=== PATIENT | male | born 1965 | race Caucasian/White ===

== ENCOUNTER 2019-11-04 10:29 | Outpatient (CLI) | payer OTHER, SELFPAY ==
--- NOTE | 2019-11-06 19:44 | WPDPFTINT ---
PFT Interpretation PFT Interpretation: DOS: 11/04/2019 REQUESTING: Tera Clancy MD REASON FOR TESTING: Cough PULMONARY FUNCTION TESTS Results are reproducible. Spirometry: Normal FEV1, 96%. Normal FVC 93%. Normal FEV1%. [id number]% is 71%. No change with bronchodilator. Lung volumes: Normal TLC 108%. Mild increase in RV, 128% consistent with air trapping. Mild increase in airway resistance 139%. Diffusion: DLCO normal 78%. Flow volume loop: Mild scooping of the expiratory limb. IMPRESSION: Mild air trapping and mild increase in airway resistance which are consistent with an obstructive process. Lack of response to bronchodilator does not preclude use if clinically indicated. Christiane Rankin MD
== END 2019-11-04 10:30 | disposition home or self-care (01) ==
PROVIDERS: Visit Provider Student in an Organized Health Care Education/Training Program
DX: R05 Cough (principal); R94.2 Abnormal results of pulmonary function studies
CPT/HCPCS: 94060; 94726; 94729

== ENCOUNTER → 2021-07-18 09:45 | Outpatient (CLI) | payer OTHER, SELFPAY ==
--- NOTE | ~2021-07-18 | US_ITS ---
US thyroid INDICATION: Thyroid goiter TECHNIQUE: Real-time sonographic images of the thyroid gland were obtained. COMPARISON: No prior studies for comparison. FINDINGS: The right thyroid lobe measures 5 x 1.6 x 1.9 cm. The left thyroid lobe measures 4.7 x 1.3 x 1.9 cm. There is normal echotexture and echogenicity throughout the thyroid gland. There is an ova l spongiform hypoechoic left thyroid mass which is wider than tall and smoothly marginated, TR 2, robel suring 6 mm, not suspicious. Normal vascular flow is present. IMPRESSION: 1. Benign-appearing 6 mm left thyroid mass, not suspicious. Otherwise, unremarkable thyroid ultrasou nd. Reviewed, dictated and finalized at location A. CY WRITER IMPRESSION: 1. Benign-appearing 6 mm left thyroid mass, not suspicious. Otherwise, unremar kable thyroid ultrasound.
== END ==
PROVIDERS: PCP Student in an Organized Health Care Education/Training Program; Visit Provider Internal Medicine Endocrinology, Diabetes & Metabolism
DX: E04.9 Nontoxic goiter, unspecified (principal)
CPT/HCPCS: 76536

== ENCOUNTER → 2022-08-07 09:43 | Outpatient (CLI) | payer OTHER, SELFPAY ==
--- NOTE | ~2022-08-07 | US_ITS ---
US thyroid INDICATION: Thyroid goiter TECHNIQUE: Real-time sonographic images of the thyroid gland were obtained. COMPARISON: 07/18/2021 FINDINGS: The right thyroid lobe measures 5.2 x 1.5 x 1.9 cm. The left thyroid lobe measures 4.7 x 1 .4 x 1.7 cm. Thyroid is heterogeneous. There are multiple small thyroid masses, largest in the left l obe measuring 5 x 4 x 3 mm which appears solid, oval, wider than tall, hypoechoic, smoothly marginate d without internal echogenic foci, TR 4, likely benign. IMPRESSION: 1. Mildly enlarged thyroid gland. Multiple small nodules, largest in the left lobe measuring 5 mm wh ich does not meet sonographic criteria for biopsy. Reviewed, dictated and finalized at location A. NG CONSULTANT IMPRESSION: 1. Mildly enlarged thyroid gland. Multiple small nodules, largest in the left lobe measuring 5 mm which does not meet sonographic criteria for biopsy.
--- NOTE | ~2022-08-07 | US_ITS ---
US abdomen limited DATE: 08/07/2022 10:28 INDICATION: Elevated liver function tests TECHNIQUE: Real-time imaging of liver, pancreas, gallbladder COMPARISON: None FINDINGS: The pancreatic tail is obscured. The pancreas otherwise appears unremarkable. Hepatic steatosis. Normal hepatopedal portal venous flow direction. No hepatic space-occupying mass l esion is evident. No gallstones or gallbladder wall thickening. Negative sonographic Cordova's sign. The common bile duct measures 4.8 mm, normal. IMPRESSION: Pancreatic tail is obscured Hepatic steatosis No evidence of cholelithiasis Reviewed, dictated and finalized at [facility]. Reviewed, dictated and finalized at location B. TYPE CASTER
== END ==
PROVIDERS: PCP Internal Medicine Endocrinology, Diabetes & Metabolism; Visit Provider Internal Medicine Endocrinology, Diabetes & Metabolism
DX: R74.01 Elevation of levels of liver transaminase levels (principal); E04.2 Nontoxic multinodular goiter; K76.0 Fatty (change of) liver, not elsewhere classified
CPT/HCPCS: 76536; 76705

== ENCOUNTER 2022-09-16 10:55 | Outpatient (CLI) | payer OTHER, SELFPAY ==
[2022-09-16 11:26] LABS: Basophils Percent Auto 0.4 % (0.2-1.2); Eosinophils Absolute Auto 0.1 K/mm3 (0-0.3); Eosinophils Percent Auto 1.6 % (0-4.4); Hemoglobin 17.2 g/dL (14.0-18.0); Immature Granulocyte Absolute 0.01 K/mm3 (0.00-0.031); Immature Granulocyte Percent A 0.2 % (0-0.5); Lymphocytes Absolute Auto 1.65 K/mm3 (0.9-3.2); Lymphocytes Percent Auto 33.6 % (18.3-44.2); Mean Corpuscular HGB Conc 35.1 g/dl (32-36); Mean Corpuscular Volume 96.8 fl (80-100); Mean Platelet Volume 10.2 fl (7.4-10.4); Monocytes Absolute Auto 0.4 K/mm3 (0.1-0.6); Monocytes Percent Auto 8.6 % (2.6-8.5); Neutrophils Absolute Auto 2.7 K/mm3 (1.3-6.7); Neutrophils Percent Auto 55.6 % (45.5-73.1); Platelet Count Result 208 k/mm3 (150-375); Red Blood Count 5.06 M/mm3 (4.6-6.20); Red Cell Distribution Width 12.9 % (11.5-14.5); White Blood Count 4.9 K/mm3 (4.5-10.0)
[2022-09-16 11:40] LABS: Alanine Aminotransferase 74 U/L (6-50); Albumin Level 4.5 g/dL (3.5-5.1); Alkaline Phosphatase 51 U/L (38-126); Anion Gap 7 mmol/L (8-16); Aspartate Amino Transferase 49 U/L (17-59); Bilirubin,Total 1.2 mg/dL (0.2-1.3); Blood Urea Nitrogen 10 mg/dL (9-20); Calcium 8.8 mg/dL (8.4-10.2); Carbon Dioxide 28 mmol/L (22-30); Chloride 102 mmol/L (98-107); Estimated Glomerular Filt Rate > 60; Glucose 114 mg/dL (65-110); Potassium 4.1 mmol/L (3.4-5.0); Sodium 137 mmol/L (137-145)
[2022-09-16 11:57] LABS: Iron 160 ug/dL (49-181)
[2022-09-16 12:09] LABS: Percent Iron Saturation 45 % (20-50)
[2022-09-20 15:09] LABS: Erythropoietin (EPO) 17.8 mIU/mL (2.6-18.5)
[2022-10-01 15:14] LABS: Hereditary Hemochromatosis PCR Negative
== END 2022-09-16 10:56 | disposition home or self-care (01) ==
LOC: ANHLAB 11:03
PROVIDERS: Visit Provider Internal Medicine Hematology & Oncology
DX: D75.1 Secondary polycythemia (principal); E83.19 Other disorders of iron metabolism
CPT/HCPCS: 36415; 80053; 81256; 82668; 82728; 83540; 83550; 85025

== ENCOUNTER 2023-08-03 10:34 | Outpatient (CLI) | payer OTHER, SELFPAY ==
[2023-08-03 23:14] LABS: Cholesterol 197 mg/dL (0-200); HDL Direct 53 mg/dL; Triglycerides 118 mg/dL (<150)
[2023-08-03 23:24] LABS: LDL Cholesterol Direct 118 mg/dL
[2023-08-03 23:35] LABS: Vitamin D 25 Hydroxy 36.8 ng/mL
[2023-08-03 23:45] LABS: Prostate Specific Antigen 1.8 ng/mL (< OR = 4.0)
== END 2023-08-03 10:35 | disposition home or self-care (01) ==
LOC: ANHLAB 10:36
PROVIDERS: Student in an Organized Health Care Education/Training Program; Visit Provider Internal Medicine Hematology & Oncology
DX: E78.5 Hyperlipidemia, unspecified (principal); Z00.00 Encounter for general adult medical examination without abnormal findings; Z13.220 Encounter for screening for lipoid disorders; Z13.29 Encounter for screening for other suspected endocrine disorder; Z13.228 Encounter for screening for other metabolic disorders; Z13.0 Encounter for screening for diseases of the blood and blood-forming organs and certain disorders involving the immune mechanism; E55.9 Vitamin D deficiency, unspecified; Z12.5 Encounter for screening for malignant neoplasm of prostate
CPT/HCPCS: 36415; 80061; 82306; 84153; 84443; G0103

== ENCOUNTER 2023-08-24 09:53 | Outpatient (RCR) | payer OTHER, SELFPAY ==
--- NOTE | 2023-08-24 11:54 | PTOPEVAL1 ---
Assessment and note entered by Rajendra Robins, PT, DPT Evaluation Information Assessment Status Evaluation Diagnosis lumbar radiculopathy Subjective Information Pt states he has a broken coccyx, DDD, and sciatic nerve damage, all of these are old injuries from the s. He states he likes to get an MRI every year to monitor the progression of his DDD. He states his PCP told him he has to go through therapy before he can get another MRI. He states currently he just hurts all over. He states he cannot sit longer than 20 mins before his tailbone starts to ache and his hips/buttock gets numb. He states if he stands longer than 20 minutes that back of his entire leg. Reported Pain Level Pain Score 3: Self Report Assessment PT Clinical Summary Santiago presents to therapy today for his initial evaluation with a diagnosis of lumbar radiculopathy. He demonstrates decreased lumbar motion in all directions limited by pain, has a positive slump test whitley, and demonstrates decreased intervertebral joint mobility. He was instructed in a HEP this date and elected to try on his own for a month. He states he will call to schedule if needed. Plan of Care PT Services Indicated Yes Treatment Frequency and follow up in 1 month Duration These treatments will address the objective and functional deficits as defined above. The patient will be advanced safely and appropriately in order for the patient to progress towards his/her prior level of function. Additional exercises will be introduced and as well as a comprehensive home exercise program upon discharge, if needed, ?to ensure carryover of functional gains achieved in the clinic. This treatment plan has been reviewed and agreement upon by the patient.
--- NOTE | 2023-10-16 11:29 | PTOPDC ---
Assessment and note entered by Rajendra Robins, PT, DPT Evaluation Information Assessment Status Discharge - Pt Not Present Diagnosis lumbar radiculopathy Subjective Information Called and spoke with pt. He states he has been doing his HEP and has not noticed a change in his pain. He states he is following up with a neurologist, chiropractor, and pain management. He states he does not wish to continue with therapy at this time. Assessment PT Clinical Summary Pt was evaluated on 08/24/23 and did not complete any subsequent treatment. He will be discharged at this time per pt request.
== END 2023-10-16 13:47 | disposition home or self-care (01) ==
LOC: ANHGOSHPT 09:53
PROVIDERS: Visit Provider Student in an Organized Health Care Education/Training Program
DX: M54.16 Radiculopathy, lumbar region (principal)
CPT/HCPCS: 97110; 97161

== ENCOUNTER 2023-11-13 09:44 | Outpatient (CLI) | payer OTHER, SELFPAY ==
--- NOTE | ~2023-11-13 | MR_ITS ---
MRI of the lumbar spine Clinical History: Radiculopathy Technique: Axial T2-weighted images, and sagittal T1-weighted, T2-weighted, and T2 fat-sat images wer e acquired. COMPARISON: 07/27/2018 Findings: No fracture and 5. Stable grade 1 retrolisthesis of L4 over L5. Osseous alignment is unchan ged from prior exam. No suspicious bone marrow signal reality seen. At L1-L2, there is minimal disc bulge and moderate facet arthropathy. No central canal stenosis or ne ural foraminal narrowing. At L2-L3, there is diffuse disc bulge with moderate facet arthropathy. No central canal stenosis or d efinite neural foraminal narrowing. At L3-L4, there is disc bulge and moderate facet arthropathy. No central canal stenosis. Neural nathaly ernesto are preserved. At L4-L5, there is advanced degenerative disc narrowing. There is disc bulge with probable superimpos ed left foraminal disc protrusion, as well as severe facet arthropathy. There is minimal central ronny l stenosis. There is moderate to severe left neural foraminal narrowing. There is mild right neural f oraminal narrowing. At L5-S1, there is mild disc bulge and moderate facet arthropathy. No central canal stenosis or neura l foraminal narrowing. Paravertebral soft tissues are unremarkable. Impression: Moderate to severe degenerative spondylosis at L4-L5, as detailed above. Mild degenerative change in the remainder of the lumbar spine. Reviewed, dictated and finalized at [facility]. LESS SALES REPRESENTATIVE Impression: Moderate to severe degenerative spondylosis at L4-L5, as detailed above. Mild degenerative change in the remainder of the lumbar spine.
== END 2023-11-13 09:45 ==
PROVIDERS: PCP Neurological Surgery; Visit Provider Student in an Organized Health Care Education/Training Program
DX: M43.06 Spondylolysis, lumbar region (principal)
CPT/HCPCS: 72148

== ENCOUNTER 2024-07-01 12:05 | Emergency (ER) | payer OTHER, SELFPAY ==
[2024-07-01 12:25] VITALS: BP 126/86; PULSE 79; RESP 18; TEMP 36.6; O2SAT 98
[2024-07-01 12:36] LABS: Glucose Point of Care 322 mg/dl (65-105)
--- NOTE | 2024-07-01 13:29 | ED.RECABL ---
HPI - Recheck/Abnormal Lab/Rx General Chief Complaint: Recheck/Abnormal Lab/Rx <Filipe Rico PA-C - Last Filed: 07/01/24 13:30> Stated Complaint: high blood sugar <Filipe Rico PA-C - Last Filed: 07/01/24 13:30> Time Seen by Provider: 07/01/24 13:29 <Filipe Rico PA-C - Last Filed: 07/01/24 13:30> Focused HPI: 59-year-old male who presents to the ED for chief complaint of high blood sugars diagnosed earlier this week. Reports blood sugars have been fluctuating in the 3-500 this week. Had recent back surgery for but has never had history of diabetes before. reports PCP started him on metformin this week which helped with the polyuria, polydipsia however patient is still having some general fatigue. he was told to come to rule out DKA. GENERAL: Well-appearing, well-nourished, and in no acute distress. HEAD: Normocephalic, atraumatic. CHEST: Clear to auscultation. No respiratory distress. HEART: Regular rate and rhythm. NEURO: Alert and oriented x3. Patient screened in triage and initial orders placed. Additional care and disposition to be based upon diagnostic testing and treatment. <Filipe Rico PA-C - Last Filed: 07/01/24 13:30> History of Present Illness HPI narrative: Agree with HPI <Rudy Tamez MD - Last Filed: 07/01/24 17:07> Related Data Home Medications: Home Medications Medication Instructions Recorded Confirmed cetirizine 10 mg tablet 10 mg PO DAILY 09/29/22 09/29/22 fluticasone 250 mcg-salmeterol 50 2 inh inhalation BID PRN Shortness 09/29/22 09/29/22 mcg/dose blistr powdr for Of Breath inhalation (Advair Diskus) multivitamin 1 tablet PO DAILY 09/29/22 09/29/22 omeprazole 40 mg capsule,delayed 40 mg PO DAILY 09/29/22 09/29/22 release psyllium 1 packet PO DAILY 09/29/22 09/29/22 <Filipe Rico PA-C - Last Filed: 07/01/24 13:30> Allergies/Adverse Reactions: Allergies Allergy/AdvReac Type Severity Reaction Status Date / Time No Known Allergies Allergy Verified 09/29/22 14:48 <Filipe Rico PA-C - Last Filed: 07/01/24 13:30> Review of Systems Review of Systems: All systems reviewed & are unremarkable except as noted in HPI and below <Rudy Tamez MD - Last Filed: 07/01/24 17:07> Constitutional: Constitutional: Reports no additional constitutional complaints <Rudy Tamez MD - Last Filed: 07/01/24 17:07> Cardiovascular: Cardiovascular: Reports no additional cardiovascular complaints <Rudy Tamez MD - Last Filed: 07/01/24 17:07> Respiratory: Respiratory: Reports no additional respiratory complaints <Rudy Tamez MD - Last Filed: 07/01/24 17:07> Gastrointestinal: Gastrointestinal: Reports no additional gastrointestinal complaints <Rudy Tamez MD - Last Filed: 07/01/24 17:07> Musculoskeletal: Musculoskeletal: Reports no additional musculoskeletal complaints <Rudy Tamez MD - Last Filed: 07/01/24 17:07> PMFSH Past Medical History Medical History: Medical History (Updated 07/01/24 @ 17:04 by Rudy Tamez MD) Diabetes Hemochromatosis <Filipe Rico PA-C - Last Filed: 07/01/24 13:30> Surgical History Surgical History: Surgical History (Updated 07/01/24 @ 17:00 by Rudy Tamez MD) History of back surgery <Filipe Rico PA-C - Last Filed: 07/01/24 13:30> Social History Social History: Social History Smoking status: Never smoker Spiritual care concerns: No <Filipe Rico PA-C - Last Filed: 07/01/24 13:30> Exam Narrative: GENERAL: Well-appearing, well-nourished, and in no acute distress. HEAD: Normocephalic, atraumatic. ENT: Mucous membranes moist. CHEST: Clear to auscultation. No respiratory distress. HEART: Regular rate and rhythm. Normal peripheral pulses. ABDOMEN: Soft, nontender, nondistended. EXTREMITIES: Normal range of motion. No edema. SKIN: Warm, dry, no rash. NEURO: Alert and oriented x3. PSYCH: Normal mood and affect. <Rudy Tamez MD - Last Filed: 07/01/24 17:07> Course Course Emergency Course: Discussed with pts PCP office. May increase to 1,000mg daily or 500mg BID. Continue to take fasting sugar levels. Pt and verbalized understanding. <Rudy Tamez MD - Last Filed: 07/01/24 17:07> Vital Signs Vital signs: Vital Signs Temperature 97.9 F 07/01/24 12:25 Pulse Rate 79 07/01/24 12:25 Respiratory Rate 18 07/01/24 12:25 Blood Pressure 126/86 07/01/24 12:25 Pulse Oximetry 98 07/01/24 12:25 Oxygen Delivery Room Air 07/01/24 12:25 Temperature 97.9 F 07/01/24 12:25 Pulse Rate 63 07/01/24 16:16 Respiratory Rate 10 L 07/01/24 16:16 Blood Pressure 120/78 07/01/24 16:16 Pulse Oximetry 100 07/01/24 16:16 Oxygen Delivery Room Air 07/01/24 12:25 <Filipe Rico PA-C - Last Filed: 07/01/24 13:30> Vital Signs Temperature 97.9 F 07/01/24 12:25 Pulse Rate 79 07/01/24 12:25 Respiratory Rate 18 07/01/24 12:25 Blood Pressure 126/86 07/01/24 12:25 Pulse Oximetry 98 07/01/24 12:25 Oxygen Delivery Room Air 07/01/24 12:25 Temperature 97.9 F 07/01/24 12:25 Pulse Rate 63 07/01/24 16:16 Respiratory Rate 10 L 07/01/24 16:16 Blood Pressure 120/78 07/01/24 16:16 Pulse Oximetry 100 07/01/24 16:16 Oxygen Delivery Room Air 07/01/24 12:25 <Rudy Tamez MD - Last Filed: 07/01/24 17:07> MDM - Recheck/Abnormal Lab/Rx Lab Data Result diagrams: 07/01/24 14:22 07/01/24 14:22 <Filipe Rico PA-C - Last Filed: 07/01/24 13:30> Labs: Lab Results 07/01/24 07/01/24 07/01/24 Range/Units 12:33 14:13 14:22 WBC 6.0 (4.5-10.0) K/mm3 RBC 5.16 (4.6-6.20) M/mm3 Hgb 16.8 (14.0-18.0) g/dL Hct 47.4 (42.0-52.0) % MCV 91.9 (80-100) fl MCH 32.6 (26-34) pg MCHC 35.4 (32-36) g/dl RDW 12.2 (11.5-14.5) % Plt Count 271 (150-375) k/mm3 MPV 10.5 H (7.4-10.4) fl Immature Gran % (Auto) 0.3 (0-0.5) % Neut % (Auto) 64.1 (45.5-73.1) % Lymph % (Auto) 28.6 (18.3-44.2) % [place] % (Auto) 5.5 (2.6-8.5) % Eos % (Auto) 1.2 (0-4.4) % Baso % (Auto) 0.3 (0.2-1.2) % Lymph # (Auto) 1.71 (0.9-3.2) K/mm3 [place] # (Auto) 0.3 (0.1-0.6) K/mm3 Eos # (Auto) 0.1 (0-0.3) K/mm3 Baso # (Auto) 0.0 (0.0-0.1) K/mm3 Abs Immat Gran (auto) 0.02 (0.00-0.031) K/mm3 Absolute Neuts (auto) 3.8 (1.3-6.7) K/mm3 Absolute Nucleated RBC 0.000 (0.0-0.012) K/mm3 Nucleated RBC % 0.0 (0.0-0.2) % Sodium 135 L (137-145) mmol/L Potassium 4.2 (3.4-5.0) mmol/L Chloride 96 L (98-107) mmol/L Carbon Dioxide 29 (22-30) mmol/L Anion Gap 10 (4-12) mmol/L BUN 12 (9-20) mg/dL Creatinine 0.90 (0.7-1.3) mg/dL Estim Creat Clear Calc 117 ml/min Estimated GFR > 60 (59 - ) Glucose 263 H (65-110) mg/dL POC Capillary Glucose 322 H (65-105) mg/dl Calcium 9.7 (8.4-10.2) mg/dL Total Bilirubin 1.0 (0.2-1.3) mg/dL AST 32 (17-59) U/L ALT 34 (6-50) U/L Alkaline Phosphatase 85 (38-126) U/L Total Protein 9.0 H (6.3-8.2) g/dL Albumin 4.8 (3.5-5.1) g/dL Beta-Hydroxybutyrate/Acetoacetate 0.50 H (0.02-0.27) mmol/L Urine Color Yellow (Yellow) Urine Appearance Clear (Clear) Urine pH 5.0 (5.0-9.0) Ur Specific [place] 1.020 (1.001-1.035) Urine Protein Negative (Negative) mg/dL Urine Glucose (UA) 3+ H (Negative) mg/dL Urine Ketones 1+ H (Negative) mg/dL Ur Blood (Man) Negative (Negative) Urine Nitrate Negative (Negative) Urine Bilirubin Negative (Negative) Urine Urobilinogen 0.2 (<2.0) mg/dL Leukocyte Esterase Rfl Negative (Negative) MICHELLE/UL 07/01/24 Range/Units 16:18 WBC (4.5-10.0) K/mm3 RBC (4.6-6.20) M/mm3 Hgb (14.0-18.0) g/dL Hct (42.0-52.0) % MCV (80-100) fl MCH (26-34) pg MCHC (32-36) g/dl RDW (11.5-14.5) % Plt Count (150-375) k/mm3 MPV (7.4-10.4) fl Immature Gran % (Auto) (0-0.5) % Neut % (Auto) (45.5-73.1) % Lymph % (Auto) (18.3-44.2) % [place] % (Auto) (2.6-8.5) % Eos % (Auto) (0-4.4) % Baso % (Auto) (0.2-1.2) % Lymph # (Auto) (0.9-3.2) K/mm3 [place] # (Auto) (0.1-0.6) K/mm3 Eos # (Auto) (0-0.3) K/mm3 Baso # (Auto) (0.0-0.1) K/mm3 Abs Immat Gran (auto) (0.00-0.031) K/mm3 Absolute Neuts (auto) (1.3-6.7) K/mm3 Absolute Nucleated RBC (0.0-0.012) K/mm3 Nucleated RBC % (0.0-0.2) % Sodium (137-145) mmol/L Potassium (3.4-5.0) mmol/L Chloride (98-107) mmol/L Carbon Dioxide (22-30) mmol/L Anion Gap (4-12) mmol/L BUN (9-20) mg/dL Creatinine (0.7-1.3) mg/dL Estim Creat Clear Calc ml/min Estimated GFR (59 - ) Glucose (65-110) mg/dL POC Capillary Glucose 228 H (65-105) mg/dl Calcium (8.4-10.2) mg/dL Total Bilirubin (0.2-1.3) mg/dL AST (17-59) U/L ALT (6-50) U/L Alkaline Phosphatase (38-126) U/L Total Protein (6.3-8.2) g/dL Albumin (3.5-5.1) g/dL Beta-Hydroxybutyrate/Acetoacetate (0.02-0.27) mmol/L Urine Color (Yellow) Urine Appearance (Clear) Urine pH (5.0-9.0) Ur Specific [place] (1.001-1.035) Urine Protein (Negative) mg/dL Urine Glucose (UA) (Negative) mg/dL Urine Ketones (Negative) mg/dL Ur Blood (Man) (Negative) Urine Nitrate (Negative) Urine Bilirubin (Negative) Urine Urobilinogen (<2.0) mg/dL Leukocyte Esterase Rfl (Negative) MICHELLE/UL <Filipe Rico PA-C - Last Filed: 07/01/24 13:30> Lab Results 07/01/24 07/01/2424 Range/Units 12:33 14:13 14:22 WBC 6.0 (4.5-10.0) K/mm3 RBC 5.16 (4.6-6.20) M/mm3 Hgb 16.8 (14.0-18.0) g/dL Hct 47.4 (42.0-52.0) % MCV 91.9 (80-100) fl MCH 32.6 (26-34) pg MCHC 35.4 (32-36) g/dl RDW 12.2 (11.5-14.5) % Plt Count 271 (150-375) k/mm3 MPV 10.5 H (7.4-10.4) fl Immature Gran % (Auto) 0.3 (0-0.5) % Neut % (Auto) 64.1 (45.5-73.1) % Lymph % (Auto) 28.6 (18.3-44.2) % [place] % (Auto) 5.5 (2.6-8.5) % Eos % (Auto) 1.2 (0-4.4) % Baso % (Auto) 0.3 (0.2-1.2) % Lymph # (Auto) 1.71 (0.9-3.2) K/mm3 [place] # (Auto) 0.3 (0.1-0.6) K/mm3 Eos # (Auto) 0.1 (0-0.3) K/mm3 Baso # (Auto) 0.0 (0.0-0.1) K/mm3 Abs Immat Gran (auto) 0.02 (0.00-0.031) K/mm3 Absolute Neuts (auto) 3.8 (1.3-6.7) K/mm3 Absolute Nucleated RBC 0.000 (0.0-0.012) K/mm3 Nucleated RBC % 0.0 (0.0-0.2) % Sodium 135 L (137-145) mmol/L Potassium 4.2 (3.4-5.0) mmol/L Chloride 96 L (98-107) mmol/L Carbon Dioxide 29 (22-30) mmol/L Anion Gap 10 (4-12) mmol/L BUN 12 (9-20) mg/dL Creatinine 0.90 (0.7-1.3) mg/dL Estim Creat Clear Calc 117 ml/min Estimated GFR > 60 (59 - ) Glucose 263 H (65-110) mg/dL POC Capillary Glucose 322 H (65-105) mg/dl Calcium 9.7 (8.4-10.2) mg/dL Total Bilirubin 1.0 (0.2-1.3) mg/dL AST 32 (17-59) U/L ALT 34 (6-50) U/L Alkaline Phosphatase 85 (38-126) U/L Total Protein 9.0 H (6.3-8.2) g/dL Albumin 4.8 (3.5-5.1) g/dL Beta-Hydroxybutyrate/Acetoacetate 0.50 H (0.02-0.27) mmol/L Urine Color Yellow (Yellow) Urine Appearance Clear (Clear) Urine pH 5.0 (5.0-9.0) Ur Specific [place] 1.020 (1.001-1.035) Urine Protein Negative (Negative) mg/dL Urine Glucose (UA) 3+ H (Negative) mg/dL Urine Ketones 1+ H (Negative) mg/dL Ur Blood (Man) Negative (Negative) Urine Nitrate Negative (Negative) Urine Bilirubin Negative (Negative) Urine Urobilinogen 0.2 (<2.0) mg/dL Leukocyte Esterase Rfl Negative (Negative) MICHELLE/UL 07/01/24 Range/Units 16:18 WBC (4.5-10.0) K/mm3 RBC (4.6-6.20) M/mm3 Hgb (14.0-18.0) g/dL Hct (42.0-52.0) % MCV (80-100) fl MCH (26-34) pg MCHC (32-36) g/dl RDW (11.5-14.5) % Plt Count (150-375) k/mm3 MPV (7.4-10.4) fl Immature Gran % (Auto) (0-0.5) % Neut % (Auto) (45.5-73.1) % Lymph % (Auto) (18.3-44.2) % [place] % (Auto) (2.6-8.5) % Eos % (Auto) (0-4.4) % Baso % (Auto) (0.2-1.2) % Lymph # (Auto) (0.9-3.2) K/mm3 [place] # (Auto) (0.1-0.6) K/mm3 Eos # (Auto) (0-0.3) K/mm3 Baso # (Auto) (0.0-0.1) K/mm3 Abs Immat Gran (auto) (0.00-0.031) K/mm3 Absolute Neuts (auto) (1.3-6.7) K/mm3 Absolute Nucleated RBC (0.0-0.012) K/mm3 Nucleated RBC % (0.0-0.2) % Sodium (137-145) mmol/L Potassium (3.4-5.0) mmol/L Chloride (98-107) mmol/L Carbon Dioxide (22-30) mmol/L Anion Gap (4-12) mmol/L BUN (9-20) mg/dL Creatinine (0.7-1.3) mg/dL Estim Creat Clear Calc ml/min Estimated GFR (59 - ) Glucose (65-110) mg/dL POC Capillary Glucose 228 H (65-105) mg/dl Calcium (8.4-10.2) mg/dL Total Bilirubin (0.2-1.3) mg/dL AST (17-59) U/L ALT (6-50) U/L Alkaline Phosphatase (38-126) U/L Total Protein (6.3-8.2) g/dL Albumin (3.5-5.1) g/dL Beta-Hydroxybutyrate/Acetoacetate (0.02-0.27) mmol/L Urine Color (Yellow) Urine Appearance (Clear) Urine pH (5.0-9.0) Ur Specific [place] (1.001-1.035) Urine Protein (Negative) mg/dL Urine Glucose (UA) (Negative) mg/dL Urine Ketones (Negative) mg/dL Ur Blood (Man) (Negative) Urine Nitrate (Negative) Urine Bilirubin (Negative) Urine Urobilinogen (<2.0) mg/dL Leukocyte Esterase Rfl (Negative) MICHELLE/UL <Rudy Tamez MD - Last Filed: 07/01/24 17:07> Discharge Plan Discharge Clinical Impression: Hyperglycemia <Filipe Rico PA-C - Last Filed: 07/01/24 13:30> Patient Disposition: Home, Self-Care <Filipe Rico PA-C - Last Filed: 07/01/24 13:30> Condition: Stable <Filipe Rico PA-C - Last Filed: 07/01/24 13:30> Instructions: Diabetic Hyperglycemia (ED) <Filipe Rico PA-C - Last Filed: 07/01/24 13:30> Additional Instructions: Return the ER if you have fever over 100.4? F, you cannot keep down food water, you lose consciousness, or have additional concerns. <Filipe Rico PA-C - Last Filed: 07/01/24 13:30> Prescriptions: No Action multivitamin Tablet 1 tablet PO DAILY fluticasone propion-salmeterol [Advair Diskus] 250-50 mcg/dose blister with device 2 inh INHALATION BID PRN (Reason: Shortness Of Breath) cetirizine 10 mg tablet 10 mg PO DAILY Metamucil Packet 1 packet PO DAILY Rx Instructions: mix into at least 8 oz of water or juice before administering omeprazole 40 mg capsule,delayed release(DR/EC) 40 mg PO DAILY <Filipe Rico PA-C - Last Filed: 07/01/24 13:30> Follow-up/Referrals: Aston,DO Tera [Primary Care Provider] - 1 Week <Filipe Rico PA-C - Last Filed: 07/01/24 13:30>
[2024-07-01 14:20] LABS: Add Urine Microscopic? NO; Appearance Urine Clear (Clear); Bilirubin Urine Negative (Negative); Blood Urine Negative (Negative); Color Urine Yellow (Yellow); Glucose Urine UA 3+ mg/dL (Negative); Ketones Urine 1+ mg/dL (Negative); Leukocyte Esterase Ur Negative LEU/UL (Negative); Nitrate Urine Negative (Negative); Protein Urine Negative (Negative); Urobilinogen Urine 0.2 mg/dL (<2.0)
[2024-07-01] MEDS: SODIUM CHLORIDE 0.9% IV 1,000 ML 999 ML IV CONT (14:25)
[2024-07-01 14:26] VITALS: BP 120/84; PULSE 70; RESP 14; O2SAT 100; O2SAT 99
[2024-07-01 14:30] LABS: Basophils Percent Auto 0.3 % (0.2-1.2); Eosinophils Absolute Auto 0.1 K/mm3 (0-0.3); Eosinophils Percent Auto 1.2 % (0-4.4); Hematocrit 47.4 % (42.0-52.0); Hemoglobin 16.8 g/dL (14.0-18.0); Immature Granulocyte Absolute 0.02 K/mm3 (0.00-0.031); Immature Granulocyte Percent A 0.3 % (0-0.5); Lymphocytes Absolute Auto 1.71 K/mm3 (0.9-3.2); Lymphocytes Percent Auto 28.6 % (18.3-44.2); Mean Corpuscular HGB Conc 35.4 g/dl (32-36); Mean Corpuscular Hemoglobin 32.6 pg (26-34); Mean Corpuscular Volume 91.9 fl (80-100); Mean Platelet Volume 10.5 fl (7.4-10.4); Monocytes Absolute Auto 0.3 K/mm3 (0.1-0.6); Monocytes Percent Auto 5.5 % (2.6-8.5); Neutrophils Absolute Auto 3.8 K/mm3 (1.3-6.7); Neutrophils Percent Auto 64.1 % (45.5-73.1); Platelet Count Result 271 k/mm3 (150-375); Red Blood Count 5.16 M/mm3 (4.6-6.20); Red Cell Distribution Width 12.2 % (11.5-14.5)
[2024-07-01 14:40] LABS: Alanine Aminotransferase 34 U/L (6-50); Albumin Level 4.8 g/dL (3.5-5.1); Alkaline Phosphatase 85 U/L (38-126); Anion Gap 10 mmol/L (4-12); Aspartate Amino Transferase 32 U/L (17-59); Blood Urea Nitrogen 12 mg/dL (9-20); Calcium 9.7 mg/dL (8.4-10.2); Carbon Dioxide 29 mmol/L (22-30); Chloride 96 mmol/L (98-107); Estimated CRCL calculation 117 ml/min; Estimated Glomerular Filt Rate > 60; Glucose 263 mg/dL (65-110); Potassium 4.2 mmol/L (3.4-5.0); Sodium 135 mmol/L (137-145)
[2024-07-01 16:16] VITALS: BP 120/78; PULSE 63; RESP 10; O2SAT 100
[2024-07-01 16:21] LABS: Glucose Point of Care 228 mg/dl (65-105)
[2024-07-01 17:17] VITALS: BP 120/80; PULSE 72; RESP 20; TEMP 36.4; O2SAT 98
== END 2024-07-01 17:19 | disposition home or self-care (01) ==
PROVIDERS: Physician Assistant; Emergency Provider Emergency Medicine; PCP Student in an Organized Health Care Education/Training Program
DX: E11.65 Type 2 diabetes mellitus with hyperglycemia (principal); Z79.84 Long term (current) use of oral hypoglycemic drugs
CPT/HCPCS: 36415; 80053; 81003; 82010; 82948; 85025; 96360; 96361; 99283; J7030

== ENCOUNTER 2024-08-16 12:53 | Outpatient (CLI) | payer OTHER, SELFPAY ==
--- NOTE | ~2024-08-16 | CT_ITS ---
CT OF left foot EXAMINATION: CT foot LT wo con DATE: 08/16/2024 13:25 INDICATION: Avulsion fracture TECHNIQUE: Computed tomography (CT) of the left foot was performed without intravenous contrast. Auto mated exposure control and iterative reconstruction technique were employed. The dose-length product was 180.40 mGy-cm. COMPARISON: None FINDINGS: Normal mineralization. Mild degenerative changes at the tibiotalar joint, first MTP joint, and and mu ltiple midfoot joints. No fracture or dislocation. Plantar and Achilles enthesopathy. Os trigonum. Th e flexor and extensor tendons are intact. IMPRESSION: No acute osseous finding in the left foot Reviewed, dictated and finalized at location K. CLE ASSEMBLER
== END 2024-08-16 12:54 | disposition home or self-care (01) ==
LOC: MICIMG 12:53
PROVIDERS: PCP Student in an Organized Health Care Education/Training Program; Visit Provider Student in an Organized Health Care Education/Training Program
DX: S92.312A Displaced fracture of first metatarsal bone, left foot, initial encounter for closed fracture (principal); X58.XXXA Exposure to other specified factors, initial encounter
CPT/HCPCS: 73700

== ENCOUNTER 2025-03-17 11:32 | Outpatient (CLI) | payer OTHER, SELFPAY ==
--- OUTSIDE RECORDS SUMMARY | 2025-03-17 11:35 | XMS_ITS | Encounter Summary ---
Author Name [facility] [place] Organization [facility] [place] Address [address] [place] [address] Care Team Providers Care Casting Machine Operator Name Role Phone SPIKE NGUYEN Primary Care Provider Unavailabl e Insurance Providers: All historical and current Section Date Range: From patient's date of to the date document was created. This section includes the names of all active insurance providers for the patient. Insurance Provider Type of Coverage Plan Name Start of Policy Coverage End of Policy Coverage Group Number Member ID Insurance Provider's Telephone Number Policy Wayne's Name Patient's Relationship to Policy Wayne [facility] 2024 [facility] Sep 07, 2024 SELECT [id number] ELDA COBIAN PATIENT Selected Encounter This section includes the information on record at [place] for the Encounter. Date/Time Encounter Type Encounter Description Reason Provider Source Apr 18, 2024 10:00 AM OFFICE O/P EST HI 40 MIN PRIMARY CARE/MEDICINE ICD-10-CM J45.909 Unspecified asthma, uncomplicated JAZMÍN,YOUNG MMA N I[facility] Encounter Template Text not used by [place] Assessments - Encounter Diagnoses This section includes the primary and secondary diagnoses documented for the Encounter. Date/Time Primary/Secondary Diagnosis Diagnosis Name Provider Source Apr 18, 2024 10:48 AM PRIMARY Unspecified asthma, uncomplicated JAZMÍN,CHIDIM MA N [facility] Apr 18, 2024 10:48 AM SECONDARY Chronic rhinitis JAZMÍNMAIKEL Weir MA [facility] Apr 18, 2024 10:48 AM SECONDARY Gastro-esophageal reflux disease without esophagitis MAIKEL NOYOLA MA N [facility] Apr 18, 2024 10:48 AM SECONDARY Hyperlipidemia, unspecified JAZMÍN,MAIKEL BALDWIN N [facility] Apr 18, 2024 10:48 AM SECONDARY Low back pain, unspecified JAZMÍNMAIKEL MA N [facility] Apr 18, 2024 10:48 AM SECONDARY Vitamin D deficiency, unspecified JAZMÍN,MAIKEL BALDWIN N [facility] Plan of Treatment: Future Appointments (+ 6 months) and Future Tests (+/- 45 days) The Plan of Treatment section includes future care activities for the [facility] This section includes future appointments and future orders which are active, pending or scheduled. Future Appointments This section includes appointments that were scheduled to occur 6 months from the date of the Encounter, up to a maximum of 20 appointments. The data comes from all [facility]. Appointment Date/Time Appointment Type Appointme nt Facility Name Jul 22, 2024 03:00 PM AMBULATORY - MEDICINE [facility] Jul 29, 2024 12:30 PM AMBULATORY - MEDICINE [facility] Vital Signs: All taken on the encounter date This section contains inpatient and outpatient Vital Signs collected on the date of the Encounter. Date/Time Temperature Pulse Blood Pressure Respiratory Rate SP02 Pain Height Weight Body Mass Index Source Apr 18, 2024 10:09 AM 97.7 60 117/78 18 96 6 76 328 40 [facility] Social History: Smoking Status (Most current) and Tobacco Use (All prior to encounter date) This section includes the most current, and the historical, smoking and tobacco- related health factors from the [place] facility where the Encounter took place. Current Smoking Status This section includes the most current smoking, or tobacco-related health factor, from the [place] facility where the Encounter took place. Date/Time Current Smoking Status Comment Facil ity Sep 25, 2023 03:30 PM VA-TOBACCO NEVER USED [facility] Encounter Notes: All associated encounter notes This section contains the clinical notes associated to the Encounter. Date/Time Encounter Note(s) Provider Source Apr 18, 2024 10:21 AM PRIMARY CARE NOTE: LOCAL TITLE: PRIMARY CARE PROVIDER ESTABLISHED VISIT [facility] STANDARD TITLE: PRIMARY CARE NOTE DATE OF NOTE: APR 18, 2024@10:21 ENTRY DATE: APR 18, 2024@10:21:32 AUTHOR: MARYCHUY NOYOLA COSIGNER: URGENCY: STATUS: COMPLETED ESTABLISHED PATIENT VISIT. Please note that this encounter note was dictated with computer voice recognition software, often unanticipated grammatical, syntax and other interpretive errors are inadvertently transcribed by the computer software. Please disregard these errors if noted. Private providers: PCP: Dr. Aston Haley: Functional Mental Disability Teacher Dr Alarcon: ROSAVLA Day [facility] Chief Complaint: Six-month check-up, scheduled back surgery HPI: Patient presents for a six-month check-up and reports scheduled back surgery on May [address] Mauricio at [facility]. Has experienced numbness and severe pain in right calf since July last year. Currently taking extra calcium before surgery and uses gabapentin as needed, along with Tylenol and Ibuprofen. Has tried opioids but did not like them. History of acid reflux and undergoes colonoscopy/endoscopy through civilian provider every five years, last one three years ago by Dr. Alarcon. Plans to resume exercising and working out after 8 to 10 week recovery period following surgery. Denies nicotine use. Occasional alcohol use, has not had alcohol since this month due to the planned surgery. Denies chest pain, fever, chills, unintentional weight loss, palpitations, dizziness, loss of bladder or bowel control, or saddle anesthesia. SOURCE(S) OF HISTORY: Patient and chart review. PAST MEDICAL HISTORY: 1) Asthma ([facility] [id number]) 2) GERD - Gastro-Esophageal Reflux Disease ([facility] [id number]) 3) Hyperlipidemia ([facility] [id number]) 4) Chronic rhinitis 5) Low back pain 6) Vitamin D Deficiency ([facility] [id number]) 7) Exposure to potentially hazardous substance ALLERGIES: Patient has answered NKA ALLERGY REVIEW: Allergy list reviewed and remained current. MEDICATIONS: Active and Recently Outpatient Medications (excluding Supplies): Active Outpatient Medications Status 1) ALBUTEROL 90MCG (CFC-F) 200D ORAL INHL INHALE 2 PUFFS ACTIVE ORAL INHALATION FOUR TIMES A DAY NEEDED FOR ASTHMA SHAKE WELL. RINSE MOUTHPIECE FREQUENTLY TO PREVENT CLOGGING. 2) CETIRIZINE HCL 10MG TAB TAKE ONE TABLET BY MOUTH ONCE ACTIVE A DAY FOR ALLERGY SYMPTOMS 3) CHOLECALCIF 25MCG (D3-1,000UNIT) TAB TAKE ONE TABLET ACTIVE BY MOUTH ONCE A DAY FOR VITAMIN D DEFICIENCY 4) FLUTICAS 250/SALMETEROL 50 INHL DISK 60 INHALE 1 ACTIVE INHALATION ORAL INHALATION TWICE A DAY FOR ASTHMA (OPEN DISKUS; CLICK ONLY ONCE; MAY INHALE TWICE TO COMPLETE DOSE; CLOSE WHEN FINISHED) RINSE MOUTH AND SPIT AFTER EACH USE. 5) GABAPENTIN 300MG CAP TAKE ONE CAPSULE BY MOUTH AT ACTIVE BEDTIME FOR NERVE PAIN 6) MONTELUKAST NA 10MG TAB TAKE ONE TABLET BY MOUTH ACTIVE EVERY EVENING FOR ASTHMA 7) OMEPRAZOLE 40MG EC CAP TAKE ONE CAPSULE BY MOUTH ACTIVE EVERY MORNING BEFORE A MEAL FOR GASTROESOPHAGEAL REFLUX DISEASE TAKE 30 MINUTES PRIOR TO FOOD. 8) ROSUVASTATIN CA 20MG TAB TAKE ONE-HALF TABLET BY ACTIVE MOUTH EVERY EVENING FOR HIGH CHOLESTEROL Active Non-VA Medications Status 1) Non-VA ASPIRIN 81MG EC TAB 81MG BY MOUTH ONCE A DAY ACTIVE 2) Non-VA CURCUMA CAP/TAB 1 CAP/TAB BY MOUTH ONCE A DAY ACTIVE 3) Non-VA MULTIVITAMIN CAP/TAB BY MOUTH ACTIVE 4) Non-VA NON-FORMULARY TAB GUAIFENESIN 1200MG / ACTIVE PSEUDOEPHEDRINE 60MG BY MOUTH ONCE A DAY 5) Non-VA TRIAMCINOLONE ACET 55MCG 120D LA NE[place] SPRAY 2 ACTIVE PUFFS NOSTRIL(S) ONCE A DAY 13 Total Medications REVIEW OF SYSTEMS: See HPI for pertinent positives. All 11 systems reviewed. PHYSICAL EXAMINATION: VITALS (most recent, as listed in the electronic record): Temperature: 97.7 F [36.5 C] (04/18/2024 10:09) BP: 117/78 (04/18/2024 10:09) Pulse: 60 (04/18/2024 10:09) Resp: 18 (04/18/2024 10:09) Pulse: 96% (04/18/2024 10:09) Pain: 6 (04/18/2024 10:09) Weight: Measurement DT WEIGHT LB(KG)[BMI] 04/18/2024 10:09 328(148.78)[40*] 10/02/2023 12:39 322(146.06)[39*] GEN: Normal appearance. Alert and oriented to person, place, and time. HEENT: Normocephalic, EOMI, Anicteric, Moist mucous membranes. PULM: Normal breath sounds. Clear to auscultation bilaterally. No accessory muscle use. CARDIOVASCULAR: NR, RR, Normal heart sounds. ABD: Soft, non-tender and non-distended. No palpable masses. : Deferred, not clinically indicated. EXTR: No edema. Normal peripheral pulses. MSK: Normal range of motion. Ambulates independently. Gait steady. DERM: Warm and dry. No concerning skin lesion noted on exposed skin. NEURO: No focal deficits noted MH: Cooperative. Appropriate mood and affect. No SI/HI. ASSESSMENT/PLAN: #. Degenerative Disc Disease, Lumbar Spine - Scheduled for back surgery on 05/10/[address] Mauricio at [facility] - Continue current medications: - Gabapentin as needed - Tylenol - Ibuprofen - Encourage healthy diet for optimal post-op recovery. - Denies loss of bowel/bladder control/saddle anesthesia. - Reviewed symptoms that warrant ED visit. #. Radiculopathy, Right Lower Extremity - Monitor for improvement in symptoms post-op. - Continue gabapentin as needed for pain management. #. Hypogonadism, on testosterone replacement. Continue current management. #. Vitamin D Deficiency - Currently taking vitamin D supplements. #. GERD -Controlled omeprazole 40 mg daily. - Had endoscopy and colonoscopy 3 years ago. - Encourage obtaining documentation for records update. #. Asthma/Chronic rhinitis. - Using inhalers daily with improvement in symptoms. - Continue current inhaler regimen. #. Hyperlipidemia - Medication: Rosuvastatin 10 mg. - Denies/will monitor for new or worsening myalgia. - Trend lipid profile/LFTs. - Encouraged healthy lifestyle to reduce ASCVD risk. - Continue current management. #. Colonoscopy Follow-up - Last colonoscopy 3 years ago, next due in 2 years. #. Health Maintenance: -Reviewed recommended screening and Benefits. -Reviewed recommended immunizations. -Education provided on applicable Lifestyle modifications. -Reviewed Crisis hotline and encourage to us if needed. -Patient is aware of the 30/03 Veterans Crisis Line: , press 1 for Veterans. RETURN TO CLINIC: 6 Months. SUMMARY STATEMENT: Plan of care has been discussed with including expected therapeutic benefits and potential side effects of prescribed medication and treatments. verbalizes understanding and is in agreement with the plan of care. Patient was instructed to keep all scheduled appointments and contact retail account specialist for any additional problems. Screen for Embedded Fragments: SCREEN FOR EMBEDDED FRAGMENTS The patient reports no embedded fragments. /ted/ MARYCHUY NOYOLA NURSE PRACTITIONER Signed: 04/18/2024 10:48 MARYCHUY NOYOLA [facility] Apr 18, 2024 10:13 AM NURSING NOTE: LOCAL TITLE: V15 PACT FACE TO FACE NOTE STL STANDARD TITLE: NURSING NOTE DATE OF NOTE: APR 18, 2024@10:13 ENTRY DATE: APR 18, 2024@10:13:22 AUTHOR: NORBERTO RAMON EXP COSIGNER: URGENCY: STATUS: COMPLETED Provider Visit: Patient Identifiers : Full Name Date of Reason for visit: Established Follow-Up 58 yr old male. Pt is alert and ambulatory. Pt is able to amke his needs known and has complaints pain. Pt states he will be having back surgery on May for a cage placement L4 and L5. Mode of Arrival: Ambulatory Allergy Review: Patient has answered NKA Allergy list reviewed and remains current. Recent Vital Signs: Temperature: 97.7 F [36.5 C] (04/18/2024 10:09) Pulse: 60 (04/18/2024 10:09) Respiration: 18 (04/18/2024 10:09) B/P: 117/78 (04/18/2024 10:09) Pain: 6 (04/18/2024 10:09) Wt: 328 lb [148.78 kg] (04/18/2024 10:09) Ht: 76 in [193.0 cm] (04/18/2024 10:09) BMI: 40.0 POX: 96% (04/18/2024 10:09) Blood sugar glucometer reading: N/A Would you like to discuss any personal problem, family problem, alcohol use, drug use, or a mental or emotional illness? No My [facility] ([facility]), please select appointment type: Face to face: Yes-Do you have an upgraded (Premium) account which gives you the added benefit of Secure Messaging with your Primary Care Provider and refilling your prescriptions online? Contact provided Primary Care phone number and encouraged to call if any questions or concerns. Review that after hours nurse line [phone] and emergency room are available 30/03 for patient use. Contact verbalized good understanding. COVID-19 Immunization: Refused Moderna Monovalent COVID-19 vaccine Immunization: COVID-19 (MODERNA), MRNA, LNP-S, PF, 50 MCG/0.5 ML (AGES 12+ YEARS) Refusal Reason: PATIENT DECISION Patient refuses all immunization(s) in the COVID-19 group Date Documented: 04/18/24 10:16 Refused Pfizer Monovalent COVID-19 vaccine Immunization: COVID-19 (PFIZER), MRNA, LNP-S, PF, EVARISTO-SUCROSE, 30 MCG/0.3 ML (AGES 12+ YEARS) Refusal Reason: PATIENT DECISION Patient refuses all immunization(s) in the COVID-19 group Date Documented: 04/18/24 10:16 /ted/ NORBERTO RAMON Licensed Practical Nurse Signed: 04/18/2024 10:16 NORBERTO RAMON [facility]
--- OUTSIDE RECORDS SUMMARY | 2025-03-17 11:35 | XMS_ITS | Encounter Summary ---
Author Organization [facility] Address [address] [place] [address] Care Team Providers Care Coupon Clerk Name Role Phone Tera Clancy Primary Care Provider + Encounter Details Date Type Department Care Team (Latest Contact Info) Description 01/06/2025 TweepsMap Message Enc [facility] Multispecialty Care - [address], [address] [place] [phone] [facility], [facility] Provider Reminder of your upcoming appointment Social History Tobacco Use Types Packs/Day Years Used Date Smoking Tobacco: Never Smokeless Tobacco: Never Alcohol Use Standard Drinks/Week Comments Not Currently 0 (1 standard drink = 0.6 oz pur e alcohol) rare / stopped Apr 2024 B1300 Health Literacy Answer Date Recor ded How often do you need to hav e someone help you when you read instructions, pamphlets, or other written material from your doctor or pharmacy? Never 05/10/2024 [facility] Utilities Answer Date Recorded In the past 12 months has [place], gas, oil, or water Kleer threatened to shut off services in your home? No 05/10/2024 Humiliation, Afraid, Rape, and Kick questionnair e Answer Date Recorded Within the last year, have y ou been afraid of your partner or ex-partner? No 05/10/2024 Within the last year, have y ou been humiliated or emotionally abused in other ways by your partner or ex-partner? No Within the last year, have y ou been kicked, hit, slapped, or otherwise physically hurt by your partner or ex-partner? No 05/10/2024 Within the last year, have y ou been raped or forced to have any kind of sexual activity by your partner or ex-partner? No 05/10/2024 AUDIT-C Answer Date Recorded Frequency of Alcohol Consumption 2-4 times a mon 10/29/2018 Average Number of Drinks Not on file 019 Frequency of Binge Drinking Not on file 10/09 Overall Financial Resource Strain (CARDIA) Answe r Date Recorded How hard is it for you to pa y for the very basics like food, housing, medical care, and heating? Not hard at all 05/10/2024 PHQ-2 Answer Date Recorded Patient Health Questionnaire-2 Score 0 11/17/2024 [facility] [place] of Occupat ional Health - Occupational Stress Questionnaire Answer Date Recorded Do you feel stress - tense, restless, nervous, or anxious, or unable to sleep at night because your mind is troubled all the time - these days? Not at all 05/10/2024 Exercise Vital Sign Answer Date Recorde d On average, how many days pe r week do you engage in moderate to strenuous exercise (like a brisk walk)? 3 days 05/10/2024 On average, how many minutes do you engage in exercise at this level? 30 min 05/10/2024 Hunger Vital Sign Answer Date Recorded Within the past 12 months, y ou worried that your food would run out before you got the money to buy more. Never true 05/10/20 24 Within the past 12 months, t he food you bought just didn't last and you didn't have money to get more. Never true 05/10/2024 PRAPARE - Transportation Answer Date Re corded In the past 12 months, has l ack of transportation kept you from medical appointments or from getting medications? No 11/2023 In the past 12 months, has l ack of transportation kept you from meetings, work, or from getting things needed for daily living? No 05/10/2024 Housing Stability Vital Sign Answer Sridhar e Recorded In the last 12 months, was t here a time when you were not able to pay the mortgage or rent on time? No 05/10/2024 In the past 12 months, how m any times have you moved where you were living? 1 05/10/2024 At any time in the past 12 m [facility], were you homeless or living in a custodial (including now)? 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 Answer Date of Assessment Author Status No 05/10/2024 4:17 PM CDT Kalina Casas RN Active * Do you have serious difficulty walking or climbing stairs? Answer Date of Assessment Author Status No 05/10/2024 4:17 PM KAMINIT Kalina Casas RN Active * Do you have difficulty dressing or bathing? Answer Date of Assessment Author Status No 05/10/2024 4:17 PM KAMINIT Kalina Casas RN Active * Because of a physical, mental, or emotional condition, do you have difficulty doing errands alone such as visiting a doctor's office or shopping? Answer Date of Assessment Author Status No 05/10/2024 4:17 PM KAMINIT Kalina Casas RN Active documented as of this encounter Mental Status * Because of a physical, mental, or emotional condition, do you have serious difficulty concentrating, remembering, or making decisions? Answer Entry Date Author Status No 05/10/2024 4:17 PM KAMINIT Kalina Casas RN Active documented in this encounter Plan of Treatment Upcoming Encounters Date Type Department Care Team (Late st Contact Info) Description 03/23/2025 11:20 AM CDT Office Visit [facility] Medical [facility] Family & Internal Medicine [address] [phone] Tera Clancy, [address] [place] [phone] 05/15/2025 1:20 PM CDT Office Visit [facility] Group Multispecialty Care - [facility] [address] [facility], [address] [place] [address] Sugar Christine APRN [address] [facility] [address] [place] [address] documented as of this encounter Goals Goal Patient Goal Type Associated Problems Recent Progress Patient-Stated? Author Family - family caregiver with be involved in care transitions and discharge planning Lifestyle No Sadiq Butt, RN documented as of this encounter Visit Diagnoses Not on filedocumented in this encounter Additional Health Concerns Assessment Noted Time PHQ-9 Depression Total Score: 0 09/27/19 22 11:40 AM LINE TESTER documented as of this encounter Care Teams Coupon Clerk Relationship Specialty Start Date End Date Tera Clancy DO [address] [place] [id number] PCP - General FAMILY PRACTICE 10/22/18 documented as of this encounter
--- OUTSIDE RECORDS SUMMARY | 2025-03-17 11:35 | XMS_ITS | Encounter Summary ---
Author Organization [facility] Address [address] [place] [address] Care Team Providers Care Water Ski Assembler Name Role Phone Tera Clancy DO Primary Care Provider + Encounter Details Date Type Department Care Team (Late st Contact Info) Description 01/22/2024 MyChart Message Enc [facility] Family & Internal Medicine [facility] [address] [place] [address] Tera Clancy DO [address] [place], [place] [id number] EMG lumbar-sacral nerve conduction test referral Social History Tobacco Use Types Packs/Day Years Used Date Smoking Tobacco: Never Smokeless Tobacco: Never Alcohol Use Standard Drinks/Week Comments Yes 0 (1 standard drink = 0.6 oz pur e alcohol) 3 times a week AUDIT-C Answer Date Recorded Frequency of Alcohol Consumption 2-4 times a thu10/29/2018 Average Number of Drinks Not on file 019 Frequency of Binge Drinking Not on file 10/09 PHQ-2 Answer Date Recorded Patient Health Questionnaire-2 Score 0 11/20/2023 Sex and Gender Information Value Date Recorded Sex Assigned at Male 11/17/2024 11:13 AM CDT 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 Dr. Deal can do an EMG if that's what is needed; if they're okay with doing it there, we can order it for there. * Shannon Ivey MA - 01/29/2024 11:17 AM CDT Please advise on referral. Records from Dr. Napoles are not scanned in. Have you seen the records in question? * Shannon Ivey MA - 01/29/2024 11:16 AM CDTFrom: Santiago Moreau To: Dr. Tera Clancy Sent: 01/22/2024 11:31 AM CDT Subject: EMG lumbar-sacral nerve conduction test referral Ambrosio met with Dolores TUBBS at [facility] in [place]. She referredhim to Dr. Raffy Rm for an EMG, he used to be in [place], but is now only in [place]. I've contacted them for a different referral several times. I've not been called back. Can Dr. Clancy refer him somewhere? Also, I'm curious, did Dr. Napoles's office send you medical notes from his visit? Ambrosio is still in constant pain, so anything you can do to help get this going is very appreciated. Thank you-Francine documented in this encounter Plan of Treatment Upcoming Encounters Date Type Department Care Team (Late st Contact Info) Description 03/23/2025 11:20 AM CDT Office Visit [facility] Medical [facility] Family & Internal Medicine - [address] [phone] Tera Clancy DO [address] [place] [phone] 05/15/2025 1:20 PM CDT Office Visit [facility] Multispecialty Care - [facility] [address] [facility], [address] [place] [address] Sugar Christine, VICE PRESIDENT [employer] [address] [facility] [address] [place] [address] documented as of this encounter Visit Diagnoses Not on filedocumented in this encounter Additional Health Concerns Assessment Noted Time PHQ-9 Depression Total Score: 0 09/27/19 22 11:40 AM LAP MACHINE OPERATOR documented as of this encounter Care Teams Water Ski Assembler Relationship Specialty Start Date End Date Tera Clancy DO [address] [place] [id number] PCP - General FAMILY PRACTICE 10/22/18 documented as of this encounter
--- OUTSIDE RECORDS SUMMARY | 2025-03-17 11:35 | XMS_ITS | Encounter Summary ---
Author Organization [facility] Address [address] [place] [address] Care Team Providers Care Recruiting Assistant Name Role Phone Tera Clancy DO Primary Care Provider + Encounter Details Date Type Department Care Team (Latest Contact Info) Description 07/25/2024 MyChart Message Enc [facility] Family & Internal Medicine [facility] [address] [place] [address] Tera Clancy DO [address] [place], [place] [id number] Instructions for newly prescribed mounjoro 2.5mg pen 1x a week. Social History Tobacco Use Types Packs/Day Years Used Date Smoking Tobacco: Never Smokeless Tobacco: Never Alcohol Use Standard Drinks/Week Comments Not Currently 0 (1 standard drink = 0.6 oz pur e alcohol) 3 times a week B1300 Health Literacy Answer Date Recor ded How often do you need to hav e someone help you when you read instructions, pamphlets, or other written material from your doctor or pharmacy? Never 05/10/2024 [facility] Utilities Answer Date Recorded In the past 12 months has e [employer], gas, oil, or water company threatened to shut off services in your [...] Recorded Patient Health Questionnaire-2 Score 0 11/20/2023 [facility] - Occupational Stress Questionnaire Answer Date Recorded [...] any time in the past 12 m [facility], were you homeless or living in a care home (including now)? No 05/10/2024 Sex and Gender Information Value Date Recorded Sex Assigned at Male 11/17/2024 11:13 AM CDT Legal Sex Male 9:55 AM CAMERA TECHNICIAN Gender Identity Male 11/17/2024 11:13 AM CDT [...] Date Author Status No 05/10/2024 4:17 PM Kalina Pool RN Active documented in this encounter Plan of Treatment Upcoming Encounters Date Type Department Care Team (Late st Contact Info) Description 03/23/2025 11:20 AM CDT Office Visit [facility] Family & Internal Medicine [address] [address] Tera Clancy DO [address] [place] [address] 05/15/2025 1:20 PM CDT Office Visit [facility] Multispecialty Care - [facility] [address] [facility], [address] [place] [address] Sugar Christine APRN 3 [facility] [address] [place] [address] documented as of this encounter Goals Goal Patient Goal Type Associated Problems Recent Progress Patient-Stated? Author Family - family caregiver with be involved in care transitions and discharge planning Lifestyle No Sadiq Butt RN documented as of this encounter Visit Diagnoses Not on filedocumented in this encounter Additional Health Concerns Assessment Noted Time PHQ-9 Depression Total Score: 0 09/27/19 22 11:40 AM CAMERA TECHNICIAN documented as of this encounter Care Teams Recruiting Assistant Relationship Specialty Start Date End Date Tera Clancy DO [address] [place] [address] PCP - General FAMILY PRACTICE 10/22/18 documented as of this encounter
--- OUTSIDE RECORDS SUMMARY | 2025-03-17 11:35 | XMS_ITS | Encounter Summary ---
Author Organization [facility] Address [address] [place] [address] Care Team Providers Care Electric Fork Operator Name Role Phone Tera Clancy DO Primary Care Provider + Encounter Details Date Type Department Care Team (Late st Contact Info) Description 03/04/2023 MyChart Message Enc [facility] Group [facility] [address] [place], [place] [phone] [place], [facility] Provider Air Quality Message Social History Tobacco Use Types Packs/Day Years [...] Date Recorded Patient Health Questionnaire-2 Score 0 09/11/2022 Sex and Gender Information Value Date Recorded Sex Assigned at Male 11/17/2024 11:13 AM CDT Legal Sex Male 9:55 AM FINE PATCHER Gender Identity Male 11/17/2024 11:13 AM CDT Sexual Orientation Not on file documented as of this encounter Plan of Treatment Upcoming Encounters Date Type Department Care Team (Late st Contact Info) Description 03/23/2025 11:20 AM CDT Office Visit [facility] Family & Internal Medicine [address] [phone] Tera Clancy DO [address] [place] [address] 05/15/2025 1:20 PM CDT Office Visit [facility] Multispecialty Care - [facility] 3 [facility], [address] [place] [address] Sugar Christine, GARTH [address] [facility] [address] [place] [address] documented as of this encounter Visit Diagnoses Not on filedocumented in this encounter Additional Health Concerns Assessment Noted Time PHQ-9 Depression Total Score: 0 09/27/19 22 11:40 AM FINE PATCHER documented as of this encounter Care Teams Electric Fork Operator Relationship Specialty Start Date End Date Tera Clancy DO [address] [place] [address] PCP - General FAMILY PRACTICE 10/22/18 documented as of this encounter
--- OUTSIDE RECORDS SUMMARY | 2025-03-17 11:35 | XMS_ITS | Encounter Summary ---
Author Organization [facility] Address [address] [place] [address] Care Team Providers Care Asphalt Plant Laborer Name Role Phone GeraldocarlaTera neal Allyssa GREWAL Primary Care Provider + Encounter Details Date Type Department Care Team (Late st Contact Info) Description 06/16/2024 [facility] Patient Accounts [address] [place] [address] [facility] Action Required Social History Tobacco Use Types Packs/Day Years [...] from your doctor or pharmacy? Never 05/10/2024 [facility] Utilities Answer Date Recorded In the past 12 months has [facility] [employer], oil, or water [employer] threatened to shut off services in your [...] Recorded Patient Health Questionnaire-2 Score 0 11/20/2023 [facility] - Occupational Stress [...] any time in the past 12 m [facility], were you homeless or living in a long term (including now)? No 05/10/2024 Sex and Gender Information Value Date Recorded Sex Assigned at Male 11/17/2024 11:13 AM CDT Legal Sex Male 9:55 AM GROCERY PACKER Gender Identity Male 11/17/2024 11:13 AM CDT [...] PM CDT Kalina Casas RN Active * Because of a physical, mental, or emotional condition, do you have difficulty doing errands alone such as visiting a doctor's office or shopping? Answer Date of Assessment Author Status No 05/10/2024 4:17 PM CDT Kalina Casas RN Active documented as of this encounter Mental Status * Because of a physical, mental, or emotional condition, do you have serious difficulty concentrating, remembering, or making decisions? Answer Entry Date Author Status No 05/10/2024 4:17 PM CDT Kalina Casas RN Active documented in this encounter Plan of Treatment Upcoming Encounters Date Type Department Care Team (Late st Contact Info) Description 03/23/2025 11:20 AM CDT Office Visit [facility] Family & Internal Medicine [address] [address] Tera Clancy, [address] [place] [phone] 05/15/2025 1:20 PM CDT Office Visit [facility] Multispecialty Care - [facility] 3 [facility], [address] [place] [address] Sugar Christine APRN 3 [facility] [address] [place] [address] documented as of this encounter Goals Goal Patient Goal Type Associated Problems Recent Progress Patient-Stated? Author Family - family caregiver with be involved in care transitions and discharge planning Lifestyle No Sadiq Butt, RN documented as of this encounter Visit Diagnoses Not on filedocumented in this encounter Additional Health Concerns Assessment Noted Time PHQ-9 Depression Total Score: 0 09/27/19 11:40 AM GROCERY PACKER documented as of this encounter Care Teams Asphalt Plant Laborer Relationship Specialty Start Date End Date Tera Clancy DO [address] [place] [address] PCP - General FAMILY PRACTICE 10/22/18 documented as of this encounter
--- OUTSIDE RECORDS SUMMARY | 2025-03-17 11:36 | XMS_ITS | Clinical Summary ---
Author Organization [facility] Address [address] [place] [address] Care Team Providers Care Billing Associate Name Role Phone Tera Clancy Primary Care Provider + Allergies Active Allergy Reactions Criticality Noted Date Comments Atorvastatin GI Upset,Leg Pain 10/04/2019 Medications vitamin D3, cholecalciferol, 1.25 MG (56658 UT) capsuleIndications :Low vitamin D level Take 1 capsule (50,000 Units total) by mouth weekly. 8 capsule 11/11/19 20 Active albuterol sulfate HFA 108 (90 Base) MCG/ACT inhalerIndications :Simple chronic bronchitis ([facility] HHS/HCC) Inhale 2 puffs into the lungs every 6 (six) hours as needed for Wheezing. 3 Inhaler 2 12/13/19 20 Active pseudoephedrine-gu aiFENesin ER (MUCINEX D) 60-600 MG TABLET SR 12 HR 12 hr tabletIndications: Simple chronic bronchitis ([facility] HHS/HCC) Take 1 tablet by mouth 2 (two) times daily as needed for Congestion. 90 tablet 1 12/13/19 20 Active Additional Information Patient not taking.Reported on 01/11/2025 triamcinolone acetonide (NASACORT) 55 MCG/ACT nasal inhaler 2 sprays by Each Nostril route daily. Active Turmeric 500 MG Cap Take 1 tablet by mouth daily. Active Glucosamine 500 MG Cap Take 1 tablet by mouth daily before lunch. Active mulitvitamin (THERA) tablet Take 1 tablet by mouth daily. Active cetirizine (ZYRTEC) 10 MG tabletIndications: Allergic rhinitis Take 1 tablet (10 mg total) by mouth daily. 90 tablet 1 08/04/20 22 Active montelukast (SINGULAIR) 10 MG tabletIndications: Allergic rhinitis, unspecified seasonality, unspecified trigger Take 1 tablet (10 mg total) by mouth nightly at bedtime. 90 tablet 3 09/11/19 23 Active ADVAIR DISKUS 250-50 MCG/ACT inhalerIndications :Moderate persistent asthma without complication (HHS/HCC) Inhale 1 puff into the lungs 2 (two) times daily. Rinse and spit after use 180 each 3 09/11/19 23 Active rosuvastatin (CRESTOR) 10 MG tabletIndications: Hyperlipidemia, unspecified hyperlipidemia type TAKE 1 TABLET NIGHTLY AT BEDTIME 90 tablet 1 08/10/20 23 Active omeprazole (PRILOSEC) 40 MG capsuleIndications :Laryngopharyngeal reflux TAKE 1 CAPSULE DAILY 90 capsule 3 12/04/19 24 Active BONE STIMULATOR, DME,Indications:Vesna mbar spine instability Wear 4 hours daily. Can break up into multiple sessions totaling 4 hours. 1 Device 04/04/20 24 Active acetaminophen (TYLENOL) 325 MG tablet Take 1 tablet (325 mg total) by mouth every 6 (six) hours as needed. Active Calcium 250 MG Cap Take 1 tablet by mouth daily. Active gabapentin (NEURONTIN) 100 MG capsule Take 1 capsule (100 mg total) by mouth 3 (three) times daily as needed. 08/18/20 24 Active Testosterone Enanthate (XYOSTED) 75 MG/0.5ML Solution Auto-injectorIndic ations:Hypogonadis m in male Inject 75 mg into the skin every 7 days. (0.5mL) 12 Pen 3 11/18/19 25 Active tirzepatide (MOUNJARO) 5 MG/0.5ML injectionIndicatio ns:Diabetes Mellitus Inject 5 mg into the skin every 7 days. Indications: Diabetes 6 mL 1 11/18/19 25 Active Active Problems Problem Noted Date Diagnosed Date Non compliance with medical treatment 01/11/2025 Hypogonadism in male 08/18/2024 Hemochromatosis 07/14/2024 Uncontrolled type 2 diabetes mellitus with hyperglycemia ([facility] HHS/HCC) 07/14/2024 S/P lumbar laminectomy 05/23/2024 S/P lumbar fusion 05/10/2024 Laryngopharyngeal reflux 07/25/2022 Severe obstructive sleep apnea 12/13/2019 Simple chronic bronchitis ([facility]) 04/0 03/2020 Elevated fasting glucose 10/04/2019 Hyperlipidemia, unspecified hyperlipidemia type 10/04/2019 Resolved Problems Problem Noted Date Diagnosed Date Resolved Date Closed fracture of sacrum an d coccyx ([facility]) 08/03/2023 08/03/2023 Overview (08/03/2023): h/o fracture; chronic pain. Closed fracture of zygomatic arch 08/03/2023 08/03/2023 Contact with and (suspected) exposure to other hazardous substances 08/03/2023 08/03/2023 Encounters Date Type Department Care Team Description 01/11/2025 1:20 PM CDT Office Visit [facility] - [address], [address] [place] [address] Sugar Christine APRN Follow Up (F/u xray) 01/11/2025 11:41 AM CDT - 01/11/2025 11:59 PM CDT Hospital Encounter [facility] [place] [address] Sugar Christine APRN Discharge Disposition: Home or Self Care (Routine Discharge) 01/11/2025 Travel 01/06/2025 Andres Message Enc [facility] [address] [facility], [address] [place] [phone] Andres, [facility] Provider Reminder of your upcoming appointment 01/06/2025 Telephone [facility] [address] [facility], [address] [place] [phone] Sugar Christine APRN Appointment Reminder from Last 3 Months Immunizations Immunization Administration Dates Next Due Afluria 36 MONTHS+ (Prefille d Syringe IIV4) 07/19/2019 Anthrax Vaccine 12/14/2006, 4,01/22/2000,1998,11/19/1998,06/13/1998,05/29/1998,0 05/15/1998 Flucelvax 6 Months+ (Prefill ed Syringe) 07/09/2017 Fluzone 6 Months+ Quad (0.5 mL Prefilled Syringe) 08/03/2023,07/25/2022 Hepatitis A (Havrix [address]) 07/29/2004,1996 Hepatitis B (Generic: Adult) 07/29/2004,04/30/19 97,05/10/1991 Influenza (FluMist) 07/07/2006 Influenza (Generic) 07/29/2024, 9,07/22/2005,2003,06/16/2003,07/22/2002 Influenza Adult (Generic) 07/19/2019,06/24/2018 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 Pneumococcal (Prevnar 20) 07/25/2022 Polio IPV (Ipol) 04/08/2004 Shingrix 12/01/2023,10/02/2023 Small Pox 07/29/2004 Td (TDVAX) 11/18/2004 Tdap (Adacel) 10/04/2019 Typhoid (Typhim ) 08/07/2004,05/24/2002 Family History Medical History Relation Comments Heart Disease Father Diabetes Mother Relation Status Comments Father Alive Mother Alive Social History Tobacco Use Types Packs/Day Years Used Date Smoking Tobacco: Never Smokeless Tobacco: Never Tobacco Cessation:Counseling Given: No Alcohol Use Standard Drinks/Week Comments Not Currently 0 (1 standard drink = 0.6 oz pur e alcohol) rare / stopped Apr 2024 B1300 Health Literacy Answer Date Recor ded How often do you need to hav e someone help you when you read instructions, pamphlets, or other written material from your doctor or pharmacy? Never 05/10/2024 [facility] Utilities Answer Date Recorded In the past 12 months has th e electric, gas, oil, or water company threatened to [...] Recorded Patient Health Questionnaire-2 Score 0 11/17/2024 [facility] - Occupational Stress [...] any time in the past 12 m [facility], were you homeless or living in a snf (including now)? No 05/10/2024 Sex and Gender Information Value Date Recorded Sex Assigned at Male 11/17/2024 11:13 AM CDT Legal Sex Male 9:55 AM ACCOUNTING TUTOR Gender Identity Male 11/17/2024 11:13 AM CDT Sexual Orientation Not on file Last Filed Vital Signs Vital Sign Reading Time Taken Comments Blood Pressure 75/55 01/11/2025 1:12 PM CDT Pulse 76 11/17/2024 11:15 AM CDT Temperature 36.7 C (98.1 F) 01/11/2025 1:12 PM CDT Respiratory Rate 16 11/17/2024 11:1 5 AM CDT Oxygen Saturation 97% 11/17/2024 11: 15 AM CDT Inhaled Oxygen Concentration - - Weight 126.7 kg (279 lb 4.8 oz) 01/11/2025 1:12 PM CDT Height 193 cm (6' 4) 01/11/2025 1:12 PM CDT Body Mass Index 34 01/11/2025 1:12 PM CDT Plan of Treatment Upcoming Encounters Date Type Department Care Team (Late st Contact Info) Description 03/23/2025 11:20 AM CDT Office Visit [facility] Family & Internal Medicine - [address] [address] Tera Clancy, [address] [place] [address] 05/15/2025 1:20 PM CDT Office Visit [facility] Multispecialty Care - [address], [address] [place] [address] Sugar Christine, COPYING MACHINE REPAIRER [address] [place] [address] Health Maintenance Due Date Last Done Comments Diabetes: Retinopathy Eye Exam 1981 Annual Physical 10/04/2020 10/04/2019 RSV Immunization or 60+ Years (1 - Risk 60-74 years 1-dose series) 2023 Hemoglobin A1C 05/20/2025 11/17/2024, 08/07, 06/27/2024, Additional history exists Kidney Health Evaluation 07/14/2025 07/14/2024 Lipid Panel 07/14/2025 07/14/2024, 07/09, 06/10/2021, Additional history exists Colorectal Cancer Screening Colonoscopy (10 Years) 05/29/2027 05/29/2022 DTaP, Tdap and Td Vaccines (2 - Td or Tdap) 10/04/2029 10/04/2019, 11/18/2004 COVID-19 Vaccine (3 - season) 2112 01/29/2021, 01/02/2021 Postponed from 05/08/2024 (Going to Outside Clinic) Hepatitis C Completed 06/06/2022, 11/03/2019 Pneumococcal Vaccine: 50+ Years Completed 07/25/2022 Zoster Vaccines Completed 12/01/2023, 10/02/2023 PHQ-2 (Physician [place]) Completed 11/17/2024 Meningococcal B Vaccine Aged Out No l onger eligible based on patient's age to complete this topic Meningococcal Vaccine Aged Out No kiki warren eligible based on patient's age to complete this topic RSV Immunizations Under 20 Months Aged Out No longer eligible based on patient's age to complete this topic Goals Goal Patient Goal Type Associated Problems Recent Progress Patient-Stated? Author Family - family caregiver with be involved in care transitions and discharge planning Lifestyle No Sadiq Butt, RN Medical Devices Implanted Type Area Towboat Captain Device Identifier Shelf Expiration Date Model / Serial / Lot Putty Stewart Matrix Dbm/Dbf Bone 3ml - [id number] Implanted:Qty : 1 on 05/10/2024 by Armando Cristina MD at [facility] Bone Spine Lumbar [employer] [id number] 07/07/2025 [id number] / [id number] / Graft Infuse Bone Small - [id number] Implanted:Qty : 1 on 05/10/2024 by Armando Cristina MD at [facility] Bone N/A: Spine Lumbar [employer] [id number] 11/05/2025 [id number] / / [id number] Filler Bone 5cc 12.5cc Calcium Sulfate Stimulan Rapid Cure - [id number] Implanted:Qty : 1 on 05/10/2024 by Armando Cristina MD at [facility] Bone N/A: Spine Lumbar [employer] [id number] 04/06/2026 [id number] / / [id number] Description:*Mixed with 1 gr am of Vancomycin powder Catalyft Pl Expandable Interbody System Interbody Cage Implanted:Qty : 1 on 05/10/2024 by Armando Cristina MD at [facility] Cage N/A: Spine Lumbar [employer] [id number] 03/21/2032 [id number] / / [id number] 4.75 X 45mm Mert Implanted:Qty : 1 on 05/10/2024 by Armando Cristina MD at [facility] Mert N/A: Spine Lumbar [employer] [id number] / / 6.5 X 35 Mm Screws Implanted:Qty : 1 on 05/10/2024 by Armando Cristina MD at [facility] Screw N/A: Spine Lumbar [employer] . [id number] / / . 6.5 X 40 Mm Screws Implanted:Qty : 1 on 05/10/2024 by Armando Cristina MD at [facility] Screw N/A: Spine Lumbar [employer] . [id number] / / . 5.5 X 45 Mm Screws Implanted:Qty : 1 on 05/10/2024 by Armando Cristina MD at [facility] Screw N/A: Spine Lumbar [employer] . [id number] / / . 7.5 X 40 Mm Screws Implanted:Qty : 1 on 05/10/2024 by Armando Cristina MD at [facility] Screw N/A: Spine Lumbar [employer] . [id number] / / . Voyager Set Screws Implanted:Qty : 4 on 05/10/2024 by Armando Cristina MD at [facility] N/A: Spine Lumbar [employer] . [id number] / / . Procedures Procedure Name Priority Date/Time Associated Diagnosis Comments XR LUMB SPINE AP+LAT ONLY Routine 01/11/2025 12:06 PM CDT S/P lumbar fusion HEMOGLOBIN, GLYCOSYLATED Routine 11/17/2024 Type 2 diabetes mellitus without complication, without long-term current use of insulin ([facility]) LIPID PANEL Routine 07/14/2024 11:57 AM ACCOUNTING TUTOR Annual physical exam Screening for lipid disorders Screening for endocrine, metabolic and immunity disorder HEP C SCANNED ORDERS Routine 06/06/2022 COLONOSCOPY/EGD GENERIC (SCAN ORDER) 05/29/2022 from Last 3 Months or Most Recently Relevant to Health Maintenance Results * XR LUMB SPINE AP+LAT ONLY (01/11/2025 12:06 PM CDT) Anatomical Region Laterality Modality Spine Radiographic Tiara ging 01/12/2025 3:52 AM CDT Impressions 01/12/2025 3:57 AM CDT IMPRESSION: 1. Postsurgical changes of L4-L5 fusion with intact hardware. 2. Multilevel lumbar spondylosis. Referred By: Interpreted By: Nacho Pisano MD, 01/12/2025 3:52 AM Narrative 01/12/2025 3:57 AM CDT [address] [address] Examination: XR LUMB SPINE AP+LAT ONLY Exam time: 01/11/2025 12:02 PM Clinical history: SP LUMBAR FUSION Comparison: Radiographs July 20, 2024. Technique: 2 views of the lumbar spine. Findings: Postsurgical changes of L4-L5 fusion with intact hardware. Disc spacer appears intact. Stepwise grade 1 retrolisthesis of L1 on L2, L2 on L3 and L3 on L4 is redemonstrated and similar to prior. Vertebral body heights and disc spaces appear similar to prior. Small marginal osteophytes again noted at multiple levels. No fracture or destructive bone process. Procedure Note Nacho Pisano MD - 01/12/[address] [address] Examination: XR LUMB SPINE AP+LAT ONLY Exam time: 01/11/2025 12:02 PM Clinical history: SP LUMBAR FUSION Comparison: Radiographs July 20, 2024. Technique: 2 views of the lumbar spine. Findings: Postsurgical changes of L4-L5 fusion with intact hardware. Disc spacerappears intact. Stepwise grade 1 retrolisthesis of L1 on L2, L2 on L3 andL3 on L4 is redemonstrated and similar to prior. Vertebral body heightsand disc spaces appear similar to prior. Small marginal osteophytes againnoted at multiple levels. No fracture or destructive bone process. IMPRESSION: 1. Postsurgical changes of L4-L5 fusion with intact hardware. 2. Multilevel lumbar spondylosis. Referred By: Interpreted By: Nacho Pisano MD, 01/12/2025 3:52 AM us Sugar Christine COPYING MACHINE REPAIRER GENERAL IMAGING Final Resu lt * HEMOGLOBIN, GLYCOSYLATED (11/17/2024) HGB A1C 5.6 % [facility] 11/17/2024 Tera Clancy DO LABORATORY Final Re sult Performing Organization Address City/[facility]/ZIP Co de Phone Number [facility] [address] [place] [address], [place] * (ABNORMAL) LIPID PANEL (07/14/2024 11:57 AM ACCOUNTING TUTOR) CHOLESTEROL 163 <200 MG/DL 07/14/2024 7:51 PM ACCOUNTING TUTOR [facility] TRIGLYCERIDES 127 <150 MG/DL 07/14/2024 7:51 PM ACCOUNTING TUTOR [facility] HDL 39(L) >40 MG/DL 07/14/2024 7:51 PM ACCOUNTING TUTOR [facility] LDL-C 99 <100 MG/DL 07/14/2024 7:51 PM ACCOUNTING TUTOR [facility] VLDL CALCULATION 25 5 - 28 MG/DL 07/14/2024 7:51 PM ACCOUNTING TUTOR [facility] CHOL/HDL RATIO 4.2(H) 0.0 - 4.0 07/14/2024 7:51 PM ACCOUNTING TUTOR [facility] LDL/HDL 2.5(H) 0.41 - 2.13 07/14/2024 7:51 PM ACCOUNTING TUTOR [facility] NON HDL CHOLESTEROL 124 <140 MG/DL 07/14/2024 7:51 PM ACCOUNTING TUTOR [facility] 07/14/2024 11:5 7 AM ACCOUNTING TUTOR Tera Clancy DO LABORATORY Final Re sult [facility] [address] [place] [address], [place] [phone] * HEP C SCANNED ORDERS (06/06/2022) us Screen Fix [facility] Scanned SCANNING Final Resu lt [facility] ONBASE * COLONOSCOPY/EGD GENERIC (05/29/2022) 05/29/2022 us Screen Fix [facility] Scanned SCANNING Final Resu lt from Last 3 Months or Most Recently Relevant to Health Maintenance Insurance Advance Directives * Full Code (Latest Code Status on File) Date Activated Date Inactivated Comments 05/10/2024 4:21 PM 05/13/2024 11:51 AM Care Teams Billing Associate Relationship Specialty Start Date End Date Tera Clancy DO [address] [place], [place] [phone] PCP - General FAMILY PRACTICE 10/22/18
--- OUTSIDE RECORDS SUMMARY | 2025-03-17 11:36 | XMS_ITS | Encounter Summary ---
Author Name [facility] Organization [facility] [place] [facility] [place] Address [address] [place] [address] Care Team Providers Care Religion Instructor Name Role Phone SPIKE NGUYEN Primary Care [...] Wayne's Name Patient's Relationship to Policy Wayne [facility] 2024 [facility] Sep 07, 2024 [facility] [id number] ELDA COBIAN PATIENT Selected Encounter This section includes the information on record at [place] for the Encounter. Date/Time Encounter Type Encounter Description Reason Provider Source January 26, 2025 01:30 PM TELEHEALTH FACILITY FEE PRIMARY CARE/MEDICINE ICD-10-CM J45.909 Unspecified asthma, uncomplicated SPIKE NGUYEN IHE Encounter Template Text not used by VA Assessments - Encounter Diagnoses This section includes the primary and secondary diagnoses documented for the Encounter. Date/Time Primary/Secondary Diagnosis Diagnosis Name Provider Source January 26, 2025 02:14 PM PRIMARY Unspecified asthma, [facility]complicated [facility] January 26, 2025 02:14 PM SECONDARY Gastro-esophageal reflux disease without esophagitis WENDY,SPIKE M [facility] January 26, 2025 02:14 PM SECONDARY Hyperlipidemia, unspecified SPIKE NGUYEN [facility] Lab Results: +/- 30 days of the encounter This section includes the Chemistry and Hematology Lab Results on record with VA for the patient. Radiology Reports and Pathology Reports are provided separately, in subsequent sections. Lab Results This section contains the Chemistry/Hematology Results that were resulted 30 days before or 30 daysafter the date of the Encounter. Date/Time Source Result Type Result - Unit Interpretation Reference Range Specimen Type Comment January 26, 2025 01:53 PM [facility] GLUCOSE,BLOOD-poct (STL) BLOOD Specimen Type: BLOOD Comment: Test Performed by: [id number] Meter #: [id number] Ordering Provider: SPIKE NGUYEN Report Released Date/Time: January 26, 2025 04:55 PM Reporting Lab: [facility] [address] [facility] [id number] Performing Lab: [facility] [id number] [facility] [id number] GLUCOSE,BLOOD-poct (STL) 84 mg/dL 72-99 Vital Signs: All taken on the encounter date This section contains inpatient and outpatient Vital Signs collected on the date of the Encounter. Date/Time Temperature Pulse Blood Pressure Respiratory Rate SP02 Pain Height Weight Body Mass Index Source January 26, 2025 01:50 PM 97.7 82 104/68 20 97 4 76 280 34 [facility] Social History: Smoking Status (Most current) and Tobacco Use (All prior to encounter date) This section includes the most current, and the historical, smoking and tobacco- related health factors from the [place] facility where the Encounter took place. Current Smoking Status This section includes the most current smoking, or tobacco-related health factor, from the [place] facility where the Encounter took place. Date/Time Current Smoking Status Comment Facil ity January 26, 2025 01:30 PM VA-TOBACCO NEVER U SED CIGARETTES [facility] Tobacco Use History This section includes a history of the smoking, or tobacco-related health factors, that were collected on or before the date of the Encounter. The data comes from the [place] facility where the Encounter took place. Date/Time Smoking Status/Tobacco Use Comment F acility January 26, 2025 01:30 PM VA-TOBACCO NEVER U SED OTHER TYPE [facility] Sep 25, 2023 03:30 PM VA-TOBACCO NEVER USED [facility] Encounter Notes: All associated encounter notes This section contains the clinical notes associated to the Encounter. Date/Time Encounter Note(s) Provider Source January 26, 2025 02:09 PM PRIMARY CARE NOTE: LOCAL TITLE: PRIMARY CARE PROVIDER ESTABLISHED VISIT ST STANDARD TITLE: PRIMARY CARE NOTE DATE OF NOTE: JANUARY 26, 2025@14:09 ENTRY DATE: JANUARY 26, 2025@14:10 AUTHOR: SPIKE NGUYEN COSIGNER: URGENCY: STATUS: COMPLETED Visit conducted by synchronous video telehealth; patient verbal consent obtained. Location and emergency point of contact and/or number confirmed Franklin was notified of right to decline Telehealth services and eligibility for other options. consented to be seen via Video into the Clinic (CVT). Verified Patient's location and contact information for this appointment: [address] [address] A survey of the environment was conducted and all participants identified in the room and the exam door is closed. Providers: Take measures to minimize the noise outside the clinic room by ensuring the room's door is closed, and a sign is posted on the door to indicate a telehealth visit is in session. Workstation: [facility] [id number]. [facility] tele[facility]icine [facility]. Franklin's identity was confirmed with two (2) forms of identification: Full Name, full SSN, or Date of . Franklin education provided and verbal consent requested to conduct Clinical Video Telehealth for this encounter and subsequent encounters. The Franklin was given the option to be seen using an in-person face to face visit if desired. Franklin informed this visit is confidential, secure and will not be recorded. Veterans questions answered. Franklin verbalized understanding and consents to be seen today using Clinical Video Telehealth. This visit was conducted today by: _x_ CVT (audio/visual) Connection Patient is 59 and WHITE Self Identified Gender - Man Reason for visit:Scheduled follow-up Chief Complaint: 6 month f/u History of Present Illness: Reports pain in the right foot, usually will last 5-6 days, he thought it was gout, thinks its plantar fasciitis, had a lot of injuries to his ankles and feet, if he steps with the ball of his foot he has issues, had ct scan Jul last year, there were 3 old fx, results showed nothing new, he takes Ibuprofen. Had back surgery 05/2024, TLIF at [facility] per Dr. Mauricio, f/u appt last week was told everything is looking good, going to have a CT in May to see if the bone is grafted, taking 1200mg Calcium. Reports he has not had pain med since Oct 2024. Says he was put on Metformin and Mounjaro 5mg weekly, BS went up to 500 and threw him into diabetes. Since on Mounjaro he has no appetite. pvt pcp Dr. Clancy in [place] Problem List: 1) Asthma ([facility] [id number]) 2) GERD - Gastro-Esophageal Reflux Disease ([facility] [id number]) 3) Hyperlipidemia ([facility] [id number]) 4) Chronic rhinitis 5) Low back pain 6) Vitamin D Deficiency ([facility] [id number]) 7) Exposure to potentially hazardous substance 8) Lumbar radiculopathy Immunization: ADMINISTERED Immunization Series Date Facility Reaction Info COVID-19 (No Chains), MRNA, LNP-S, * 2 01/29/2021 [facility] COVID-19 (No Chains), MRNA, LNP-S, * 1 01/02/2021 [facility] INFLUENZA, MDCK, QUADRIVALENT, PF 1 07/09/2017 [facility] INFLUENZA, SPLIT VIRUS, QUADRIVA* 5 08/03/2023 [facility] INFLUENZA, SPLIT VIRUS, QUADRIVA* 4 07/25/2022 [facility] INFLUENZA, SPLIT VIRUS, QUADRIVA* 2 06/24/2018 [facility] INFLUENZA, SPLIT VIRUS, QUADRIVA* 3 07/19/2019 [facility] INFLUENZA, SPLIT VIRUS, TRIVALEN* C 07/29/2024 [facility] PNEUMOCOCCAL CONJUGATE PCV20, PO* 1 07/25/2022 [facility] TDAP 1 10/04/2019 [facility] ZOSTER RECOMBINANT 2 12/01/2023 [facility] ZOSTER RECOMBINANT 1 10/02/2023 [facility] CONTRAINDICATED No data available REFUSED ======= Immunization Date Facility Info COVID-19 (MODERNA), MRNA, LNP-S,* 01/26/2025 [facility] <I> COVID-19 (MODERNA), MRNA, LNP-S,* 07/29/2024 [facility] <I> COVID-19 (MODERNA), MRNA, LNP-S,* 04/18/2024 [facility] <I> COVID-19 (NOVAVAX), SUBUNIT, RS-* 01/26/2025 [facility] <I> COVID-19 (PFIZER), MRNA, LNP-S, * 01/26/2025 [facility] <I> COVID-19 (PFIZER), MRNA, LNP-S, * 07/29/2024 [facility] <I> COVID-19 (PFIZER), MRNA, LNP-S, * 04/18/2024 [facility] <I> <I> See the Detailed Immunizations Health Summary Component[DIM] for Additional Information * Value is truncated; see the Detailed Immunizations Health Summary Component[DIM] for complete text Social History: , lives with his and 11 y/o daughter, never smoked, no alcohol since 04/2024, 22 years in [employer], completely retired 2017 Medication Review: The essential med list for review which includes the patient's active VA prescriptions and if applicable, remote VA prescriptions, non-VA prescriptions, and discontinued VA prescriptions within the last 90 days and known allergies including local and remote allergies have been reviewed. Allergies:Patient has answered NKA Active and Recently Outpatient Medications (excluding Supplies): Active Outpatient Medications Status 1) ALBUTEROL 90MCG (CFC-F) 200D ORAL INHL INHALE 2 PUFFS ORAL ACTIVE use INHALATION FOUR TIMES A DAY NEEDED SHAKE WELL. RINSE MOUTHPIECE FREQUENTLY TO PREVENT CLOGGING. Indication: FOR ASTHMA 2) CETIRIZINE HCL 10MG TAB TAKE ONE TABLET BY MOUTH ONCE A DAY ACTIVE Indication: FOR ALLERGY SYMPTOMS 3) CHOLECALCIF 25MCG (D3-1,000UNIT) TAB TAKE ONE TABLET BY ACTIVE MOUTH ONCE A DAY Indication: FOR VITAMIN D DEFICIENCY 4) FLUTICAS 250/SALMETEROL 50 INHL DISK 60 INHALE 1 INHALATION ACTIVE use ORAL INHALATION TWICE A DAY (OPEN DISKUS; CLICK ONLY ONCE; MAY INHALE TWICE TO COMPLETE DOSE; CLOSE WHEN FINISHED) RINSE MOUTH AND SPIT AFTER EACH USE. Indication: FOR ASTHMA 5) GABAPENTIN 300MG CAP TAKE ONE CAPSULE BY MOUTH AT BEDTIME ACTIVE not taking Indication: FOR NERVE PAIN 6) METFORMIN HCL 500MG 24HR SA TAB TAKE TWO TABLETS BY MOUTH ACTIVE not taking TWICE A DAY TAKE WITH FOOD. AVOID ALCOHOL. DISCONTINUE BEFORE GETTING XRAY DYE. Indication: FOR DIABETES 7) MONTELUKAST NA 10MG TAB TAKE ONE TABLET BY MOUTH EVERY ACTIVE taking EVENING Indication: FOR ASTHMA 8) OMEPRAZOLE 40MG EC CAP TAKE ONE CAPSULE BY MOUTH EVERY ACTIVE taking MORNING BEFORE A MEAL TAKE 30 MINUTES PRIOR TO FOOD. Indication: FOR GASTROESOPHAGEAL REFLUX DISEASE 9) ROSUVASTATIN CA 20MG TAB TAKE ONE-HALF TABLET BY MOUTH EVERY ACTIVE taking EVENING Indication: FOR HIGH CHOLESTEROL Active Non-VA Medications Status 1) Non-VA ASPIRIN 81MG EC TAB 81MG BY MOUTH ONCE A DAY ACTIVE 2) Non-VA CURCUMA CAP/TAB 1 CAP/TAB BY MOUTH ONCE A DAY ACTIVE 3) Non-VA NON-FORMULARY TAB GUAIFENESIN 1200MG / ACTIVE PSEUDOEPHEDRINE 60MG BY MOUTH ONCE A DAY 4) Non-VA ROSUVASTATIN CA 20MG TAB 10MG BY MOUTH EVERY EVENING ACTIVE Indication: FOR HIGH CHOLESTEROL 5) Non-VA TESTOSTERONE ENAN 75MG/0.5ML PEN 0.5ML 1 ML UNDER THE ACTIVE SKIN EVERY WEEK 6) Non-VA TRIAMCINOLONE ACET 55MCG 120D LA NENA SPRAY 2 PUFFS ACTIVE NOSTRIL(S) ONCE A DAY 15 Total Medications Review of Systems: GENERAL: no fevers, chills, night sweats, fatigue CV: no cp, gunter, edema, claudication or palpitation RESP: no sob, cough, wheezes or hemoptysis MUS: left foot pain Neuro: No headaches, lightheadedness, dizziness, numbness. No weakness or gait difficulty. Psych: Mood has been good Physical Exam VITALS (most recent, as listed in the electronic record): B/P: 104/68 (01/26/2025 13:50) Pulse: 82 (01/26/2025 13:50) Temperature: 97.7 F [36.5 C] (01/26/2025 13:50) Weight: 280 lb [127.01 kg] (01/26/2025 13:50) Height: 76 in [193.0 cm] (01/26/2025 13:50) BMI: 34.2 Pain: 4 (01/26/2025 13:50) (0-10 scale) General appearance: cooperative, well-nourished, in no distress HEENT: sclera/conjunctiva clear Cardiovascular: RRR, no murmur, no gallop Respiratory: CTA, right upper lobe slightly diminished ABD/GI: obese, bs + M/S: normal gait and posture Psych: normal affect Neuro: Alert and oriented x 3 Skin: normal color and texture Data Review: HGA1C 10.5 H % 07/29/2024 13:36 Lipid Panel: TRIGLYCERIDE 113 mg/dL 07/29/2024 13:36 CHOLESTEROL 157 mg/dL 07/29/2024 13:36 HDL(New) 34 L mg/dL 07/29/2024 13:36 CALCULATED LDL 100 mg/dL 07/29/2024 13:36 CMP: SODIUM 138 mEq/L 07/29/2024 13:36 POTASSIUM 4.4 mEq/L 07/29/2024 13:36 CHLORIDE 103 mEq/L 07/29/2024 13:36 UREA NITROGEN 8.7 L mg/dL 07/29/2024 13:36 CREATININE 0.90 mg/dL 07/29/2024 13:36 CALCIUM 10.1 mg/dL 07/29/2024 13:36 PROTEIN 8.3 g/dL 07/29/2024 13:36 ALBUMIN 4.3 g/dL 07/29/2024 13:36 ALKALINE PHOSPHATASE 83 U/L 07/29/2024 13:36 ALT/SGPT 17 U/L 07/29/2024 13:36 AST/SGOT 25 U/L 07/29/2024 13:36 TOTAL BILIRUBIN 0.5 mg/dL 07/29/2024 13:36 CARBON DIOXIDE 29 mEq/L 07/29/2024 13:36 GLUCOSE 133 H mg/dL 07/29/2024 13:36 EGFR (CKD-EPI 2020) 97.2 07/29/2024 13:36 CBC: WBC 6.0 10*3/uL 07/29/2024 13:36 RBC 5.10 10*6/uL 07/29/2024 13:36 HGB 15.6 g/dL 07/29/2024 13:36 HCT 46.4 % 07/29/2024 13:36 MCV 91.0 fL 07/29/2024 13:36 MCH 30.6 pg 07/29/2024 13:36 MCHC 33.6 g/dL 07/29/2024 13:36 RDW 12.0 % 07/29/2024 13:36 PLT 334 10*3/uL 07/29/2024 13:36 MPV 10.8 fL 07/29/2024 13:36 NEUTROPHILS, AUTO % 52 % 07/29/2024 13:36 LYMPHOCYTES, AUTO % 38 % 07/29/2024 13:36 MONOCYTES, AUTO % 7 % 07/29/2024 13:36 EOSINOPHILS, AUTO % 2 % 07/29/2024 13:36 BASOPHILS, AUTO % 0 % 07/29/2024 13:36 NEUTROPHILS, ABSOLUTE 3.11 10*3/uL 07/29/2024 13:36 LYMPHOCYTES, ABSOLUTE 2.28 10*3/uL 07/29/2024 13:36 MONOCYTES, ABSOLUTE 0.42 10*3/uL 07/29/2024 13:36 EOSINOPHILS, ABSOLUTE 0.13 10*3/uL 07/29/2024 13:36 BASOPHILS, ABSOLUTE 0.02 10*3/uL 07/29/2024 13:36 PSA: PROST. SPECIFIC AG.(PB-STL) 2.034 ng/mL 07/29/2024 13:36 TSH: TSH 1.245 uIU/mL 07/29/2024 13:36 UA: No URINALYSIS EO data found Vitamin D: VITAMIN D, 25-HYDROXY 45.8 ng/mL 07/29/2024 13:36 Micral/Creat Profile: No data available Result: Acceptable Follow-up Action: Data results reviewed with patient and/or caregiver. Assessment/Plan: # Asthma - stable, continues Wixela only once daily and Albuterol as needed # GERD - controlled, continues Omeprazole 40mg daily # Hyperlipidemia - ldl 100(07/29/2024), continues Rosuvastatin # Right foot pain - taking Ibuprofen, encouraged Podiatry for eval and possible inserts/braces # Low back pain s/p TLIF per nonva neurosurgery, no longer takes Gabapentin # Type 2 DM - A1C 5.6 11/2024 per pt, Metformin d/c'd per pvt pcp, now taking Mounjaro 5mg weekly - continue low carb/sweet diet and exercise # HM - labs per pvt pcp 11/2024 states wnl, labs at next f/u patients decision; CRS, GI Dr. Alarcon in [place], last colonoscopy was 3 years ago, had a couple polyps repeat 5 years recommended; teleretinal eye exam today. RTC: 6 months and prn Time spent on date of visit including face to face time, data review, and chartin minutes CLINICAL REMINDERS COMPLETED Alcohol Use Screen (AUDIT-C) - V: Alcohol Screen: SCREEN FOR ALCOHOL (AUDIT-C) An alcohol screening test (AUDIT-C) was negative (score=2). 1. How often did you have a drink containing alcohol in the past year? Consider a drink to be a 12 ounce can or bottle of regular beer, 8 ounces of malt liquor, a 5 ounce glass of table wine, or a 1.5 ounce shot of liquor (like scotch, gin, or vodka). Two to four times a month 2. How many drinks containing alcohol did you have on a typical day when you were drinking in the past year? One or two drinks 3. How often did you have six or more drinks on one occasion in the past year? Never Avg Risk Colorectal Cancer Screen - L,N,P,PH: AVERAGE RISK colorectal cancer screening is due based on information available to this clinical reminder Patient has arranged or is choosing to arrange this care independent of and without assistance from this [place]. /ted/ SPIKE NGUYEN MSN AGNP-C [facility]/CCC NURSE PRACTITIONER Signed: 01/26/2025 20:22 SPIKE NGUYEN [facility] January 26, 2025 01:54 PM NURSING NOTE: LOCAL TITLE: V15 PACT FACE TO FACE NOTE ST STANDARD TITLE: NURSING NOTE DATE OF NOTE: JANUARY 26, 2025@13:54 ENTRY DATE: JANUARY 26, 2025@13:54:10 AUTHOR: NORBERTO RAMON EXP COSIGNER: URGENCY: STATUS: COMPLETED Provider Visit: Patient Identifiers : Full Name Date of Reason for visit: Established Follow-Up 59 year old male. Pt is alert and ambulatory. Pt is able to make his needs known and has complaints of pain. Mode of Arrival: Ambulatory Allergy Review: ALLERGIES/ADVERSE REACTIONS - NONE FOUND Allergy list reviewed and remains current. Recent Vital Signs: Temperature: 97.7 F [36.5 C] (01/26/2025 13:50) Pulse: 82 (01/26/2025 13:50) Respiration: 20 (01/26/2025 13:50) B/P: 104/68 (01/26/2025 13:50) Pain: 4 (01/26/2025 13:50) Wt.: 280 lb. [127.01 kg] (01/26/2025 13:50) Ht: 76 in [193.0 cm] (01/26/2025 13:50) BMI: 34.2 POX: 97% (01/26/2025 13:50) Blood sugar glucometer readin PERSONAL HEALTH INVENTORY Notes: No data available for PHI note titles PERSONAL HEALTH INVENTORY - MAP: No data available for PHI MAP What matters most to you in your life right now? Franklin's Response: family WHOLE HEALTH SHARED GOALS: PERSONAL HEALTH PLAN - SHARED GOALS: No data available for: Php Shared Goals SHARED GOALS pain control Would you like to discuss any personal problem, family problem, alcohol use, drug use, or a mental or emotional illness? No My [facility] ([facility]), please select appointment type: Face to face: Yes-Do you have an upgraded (Premium) account which gives you the added benefit of Secure Messaging with your Primary Care Provider and refilling your prescriptions online? Contact provided Primary Care phone number and encouraged to call if any questions or concerns. Review that after hours nurse line [phone] and emergency room are available 30/03 for patient use. Contact verbalized good understanding. Suicide Screen - V: C-SSRS Screening Juda Suicide Severity Rating Scale (C-SSRS) screener 1. Over the past month, have you wished you were or wished you could go to sleep and not wake up? No 2. Over the past month, have you had any actual thoughts of killing yourself? No 3. Over the past month, have you been thinking about how you might do this? Response not required due to responses to other questions. 4. Over the past month, have you had these thoughts and had some intention of acting on them? Response not required due to responses to other questions. 5. Over the past month, have you started to work out or worked out the details of how to kill yourself? Response not required due to responses to other questions. 6. If yes, at any time in the past month did you intend to carry out this plan? Response not required due to responses to other questions. 7. In your lifetime, have you ever done anything, started to do anything, or prepared to do anything to end your life (for example, collected pills, obtained a gun, gave away valuables, went to the roof but didn't jump)? No 8. If YES, was this within the past 3 months? Response not required due to responses to other questions. Sexual Orientation - CP,L,N,P,PH,PS,S,U: The patient thinks of their sexual orientation as: Straight or Heterosexual COVID-19 Immunization-L,N,P,PH,U: Refused Moderna Monovalent COVID-19 vaccine Immunization: COVID-19 (MODERNA), MRNA, LNP-S, PF, 50 MCG/0.5 ML (AGES 12+ YEARS) Refusal Reason: PATIENT DECISION Patient refuses all immunization(s) in the COVID-19 group Date Documented: 01/26/25 13:58 Refused Pfizer Monovalent COVID-19 vaccine Immunization: COVID-19 (PFIZER), MRNA, LNP-S, PF, EVARISTO-SUCROSE, 30 MCG/0.3 ML (AGES 12+ YEARS) Refusal Reason: PATIENT DECISION Patient refuses all immunization(s) in the COVID-19 group Date Documented: 01/26/25 13:58 Refused Novavax COVID-19 vaccine Immunization: COVID-19 (NOVAVAX), SUBUNIT, RS-NANOPARTICLE, ADJUVANTED, PF, 5 MCG/0.5 ML (AGES 12+ YEARS) Refusal Reason: PATIENT DECISION Patient refuses all immunization(s) in the COVID-19 group Date Documented: 01/26/25 13:58 Homelessness/Food Insecurity Screen - DI,L,N,P,PH,PS,S,U: In the past 2 months, have you been living in stable housing that you own, rent, or stay in as part of a household? Yes - Living in stable housing. Are you worried or concerned that in the next 2 months you may NOT have stable housing that you own, rent, or stay in as part of a household? No - Not worried about housing near future The Franklin reports the following: Within the past 12 months, you worried whether your food would run out before you got money to buy more. Never true Within the past 12 months, the food you bought just didn't last and you didn't have money to get more. Never true Tobacco Use Screening - AT,DE,L,M,N,P,PH,PS,RT,S,U: The patient has never smoked cigarettes. The patient has never used other types of tobacco. Depression Screening - V: Perform PHQ-2 A PHQ-2 screen was performed. The score was 0 which is a negative screen for depression. Over the past two weeks, how often have you been bothered by the following problems? 1. Little interest or pleasure in doing things Not at all 2. Feeling down, depressed, or hopeless Not at all /ted/ NORBERTO RAMON Licensed Practical Nurse Signed: 01/26/2025 14:19 NORBERTO RAMON [facility]
--- OUTSIDE RECORDS SUMMARY | 2025-03-17 11:36 | XMS_ITS | Encounter Summary ---
Author Organization [facility] Address [address] [place] [address] Care Team Providers Care Oven Roaster Name Role Phone Tera Clancy DO Primary Care Provider + Encounter Details Date Type Department Care Team (Late st Contact Info) Description 01/30/2022 MyChart Message Enc [facility] Family & Internal Medicine [facility] [address] [place] [address] Tera Clancy DO [address] [place], [place] [phone] Oral appliance for sleep apnea Social History Tobacco Use Types Packs/Day Years [...] on file 10/09 PHQ-2 Answer Date Recorded PHQ-2 Score - If the patient scores above 3, please move on to questions 3-9 0 09/27/2021 Sex and Gender Information Value Date Recorded Sex Assigned at Male 11/17/2024 11:13 AM CDT Legal 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 No / Unsure 01/17/2022 10:31 AM CDT documented as of this encounter Progress Notes * Tera Clancy DO - 01/31/2022 10:34 AM CDT That's fine. documented in this encounter Plan of Treatment Upcoming Encounters Date Type Department Care Team (Late st Contact Info) Description 03/23/2025 11:20 AM CDT Office Visit [facility] Family & Internal Medicine - [address] [phone] Tera Clancy DO [address] [place] [phone] 05/15/2025 1:20 PM CDT Office Visit [facility] Multispecialty Care - [facility] [address] [facility] [address] [facility], [address] [place] [address] Sugar Christine APRN [address] [facility] [place] [address] documented as of this encounter Visit Diagnoses Not on filedocumented in this encounter Additional Health Concerns Assessment Noted Time PHQ-9 Depression Total Score: 0 09/27/19 22 11:40 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
--- OUTSIDE RECORDS SUMMARY | 2025-03-17 11:36 | XMS_ITS | Encounter Summary ---
Author Name [facility] [facility] [place] Address [address] [place] [address] Care Team Providers Care Advanced Clinical Specialist Name Role Phone SPIKE NGUYEN Primary Care [...] Wayne's Name Patient's Relationship to Policy Wayne [facility] 2024 [facility] Sep 07, 2024 [facility] [phone] ELDA COBIAN PATIENT Selected Encounter This section includes the information on record at [place] for the Encounter. Date/Time Encounter Type Encounter Description Reason Provider Source Mar 28, 2024 08:20 AM MANUAL THERAPY 1/> [facility] DEVELOPMENT SPECIALIST ICD-10-CM M54.50 Low back pain, unspecified IMAN BRUSH Encounter Template Text not used by [place] Assessments - Encounter Diagnoses This section includes the primary and secondary diagnoses documented for the Encounter. Date/Time Primary/Secondary Diagnosis Diagnosis Name Provider Source Mar 28, 2024 10:05 AM PRIMARY Low back pain, unspecified KHUSHBOO BRUSH [facility] Mar 28, 2024 10:05 AM SECONDARY Intervertebral disc disorders w radiculopathy, lumbar region KHUSHBOO BRUSH [facility] Plan of Treatment: Future Appointments (+ 6 months) and Future Tests (+/- 45 days) The Plan of Treatment section includes future care activities for the patient [facility] This section includes future appointments and future orders which are active, pending or scheduled. Future Appointments This section includes appointments that were scheduled to occur 6 months from the date of the Encounter, up to a maximum of 20 appointments. The data comes from all [place] treatment facilities. Appointment Date/Time Appointment Type Appointme nt Facility Name Apr 18, 2024 10:00 AM AMBULATORY - MEDICINE [facility] Jul 22, 2024 03:00 PM AMBULATORY - MEDICINE [facility] Jul 29, 2024 12:30 PM AMBULATORY MEDICINE [facility] Social History: Smoking Status (Most current) and Tobacco Use (All prior to encounter date) This section includes the most current, and the historical, smoking and tobacco- related health factors from the [place] facility where the Encounter took place. Current Smoking Status This section includes the most current smoking, or tobacco-related health factor, from the [place] facility where the Encounter took place. Date/Time Current Smoking Status Comment Facil ity Sep 25, 2023 03:30 PM VA-TOBACCO NEVER USED [facility] Encounter Notes: All associated encounter notes This section contains the clinical notes associated to the Encounter. Date/Time Encounter Note(s) Provider Source Mar 28, 2024 07:46 AM CHIROPRACTIC NOTE: LOCAL TITLE: CHIROPRACTIC [facility] STANDARD TITLE: CHIROPRACTIC NOTE DATE OF NOTE: MAR 28, 2024@07:46 ENTRY DATE: MAR 28, 2024@07:46:24 AUTHOR: ANAYELI BRUSH EXP COSIGNER: URGENCY: STATUS: COMPLETED VISIT #6 SUBJECTIVE: Patient presents today for a follow up visit regarding low back pain with radicular symptoms. He presented us with a copy of his NCV results from his community neurosurgeon. He reports that last week was pretty rough and he doesn't know the exact cause. He reports last week having increased right leg pain that limited him from physical activity and decreased his sleep quality. He reports still needing pain medications to help manage his pain. He reports today he woke up around 1:00 am with leg pains that he took gabapentin to manage. He reports using the TENS unit and using the massage gun on his leg and back have been helpful as well. He states that he has had problems scheduling previous neurosurgery clinic and will be meeting with a different community neurosurgeon on 03/31/2024. He reports getting intermittent relief from chiropractic visits that usually only lasts for a day. Denies bowel/bladder changes or any trips, falls or stumbling. OBJECTIVE: MOVEMENT/POSTURE: The ambulates without difficulty or the need for assistance. SEGMENTAL DYSFUNCTION: Joint dysfunction was noted in the thoracic spine, lumbar spine and pelvis PALPATION: Tight and tender muscles of the thoracolumbar paraspinals, hamstrings and external hip rotators. SENSORY Light touch: Bilateral lower extremities intact without deficit. MOTOR (Graded 0-5) All 5/5 bilaterally except : L R Hip Flexion - Iliopsoas (L1,2,3) Leg Extension - Quadriceps (L2,3,4) Hip Adduction (L2,3,4) Tibialis Anterior (L4) Extensor Hallucis Longus (L5) Peroneus Longus and Brevis (S1) REFLEXES - Deep Tendon All 2+ bilaterally except (Graded 0-4) L R Patellar (L4) 1 Achilles (S1) 1 ORTHOPEDIC All tests negative except as indicated: Gait Toe Walk (S1,S2) Heel Walk (L4,L5) Yasir's Sign == NCV/EMG Date of Exam: 03/07/2024 Summary Of Findings: Left peroneal motor NCS shows small CMAP amplitude Right peroneal motor NCS is absent Bilateral tibial motor NCS is normal Bilateral sural and superficial peroneal sensory NCS is absent Needle EMG of right lower limb shows chronic neurogenic motor unit potentials in the tibialis anterior, gastrocnemius medial head, peroneus tertis Conclusion: 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 There is a chronic L5-S1 radiculopathy on the right. == ASSESSMENT: Patient is a pleasant 58 year old male with history of low back pain and left lower radiculopathy. On examination decreased sensation is noted along left anterior dean and 4/5 strength on left lower extremity of tibialis anterior, also decreased left patellar reflex. Patient is scheduled for neurosurgery consultation on 12/18/2023 in community. Patient denies red flags of urinary retention or fecal incontinence. Recommend following up with neurosurgery and recommend trial of conservative care for symptom management. PLAN: Plan of care will consist of 4-6 visits consisting of chiropractic manipulation with an incremental increase in home exercise depending on the patients response. The patient agrees to this plan. Treatment consisted of flexion distraction lumbar spine, prone manipulation thoracic spine. Manual therapy consisting of table assisted pin and stretch thoracolumbar paraspinals and QL. Post isometric relaxation bilateral hamstrings and L external hip rotators. Manual therapy 9 minutes. The patient reported feeling much better following their treatment. Treatment rendered without incident. HOME CARE: Seated hamstring stretch, seated figure 4 external hip rotator stretch RTC:3-4 wks /es/ ANAYELI BRUSH [facility] Chiropractic Physician Signed: 03/28/2024 10:06 ANAYELI BRUSH [facility]
--- OUTSIDE RECORDS SUMMARY | 2025-03-17 11:36 | XMS_ITS | Encounter Summary ---
Author Organization [facility] Address [address] [place] [address] Care Team Providers Care Tie Up Worker Name Role Phone Tera Clancy DO Primary Care Provider + Encounter Details Date Type Department Care Team (Latest Contact Info) Description 03/17/2024 MyChart Message Enc [facility] Family [facility] Internal [facility] [place] [address] [place] [address] Tera Clancy DO [address] [place], [place] [id number] Referral for Ambrosio to see Dr. 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 Gender Identity Male 11/17/2024 11:13 AM CDT Sexual Orientation Not on file documented as of this encounter Plan of Treatment Upcoming Encounters Date Type Department Care Team (Late st Contact Info) Description 03/23/2025 11:20 AM CDT Office Visit [facility] Family & Internal Medicine - [place] [address] [place] [address] [place] [address] [place] [id number] 05/15/2025 1:20 PM CDT Office Visit [facility] - [facility] [address] [facility], [address] [place] [address] Sugar Christine, [place] [address] [facility] [address] [place] [address] documented as of this encounter Visit Diagnoses Not on filedocumented in this encounter Additional Health Concerns Assessment Noted Time PHQ-9 Depression Total Score: 0 09/27/19 11:40 AM EXPERIMENTAL WORKER documented as of this encounter Care Teams Tie Up Worker Relationship Specialty Start Date End Date Tera Clancy DO [address] [place] [id number] PCP - General FAMILY PRACTICE 10/22/18 documented as of this encounter
--- OUTSIDE RECORDS SUMMARY | 2025-03-17 11:36 | XMS_ITS | Continuity of Care Document ---
Author Name [facility] Organization [facility] Care Team Providers Care Project Intern Name Role Phone [facility] Unavailable Unavailable Problems Combined list of problems from Department of Defense and Veterans Affairs facilities. It does not include entries that were removed or entered in error. Problem Status Onset Date Problem Type Date of Resolution Comments Source Asthma ([facility] [id number]) Active Condition [facility] Chronic rhinitis Active Condition [facility] Exposure to potentially hazardous substance Active Condition [facility] GERD - Gastro-Esophageal Reflux Disease ([facility] [id number]) Active Condition [facility] Hyperlipidemia ([facility] [id number]) Active Condition [facility] Low back pain Active Condition [facility] Lumbar radiculopathy Active Condition May 04, 2024 Entered By: JOHN NUNEZ Comment: Bilateral LE EMG 03/07/24 Dr. Mal Deal, chronic L5-S1 radiculopathy, sensorimotor axonal polyneuropathyA 2023 Entered By: JOHN NUNEZ Comment: chronic L5-S1 right radiculopathy, sensorimotor axonal polyneuropathy [facility] Vitamin D Deficiency ([facility] [id number]) Active Condition [facility] visit for: ears / hearing exam Active Condition [facility] visit for: screening exam pulmonary tuberculosis Inactive Condition [facility] Basic Life / Disability Examination Inactive Condition Do D HYPERCHOLESTEROLEMIA Active Condition D oD CLOSED FRACTURE OF SACRUM / COCCYX Active Condition h/o fracture ; chronic pain. [facility] ESOPHAGITIS CHRONIC REFLUX Active Condition controlled with OTC. [facility] JOINT INSTABILITY ANKLE / FOOT Active Condition bilateral ankles. [facility] ALLERGIC RHINITIS Active Condition co ntrolled with OTC. [facility] Physical Examination Inactive Condition [facility] physical exam with findings of chronic lower back pain due to disc herniation and spinal degenerative changes, chronic coccyx pain, chronic bilateral knee pain, and bilateral ankle instability; Recommend continued monitoring with annual exams. [facility] CLOSED SKULL FRACTURE OF ORBITAL RIM ZYGOMATIC ARCH Active Condition [facility] DIASTASIS OF MUSCLE Active Condition [facility] JOINT INSTABILITY ANKLE / FOOT Active Condition [facility] INTERVERTEBRAL DISC DEGENERATION Active Condition unresponsive to medical management with pain medications. [facility] joint pain, localized in the knee Active Condition bilateral knee; tolerable pain. [facility] KNEE SPRAIN Inactive Condition Suspect vastus medialis strain. [facility] Diagnosis: ICD-10-CM Z13.9 Encounter for screening, unspecified Active Diagnosis [facility] Diagnosis: ICD-10-CM J45.909 Unspecified asthma, uncomplicated Active Diagnosis [facility] Diagnosis: ICD-10-CM Z13.5 Encounter for screening for eye and ear disorders Active Diagnosis [facility] Diagnosis: ICD-10-CM E11.9 Type 2 diabetes mellitus without complications Active Diagnosis [facility] Diagnosis: ICD-10-CM M54.50 Low back pain, unspecified Active Diagnosis [facility] Diagnosis: ICD-10-CM Z23 Encounter for immunization Active Diagnosis [facility] Diagnosis: ICD-10-CM Z71.89 Other specified counseling Active Diagnosis [facility] Diagnosis: ICD-10-CM Z79.899 Other custodial (current) drug therapy Active Diagnosis [facility] Medications Combined list of outpatient medications from Department of Defense and [facility] Affairs facilities.Medications provided include 1) outpatient medications from the last 15 months, and 2) patient-reported medications. Medication Details Route Status Patient Instructions Prescription Expires Prescription Number Last Dispense Date Ordering Provider Order Date Order Qty Source ALBUTEROL SO4 90MCG/ACTUA T (CFC-F) INHL,ORAL,8 .5GM INHALE 2 PUFFS ORAL INHALATI ON FOUR TIMES A DAY NEEDED FOR ASTHMA SHAKE WELL. RINSE MOUTHPIE CE FREQUENT LY TO PREVENT CLOGGING . RESPIR ATORY (INHAL ATION) ACTIVE 01/27/2026 [id number] GUADALUPE 2024 3 [facility] ALBUTEROL SO4 90MCG/ACTUA T (CFC-F) INHL,ORAL,8 .5GM INHALE 2 PUFFS ORAL INHALATI ON FOUR TIMES A DAY NEEDED FOR ASTHMA SHAKE WELL. RINSE MOUTHPIE CE FREQUENT LY TO PREVENT CLOGGING . RESPIR ATORY (INHAL ATION) DISCONT INUED 07/30/2025 [id number] DEANNA TONG 2023 3 [facility] ALBUTEROL SO4 90MCG/ACTUA T (CFC-F) INHL,ORAL,8 .5GM INHALE 2 PUFFS ORAL INHALATI ON FOUR TIMES A DAY NEEDED FOR ASTHMA SHAKE WELL. RINSE MOUTHPIE CE FREQUENT LY TO PREVENT CLOGGING . RESPIR ATORY (INHAL ATION) DISCONT INUED 10/05/2024 [id number] 4 MAYRAPR TTISA 2023 3 [facility] ASPIRIN 81MG TAB,EC TAKE ONE TABLET BY MOUTH ONCE A DAY ORAL ACTIVE Lala WARREN 2023 [facility] CETIRIZINE (U/D) 10 MG ORAL TAB TAKE ONE TABLET BY MOUTH ONCE A DAY FOR ALLERGY SYMPTOMS 10/05/2024 [id number] [facility] 2023 90 [facility] CETIRIZINE HCL 10MG TAB TAKE ONE TABLET BY MOUTH ONCE A DAY FOR ALLERGY SYMPTOMS ORAL ACTIVE 07/30/2025 [id number] 5 DEANNA TONG 2024 90 [facility] CETIRIZINE HCL 10MG TAB TAKE ONE TABLET BY MOUTH ONCE A DAY FOR ALLERGY SYMPTOMS ORAL DISCONT INUED 10/05/2024 [id number] 4 MAYRAPR TTISA 2023 90 [facility] CHOLECALCIF (VIT D3) 1,000 UNIT ORAL TAB TAKE ONE TABLET BY MOUTH ONCE A DAY FOR VITAMIN D DEFICIEN CY 10/05/2024 [id number] MAYRA METTISPtio 2023 100 [facility] CHOLECALCIF SUNG 25MCG (1,000UNIT) TAB TAKE ONE TABLET BY MOUTH ONCE A DAY FOR VITAMIN D DEFICIEN CY ORAL ACTIVE 07/30/2025 [id number] 5 DEANNA TONG 2024 100 [facility] CHOLECALCIF SUNG 25MCG (1,000UNIT) TAB TAKE ONE TABLET BY MOUTH ONCE A DAY FOR VITAMIN D DEFICIEN CY ORAL DISCONT INUED 10/05/2024 [id number] 4 NUNEZ,ME TTISA 2023 100 [facility] CRESTOR (BRAND) 20 MG ORAL TAB TAKE ONE-HALF TABLET BY MOUTH EVERY EVENING FOR HIGH CHOLESTE ROL 10/05/2024 [id number] 4 JOHN NUNEZ 2023 45 [facility] CURCUMA CAP/TAB TAKE 1 CAP/TAB BY MOUTH ONCE A DAY ORAL ACTIVE Lala WARREN 2023 [facility] FLUTICASONE 250MCG/SALM ETEROL 50MCG INHL,ORAL,D ISKUS,60 INHALE 1 INHALATI ON ORAL INHALATI ON TWICE A DAY FOR ASTHMA (OPEN DISKUS; CLICK ONLY ONCE; MAY INHALE TWICE TO COMPLETE DOSE; CLOSE WHEN FINISHED ) RINSE MOUTH AND SPIT AFTER EACH USE. RESPIR ATORY (INHAL ATION) ACTIVE 07/30/2025 [id number] 5 DEANNA TONG 2024 3 [facility] FLUTICASONE 250MCG/SALM ETEROL 50MCG INHL,ORAL,D ISKUS,60 INHALE 1 INHALATI ON ORAL INHALATI ON TWICE A DAY FOR ASTHMA (OPEN DISKUS; CLICK ONLY ONCE; MAY INHALE TWICE TO COMPLETE DOSE; CLOSE WHEN FINISHED ) RINSE MOUTH AND SPIT AFTER EACH USE. RESPIR ATORY (INHAL ATION) DISCONT INUED 10/05/2024 [id number] NUNEZ,ME TTISA 2023 3 [facility] Fluticasone Propionate/ Salmeterol Xinafoate (Advair Diskus Eq.) Device Not Specified 250-50 mcg Inhalation INHALE 1 INHALATI ON ORAL INHALATI ON TWICE A DAY FOR ASTHMA (OPEN DISKUS; CLICK ONLY ONCE; MAY INHALE TWICE TO COMPLETE DOSE; CLOSE WHEN FINISHED ) RINSE MOUTH AND SPIT AFTER EACH USE. 10/05/2024 [id number] 4 JOHN NUNEZ 2023 3 [facility] GABAPENTIN (U/D) 300 MG ORAL CAP TAKE ONE CAPSULE BY MOUTH AT BEDTIME FOR NERVE PAIN 10/02/2024 [id number] 4 JOHN NUNEZ 2023 90 [facility] GABAPENTIN 300MG CAP TAKE ONE CAPSULE BY MOUTH AT BEDTIME FOR NERVE PAIN ORAL DISCONT INUED BY PROVIDE R 07/30/2025 [id number] 5 DEANNA TONG 2024 90 [facility] GABAPENTIN 300MG CAP TAKE ONE CAPSULE BY MOUTH AT BEDTIME FOR NERVE PAIN ORAL DISCONT INUED 10/02/2024 [id number] 4 ME MAYRA TTISA 2023 90 [facility] METFORMIN HCL 500MG 24HR TAB,SA TAKE TWO TABLETS BY MOUTH TWICE A DAY FOR DIABETES TAKE WITH FOOD. AVOID ALCOHOL. DISCONTI NUE BEFORE GETTING XRAY DYE. ORAL DISCONT INUED BY PROVIDE R 08/12/2025 [id number] 5 DEANNA TONG 2024 360 [facility] METFORMIN HCL 500MG 24HR TAB,SA TAKE TWO TABLETS BY MOUTH TWICE A DAY FOR DIABETES TAKE WITH FOOD. AVOID ALCOHOL. DISCONTI NUE BEFORE GETTING XRAY DYE. ORAL DISCONT INUED 08/12/2025 [id number] 5 DEANNA TONG 2023 120 [facility] METFORMIN HCL 500MG 24HR TAB,SA TAKE ONE TABLET BY MOUTH TWICE A DAY FOR DIABETES TAKE WITH FOOD. AVOID ALCOHOL. DISCONTI NUE BEFORE GETTING XRAY DYE. ORAL DISCONT INUED BY PROVIDE R 07/30/2025 [id number] 4 DEANNA TONG 2023 60 [facility] MONTELUKAST (U/D) 10 MG ORAL TAB TAKE ONE TABLET BY MOUTH EVERY EVENING FOR ASTHMA 10/05/2024 [id number] JOHN NUNEZ 2023 90 [facility] MONTELUKAST NA 10MG TAB TAKE ONE TABLET BY MOUTH EVERY EVENING FOR ASTHMA ORAL ACTIVE 07/30/2025 [id number] 5 DEANNA TONG 2024 90 [facility] MONTELUKAST NA 10MG TAB TAKE ONE TABLET BY MOUTH EVERY EVENING FOR ASTHMA ORAL DISCONT INUED 10/05/2024 [id number] 4 ME MAYRA TTISA 2023 90 [facility] MULTIVITAMI N CAP/TAB TAKE BY MOUTH ONCE A DAY ORAL ACTIVE Lala WARREN 2023 [facility] NON-FORMULA RY TAB TAKE GUAIFENE SIN 1200MG / PSEUDOEP HEDRINE 60MG BY MOUTH ONCE A DAY ORAL ACTIVE Lala WARREN 2023 [facility] Omeprazole (Prilosec Eq.) Capsule Conventiona l 40 mg Oral TAKE ONE CAPSULE BY MOUTH EVERY MORNING BEFORE A MEAL FOR GASTROES OPHAGEAL REFLUX DISEASE TAKE 30 MINUTES PRIOR TO FOOD. 10/05/2024 [id number] 4 [facility] 2023 90 [facility] OMEPRAZOLE 40MG CAP,EC TAKE ONE CAPSULE BY MOUTH EVERY MORNING BEFORE A MEAL FOR GASTROES OPHAGEAL REFLUX DISEASE TAKE 30 MINUTES PRIOR TO FOOD. ORAL ACTIVE 07/30/2025 [id number] 5 DEANNA TONG 2024 90 [facility] OMEPRAZOLE 40MG CAP,EC TAKE ONE CAPSULE BY MOUTH EVERY MORNING BEFORE A MEAL FOR GASTROES OPHAGEAL REFLUX DISEASE TAKE 30 MINUTES PRIOR TO FOOD. ORAL DISCONT INUED 10/05/2024 [id number] NUNEZ,ME TTISA 2023 90 [facility] ROSUVASTATI N CA 20MG TAB TAKE ONE-HALF TABLET BY MOUTH EVERY EVENING FOR HIGH CHOLESTE ROL ORAL ACTIVE 07/30/2025 [id number] 5 HESTERBER DEANNA Romero 2024 45 [facility] ROSUVASTATI N CA 20MG TAB TAKE ONE-HALF TABLET BY MOUTH EVERY EVENING FOR HIGH CHOLESTE ROL ORAL DISCONT INUED 10/05/2024 [id number] ME MAYRA TTISA 2023 45 [facility] ROSUVASTATI N CA 20MG TAB TAKE ONE-HALF TABLET BY MOUTH EVERY EVENING ORAL ACTIVE KHUSHBULILIAM DEANNA Romero Lilli 2023 [facility] TESTOSTERON E ENANTHATE (IN OIL) 75MG/0.5ML INJ,PEN,0.5 ML INJECT 1 ML UNDER THE SKIN EVERY WEEK SUBCUT ANEOUS ACTIVE JENNIFER LISA RomeroBOONE Reeder 2023 [facility] TIRZEPATIDE 5MG/0.5ML INJ,SOLN PACK,4 INJECT 5MG(0.5M L) UNDER THE SKIN EVERY WEEK SUBCUT ANEOUS ACTIVE GUADALUPE 2024 [facility] TRIAMCINOLO NE ACETONIDE 55MCG/ACTUA TION,AQ,SPR AY,NASAL,16 .5GM USE 2 PUFFS INTO NOSTRIL( S) ONCE A DAY NASAL ACTIVE Lala WARREN 2023 [facility] XYOSTED (testostero ne enanthate), 75MG/0.5ML, AUTO INJCT, SUBCUT, ANTARES PHARMA, .5 ml SYRINGE Active [id number] 2023 6 Pharmac y Data Transac tion Service Facilit y Allergies, Adverse Reactions, Alerts Combined list of allergies from Department of Defense and Veterans Affairs facilities. It does not include entries that were removed or entered in error. Substance Category Reaction Severity Reaction type Status Date Reported Comments Source No Known Allergies Drug allergy (disorder) active 10/04/2007 JOHANNA Espinosa Immunizations Combined list of available immunizations from the Department of Defense and Veterans Affairs facilities. Immunization Series Date Given Administered By Site Reaction Lot Number CVX Code Drug Contact Agent Status Comments Source INFLUENZA, SPLIT VIRUS, TRIVALENT, PF 2023 NORBERTO RAMON RIGHT DELTO ID [id number] 140 complet ed Completed Series, ADMINISTE RED AT [facility] ZOSTER RECOMBINANT 2 2023 MURPHY HENDERSON LEFT DELTO ID [id number] 187 complet ed ADMINISTE RED AT [facility] ZOSTER RECOMBINANT 1 2023 NORBERTO RAMON RIGHT DELTO ID [id number] 187 complet ed ADMINISTE RED AT [facility] INFLUENZA, INJECTABLE, QUADRIVALENT, PRESERVATIVE FREE 5 2022 150 complet ed HISTORICA L INFORMATI ON - FROM OTHER [facility] INFLUENZA, INJECTABLE, QUADRIVALENT, PRESERVATIVE FREE 4 2021 150 complet ed HISTORICA L INFORMATI ON - FROM OTHER [facility] PNEUMOCOCCAL CONJUGATE PCV20, POLYSACCHARID E [id number] CONJUGATE, ADJUVANT, PF 1 2021 216 complet ed HISTORICA L INFORMATI ON - FROM OTHER [facility] COVID-19 ([employer]), MRNA, LNP-S, PF, 30 MCG/0.3 ML DOSE 2 2020 208 complet ed HISTORICA L INFORMATI ON - FROM OTHER [facility], [facility] COVID-19, mRNA, LNP-S, PF, 30 mcg/0.3 mL dose 2020 [employer] [place] (PFR) Not Given COVID-19, mRNA, LNP-S, PF, 30 mcg/0.3 mL dose DoD COVID-19 (PFIZER), MRNA, LNP-S, PF, 30 MCG/0.3 ML DOSE 1 2020 208 complet ed HISTORICA L INFORMATI ON - FROM OTHER [facility] COVID-19, mRNA, LNP-S, PF, 30 mcg/0.3 mL dose 2020 [employer] [place] (PFR) Not Given COVID-19, mRNA, LNP-S, PF, 30 mcg/0.[address] [facility] TDAP 1 2019 115 complet ed HISTORICA L INFORMATI ON - FROM OTHER [facility] N INFLUENZA, INJECTABLE, QUADRIVALENT 3 2018 158 complet ed HISTORICA L INFORMATI ON - FROM OTHER [facility], [facility] N influenza, injectable, quadrivalent, preservative free 2018 ALUL, () Not Given influenza , injectabl e, quadrival ent, preservat ted free DoD INFLUENZA, INJECTABLE, QUADRIVALENT, PRESERVATIVE FREE 2 2017 150 complet ed HISTORICA L INFORMATI ON - FROM OTHER [facility] N Influenza, injectable, MDCK, preservative free, quadrivalent 2016 ALUL, () Not Given Influenza , injectabl e, MDCK, preservat ted free, quadrival ent DoD INFLUENZA, INJECTABLE, MDCK, PRESERVATIVE FREE, QUADRIVALENT 1 2016 171 complet ed HISTORICA L INFORMATI ON - FROM OTHER [facility], [facility] tuberculin skin test; purified protein derivative solution, intradermal 1 2006 Unknown, Provider [id number] [place] (PD) complet tuberculi n skin test; purified protein derivativ e solution, intraderm al [facility] anthrax vaccine 8 2006 [id number] [employer] (MIP) complet ed anthrax vaccine [facility] influenza virus vaccine, live, attenuated, for intranasal use 1 2005 [id number] Unknown (UNK) comple t ed influenza virus vaccine, live, attenuate d, for intranasa l use [facility] influenza virus vaccine, split virus (incl. purified surface antigen)-reti red CODE 1 2004 [id number] [employer] (AVB) complet ed influenza virus vaccine, split virus (incl. purified surface antigen)- retired CODE DoD tetanus and diphtheria toxoids, adsorbed, preservative free, for adult use (2 Lf of tetanus toxoid and 2 Lf of diphtheria toxoid) 1 2004 [id number] [employer] (AVB) complet ed tetanus and diphtheri a toxoids, adsorbed, preservat ted free, for adult use (2 Lf of tetanus toxoid and 2 Lf of diphtheri a toxoid) DoD Greenlandic Encephalitis Vaccine SC 1 2004 [id number] [employer] (AVB) complet ed Green[place]ic Encephali tis Vaccine SC DoD typhoid Vi capsular polysaccharid e vaccine 1 2003 [id number] [employer] (AVB) complet ed typhoid Vi capsular polysacch aride vaccine DoD influenza virus vaccine, split virus (incl. purified surface antigen)-reti red CODE 1 2003 [id number] 15 Sanofi Pasteur ([facility]) complet ed influenza virus vaccine, split virus (incl. purified surface antigen)- retired CODE DoD hepatitis B vaccine, adult dosage 3 2003 [id number] 43 Unknown (UNK) comple t ed hepatitis B vaccine, adult dosage DoD hepatitis A vaccine, adult dosage 2 2003 UNK 52 Unknown (UNK) comple t ed hepatitis A vaccine, adult dosage DoD vaccinia (smallpox) vaccine 1 2003 [id number] 75 Roberto Carlos ([facility]) complet ed vaccinia (smallpox ) vaccine DoD anthrax vaccine 7 2003 [id number] [facility] [employer] [facility] ([facility]) complet ed anthrax vaccine DoD poliovirus vaccine, inactivated 1 2003 [id number] Sanofi Pasteur ([facility]) complet ed polioviru s vaccine, inactivat ed DoD influenza virus vaccine, split virus (incl. purified surface antigen)-reti red CODE 1 2002 [id number] Karlo (JESSICA) complet ed influenza virus vaccine, split virus (incl. purified surface antigen)- retired CODE DoD influenza virus vaccine, split virus (incl. purified surface antigen)-reti red CODE 0 2001 [id number] 15 Sanofi Pasteur ([facility]) complet ed influenza virus vaccine, split virus (incl. purified surface antigen)- retired CODE DoD typhoid Vi capsular polysaccharid e vaccine 0 2001 [id number] Merck (MSD) complet ed typhoid Vi capsular polysacch aride vaccine DoD anthrax vaccine 6 1999 [id number] 24 [employer] (MIP) complet ed anthrax vaccine DoD anthrax vaccine 5 1998 [id number] [employer] (MIP) complet ed anthrax vaccine DoD anthrax vaccine 4 1998 [id number] 24 [employer] (MIP) complet ed anthrax vaccine DoD anthrax vaccine 2 1997 [id number] [employer] (MIP) complet ed anthrax vaccine DoD anthrax vaccine 2 1997 [id number] [employer] (MIP) complet ed anthrax vaccine DoD anthrax vaccine 1 1997 [id number] 24 [employer] (MIP) complet ed anthrax vaccine DoD hepatitis B vaccine, adult dosage 2 1996 [id number] 43 Unknown (UNK) comple t ed hepatitis B vaccine, adult dosage DoD hepatitis A vaccine, adult dosage 1 1996 UNK 52 Unknown (UNK) comple t ed hepatitis A vaccine, adult dosage DoD hepatitis B vaccine, adult dosage 1 1990 UNK 43 Unknown (UNK) comple t ed hepatitis B vaccine, adult dosage DoD Results Combined list of recent chemistry, hematology and other laboratory results from Department of Defense and Veterans Affairs, ranging from 15 months to all on record, depending upon the facility. Order Name Results Value Reference Range Date Interpretation Specimen Comments Source GLUCOSE,B LOOD-poct (STL) GLUCOSE [MASS/VOLUM E] IN BLOOD BY AUTOMATED TEST STRIP 84 mg/dL 72 - 99 01/26 Specimen Type: BLOOD Comment: Test Performed by: [id number] Meter #: [id number] Ordering Provider: HAL NGUYEN Report Released Date/Time: January 26, 2025 04:55 PM Reporting Lab: [facility] [facility] [id number] Performing Lab: [facility] [address] [place] [address] [facility] HGA1C HEMOGLOBIN A1C/HEMOGLO BIN.TOTAL IN BLOOD 10.5 4.0 - 6.0 07/29 H Specimen Type: BLOOD No comment entered. Ordering Provider: DEANNA AGUILERA Report Released Date/Time: Jul 29, 2024 01:13 PM Reporting Lab: [facility] [address] [facility] [address] Performing Lab: [facility] [address] [place] [phone] [facility] COMPREHEN SIVE METABOLIC PANEL CREATININE [MASS/VOLUM E] IN SERUM OR PLASMA 0.90 mg/dL 0.7 - 1.3 07/29 Specimen Type: PLASMA Comment: No hemolysis noted. Ordering Provider: DEANNA AGUILERA Report Released Date/Time: Jul 29, 2024 01:13 PM Reporting Lab: [place] [address] [facility] [address] Performing Lab: [facility] [address] [facility] [address] [facility] COMPREHEN SIVE METABOLIC PANEL UREA NITROGEN [MASS/VOLUM E] IN SERUM OR PLASMA 8.7 mg/dL 9.0 - 25.0 07/29 L Specimen Type: PLASMA Comment: No hemolysis noted. Ordering Provider: DEANNA AGUILERA Report Released Date/Time: Jul 29, 2024 01:13 PM Reporting Lab: [address] [address] Performing Lab: [facility] [address] [facility] [address] [facility] COMPREHEN SIVE METABOLIC PANEL GLUCOSE [MASS/VOLUM E] IN SERUM OR PLASMA 133 mg/dL 72 - 99 07/29 H Specimen Type: PLASMA Comment: No hemolysis noted. Ordering Provider: DEANNA AGUILERA Report Released Date/Time: Jul 29, 2024 01:13 PM Reporting Lab: [facility] [address] [place] [phone] Performing Lab: [facility] [address] [place] [address] [facility] COMPREHEN SIVE METABOLIC PANEL SODIUM [MOLES/VOLU ME] IN SERUM OR PLASMA 138 meq/L 136 - 145 07/29 Specimen Type: PLASMA Comment: No hemolysis noted. Ordering Provider: DEANNA AGUILERA Report Released Date/Time: Jul 29, 2024 01:13 PM Reporting Lab: [facility] [address] [facility] [address] Performing Lab: [facility] [address] [facility] [address] [facility] COMPREHEN SIVE METABOLIC PANEL POTASSIUM [MOLES/VOLU ME] IN SERUM OR PLASMA 4.4 meq/L 3.5 - 5 07/29 Specimen Type: PLASMA Comment: No hemolysis noted. Ordering Provider: DEANNA AGUILERA Report Released Date/Time: Jul 29, 2024 01:13 PM Reporting Lab: [facility] [address] [facility] [address] Performing Lab: [facility] [address] [facility] [address] [facility] COMPREHEN SIVE METABOLIC PANEL CHLORIDE [MOLES/VOLU ME] IN SERUM OR PLASMA 103 meq/L 98 - 107 07/29 Specimen Type: PLASMA Comment: No hemolysis noted. Ordering Provider: DEANNA AGUILERA Report Released Date/Time: Jul 29, 2024 01:13 PM Reporting Lab: [facility] [address] [facility] [address] Performing Lab: [facility] [address] [facility] [address] [facility] COMPREHEN SIVE METABOLIC PANEL CARBON DIOXIDE, TOTAL [MOLES/VOLU ME] IN SERUM OR PLASMA 29 meq/L 22 - 31 07/29 Specimen Type: PLASMA Comment: No hemolysis noted. Ordering Provider: DEANNA AGUILERA Report Released Date/Time: Jul 29, 2024 01:13 PM Reporting Lab: [facility] [address] [facility] [address] Performing Lab: [facility] [address] [facility] [address] [facility] COMPREHEN SIVE METABOLIC PANEL CALCIUM [MASS/VOLUM E] IN SERUM OR PLASMA 10.1 mg/dL 8.4 - 10.4 07/29 Specimen Type: PLASMA Comment: No hemolysis noted. Ordering Provider: DEANNA AGUILERA Report Released Date/Time: Jul 29, 2024 01:13 PM Reporting Lab: [facility] [address] [facility] [address] Performing Lab: [address] [address] [facility] COMPREHEN SIVE METABOLIC PANEL PROTEIN [MASS/VOLUM E] IN SERUM OR PLASMA 8.3 g/dL 6 - 8.6 07/29 Specimen Type: PLASMA Comment: No hemolysis noted. Ordering Provider: DEANNA AUGILERA Report Released Date/Time: Jul 29, 2024 01:13 PM Reporting Lab: [facility] [address] Performing Lab: [place] [address] [facility] [address] [facility] COMPREHEN SIVE METABOLIC PANEL ALBUMIN [MASS/VOLUM E] IN SERUM OR PLASMA 4.3 g/dL 3.4 - 5 07/29 Specimen Type: PLASMA Comment: No hemolysis noted. Ordering Provider: DEANNA AGUILERA Report Released Date/Time: Jul 29, 2024 01:13 PM Reporting Lab: [facility] [place] [facility] [address] Performing Lab: [address] [address] [facility] COMPREHEN SIVE METABOLIC PANEL BILIRUBIN.T OTAL [MASS/VOLUM E] IN SERUM OR PLASMA 0.5 mg/dL 0.2 - 1.2 07/29 Specimen Type: PLASMA Comment: No hemolysis noted. Ordering Provider: DEANNA AGUILERA Report Released Date/Time: Jul 29, 2024 01:13 PM Reporting Lab: [facility] [address] [facility] [address] Performing Lab: [facility] [address] [facility] [address] [facility] COMPREHEN SIVE METABOLIC PANEL ALKALINE PHOSPHATASE [ENZYMATIC ACTIVITY/VO LUME] IN SERUM OR PLASMA 83 U/L 40 - 150 07/29 Specimen Type: PLASMA Comment: No hemolysis noted. Ordering Provider: DEANNA AGUILERA Report Released Date/Time: Jul 29, 2024 01:13 PM Reporting Lab: [facility] [address] [facility] [address] Performing Lab: [facility] [address] [facility] [address] [facility] COMPREHEN SIVE METABOLIC PANEL ASPARTATE AMINOTRANSF ERASE [ENZYMATIC ACTIVITY/VO LUME] IN SERUM OR PLASMA 25 U/L 5 - 34 07/29 Specimen Type: PLASMA Comment: No hemolysis noted. Ordering Provider: DEANNA AGUILERA Report Released Date/Time: Jul 29, 2024 01:13 PM Reporting Lab: [facility] [address] [facility] [address] Performing Lab: [facility] [address] [facility] [address] [facility] COMPREHEN SIVE METABOLIC PANEL ALANINE AMINOTRANSF ERASE [ENZYMATIC ACTIVITY/VO LUME] IN SERUM OR PLASMA 17 U/L 8 - 40 07/29 Specimen Type: PLASMA Comment: No hemolysis noted. Ordering Provider: DEANNA AGUILERA Report Released Date/Time: Jul 29, 2024 01:13 PM Reporting Lab: [facility] [address] [facility] [address] Performing Lab: [facility] [address] [facility] [address] [facility] COMPREHEN SIVE METABOLIC PANEL GLOMERULAR FILTRATION RATE/1.73 SQ M.PREDICTED [VOLUME RATE/AREA] IN SERUM, PLASMA OR BLOOD BY CREATININE- BASED FORMULA (CKD-EPI 2020) 97.2 60 07/29 Specimen Type: PLASMA Comment: No hemolysis noted. Ordering Provider: DEANNA AGUILERA Report Released Date/Time: Jul 29, 2024 01:13 PM Reporting Lab: [facility] [address] [place] [phone] Performing Lab: [facility] [address] [place] [address] [facility] LIPID PANEL (STL) CHOLESTEROL [MASS/VOLUM E] IN SERUM OR PLASMA 157 mg/dL 0 - 200 07/29 Specimen Type: PLASMA Comment: No hemolysis noted. Ordering Provider: DEANNA AGUILERA Report Released Date/Time: Jul 29, 2024 01:13 PM Reporting Lab: [address] [address] Performing Lab: [address] [address] [facility] LIPID PANEL (L) TRIGLYCERID E [MASS/VOLUM E] IN SERUM OR PLASMA 113 mg/dL 0 - 150 07/29 Specimen Type: PLASMA Comment: No hemolysis noted. Ordering Provider: DEANNA AGUILERA Report Released Date/Time: Jul 29, 2024 01:13 PM Reporting Lab: [address] [address] Performing Lab: [address] [address] [facility] LIPID PANEL (STL) CHOLESTEROL IN LDL [MASS/VOLUM E] IN SERUM OR PLASMA BY CALCULATION 100 mg/dL 07/29 Specimen Type: PLASMA Comment: No hemolysis noted. Ordering Provider: DEANNA AGUILERA Report Released Date/Time: Jul 29, 2024 01:13 PM Reporting Lab: [address] [address] Performing Lab: [address] [address] [facility] LIPID PANEL (STL) CHOLESTEROL IN HDL [MASS/VOLUM E] IN SERUM OR PLASMA 34 mg/dL 40 07/29 L Specimen Type: PLASMA Comment: No hemolysis noted. Ordering Provider: DEANNA AGUILERA Report Released Date/Time: Jul 29, 2024 01:13 PM Reporting Lab: [address] [address] Performing Lab: [address] [phone] [place] [address] VITAMIN D, 25-HYDROX Y 25-HYDROXYV ITAMIN D3 [MASS/VOLUM E] IN SERUM OR PLASMA 45.8 ng/mL 30 - 96 07/29 Specimen Type: SERUM Comment: The listed sex of this patient may not be a typical indication for this test. Therefore, reference ranges or interpretiv e criteria listed may not be valid. Clinical correlation suggested. Ordering Provider: DEANNA AGUILERA Report Released Date/Time: Jul 29, 2024 01:13 PM Reporting Lab: [address] [address] Performing Lab: [address] [phone] [place] [address] PROST. SPECIFIC AG.(PB-ST L) PROSTATE SPECIFIC AG [MASS/VOLUM E] IN SERUM OR PLASMA 2.034 ng/mL 0 - 4 07/29 Specimen Type: SERUM Comment: The listed sex of this patient may not be a typical indication for this test. Therefore, reference ranges or interpretiv e criteria listed may not be valid. Clinical correlation suggested. Ordering Provider: DEANNA AGUILERA Report Released Date/Time: Jul 29, 2024 01:26 PM Reporting Lab: [address] [address] Performing Lab: [address] [phone] [place] [address] CBC LEUKOCYTES [#/VOLUME] IN BLOOD BY AUTOMATED COUNT 6.0 10*3/u L 3.6 - 11.2 07/29 Specimen Type: BLOOD No comment entered. Ordering Provider: DEANNA AGUILERA Report Released Date/Time: Jul 29, 2024 01:26 PM Reporting Lab: [address] [address] Performing Lab: [facility] [address] [place] [address] [facility] CBC ERYTHROCYTE S [#/VOLUME] IN BLOOD BY AUTOMATED COUNT 5.10 10*6/u L 4.10 - 5.70 07/29 Specimen Type: BLOOD No comment entered. Ordering Provider: DEANNA AGUILERA Report Released Date/Time: Jul 29, 2024 01:26 PM Reporting Lab: [address] [address] Performing Lab: [address] [phone] [place] [address] CBC HEMOGLOBIN [MASS/VOLUM E] IN BLOOD 15.6 g/dL 13.1 - 16.8 07/29 Specimen Type: BLOOD No comment entered. Ordering Provider: DEANNA AGUILERA Report Released Date/Time: Jul 29, 2024 01:26 PM Reporting Lab: [facility] [address] [place] [phone] Performing Lab: [address] [phone] [place] [address] CBC HEMATOCRIT [VOLUME FRACTION] OF BLOOD 46.4 38.2 - 48.4 07/29 Specimen Type: BLOOD No comment entered. Ordering Provider: DEANNA AGUILERA Report Released Date/Time: Jul 29, 2024 01:26 PM Reporting Lab: [address] [address] Performing Lab: [address] [address] [facility] CBC MCV [ENTITIC VOLUME] BY AUTOMATED COUNT 91.0 fL 80.0 - 100.0 07/29 Specimen Type: BLOOD No comment entered. Ordering Provider: DEANNA AGUILERA Report Released Date/Time: Jul 29, 2024 01:26 PM Reporting Lab: [facility] [address] [place] [phone] Performing Lab: [facility] [address] [place] [address] [facility] CBC MCH [ENTITIC MASS] BY AUTOMATED COUNT 30.6 pg 27.0 - 34.0 07/29 Specimen Type: BLOOD No comment entered. Ordering Provider: DEANNA AGUILERA Report Released Date/Time: Jul 29, 2024 01:26 PM Reporting Lab: [facility] [address] [place] [address] Performing Lab: [address] [phone] [place] [address] CBC MCHC [MASS/VOLUM E] BY AUTOMATED COUNT 33.6 g/dL 33.0 - 36.0 07/29 Specimen Type: BLOOD No comment entered. Ordering Provider: DEANNA AGUILERA Report Released Date/Time: Jul 29, 2024 01:26 PM Reporting Lab: [facility] [address] [place] [address] Performing Lab: [facility] [address] [place] [address] [phone] [place] [address] CBC PLATELETS [#/VOLUME] IN BLOOD BY AUTOMATED COUNT 334 10*3/u L 150 - 400 07/29 Specimen Type: BLOOD No comment entered. Ordering Provider: DEANNA AGUILERA Report Released Date/Time: Jul 29, 2024 01:26 PM Reporting Lab: [facility] [address] [place] [phone] Performing Lab: [facility] [address] [place] [address] [facility] CBC PLATELET MEAN VOLUME [ENTITIC VOLUME] IN BLOOD BY AUTOMATED COUNT 10.8 fL 7.5 - 11.2 07/29 Specimen Type: BLOOD No comment entered. Ordering Provider: DEANNA AGUILERA Report Released Date/Time: Jul 29, 2024 01:26 PM Reporting Lab: [facility] [address] [facility] [address] Performing Lab: [facility] [address] [facility] [address] [facility] CBC ERYTHROCYTE DISTRIBUTIO N WIDTH [RATIO] BY AUTOMATED COUNT 12.0 11.8 - 15.1 07/29 Specimen Type: BLOOD No comment entered. Ordering Provider: DEANNA AGUILERA Report Released Date/Time: Jul 29, 2024 01:26 PM Reporting Lab: [facility] [address] [place] [address] Performing Lab: [facility] [address] [place] [address] [facility] CBC LYMPHOCYTES /100 LEUKOCYTES IN BLOOD BY AUTOMATED COUNT 38 07/29 Specimen Type: BLOOD No comment entered. Ordering Provider: DEANNA AGUILERA Report Released Date/Time: Jul 29, 2024 01:26 PM Reporting Lab: [facility] [address] [facility] [address] Performing Lab: [facility] [address] [facility] [address] [facility] CBC MONOCYTES/1 00 LEUKOCYTES IN BLOOD BY AUTOMATED COUNT 7 07/29 Specimen Type: BLOOD No comment entered. Ordering Provider: DEANNA AGUILERA Report Released Date/Time: Jul 29, 2024 01:26 PM Reporting Lab: [facility] [address] [facility] [address] Performing Lab: [facility] [address] [facility] [address] [facility] CBC NEUTROPHILS /100 LEUKOCYTES IN BLOOD BY AUTOMATED COUNT 52 07/29 Specimen Type: BLOOD No comment entered. Ordering Provider: DEANNA AGUILERA Report Released Date/Time: Jul 29, 2024 01:26 PM Reporting Lab: [facility] [address] [facility] [address] Performing Lab: [facility] [address] [facility] [address] [facility] CBC EOSINOPHILS /100 LEUKOCYTES IN BLOOD BY AUTOMATED COUNT 2 07/29 Specimen Type: BLOOD No comment entered. Ordering Provider: DEANNA AGUILERA Report Released Date/Time: Jul 29, 2024 01:26 PM Reporting Lab: [address] [address] Performing Lab: [place] [address] [facility] [address] [facility] CBC BASOPHILS/1 00 LEUKOCYTES IN BLOOD BY AUTOMATED COUNT 0 07/29 Specimen Type: BLOOD No comment entered. Ordering Provider: DEANNA AGUILERA Report Released Date/Time: Jul 29, 2024 01:26 PM Reporting Lab: [address] [address] Performing Lab: [address] [address] [facility] CBC LYMPHOCYTES [#/VOLUME] IN BLOOD BY AUTOMATED COUNT 2.28 10*3/u L 0.77 - 4.50 07/29 Specimen Type: BLOOD No comment entered. Ordering Provider: DEANNA AGUILERA Report Released Date/Time: Jul 29, 2024 01:26 PM Reporting Lab: [address] [address] Performing Lab: [facility] [address] [place] [address] [facility] CBC MONOCYTES [#/VOLUME] IN BLOOD BY AUTOMATED COUNT 0.42 10*3/u L 0.19 - 0.80 07/29 Specimen Type: BLOOD No comment entered. Ordering Provider: DEANNA AGUILERA Report Released Date/Time: Jul 29, 2024 01:26 PM Reporting Lab: [facility] [address] [place] [address] Performing Lab: [place] [phone] CBC NEUTROPHILS [#/VOLUME] IN BLOOD BY AUTOMATED COUNT 3.11 10*3/u L 2.10 - 8.00 07/29 Specimen Type: BLOOD No comment entered. Ordering Provider: DEANNA AGUILERA Report Released Date/Time: Jul 29, 2024 01:26 PM Reporting Lab: [place] [address] Performing Lab: [address] CBC EOSINOPHILS [#/VOLUME] IN BLOOD BY AUTOMATED COUNT 0.13 10*3/u L 0.00 - 0.60 07/29 Specimen Type: BLOOD No comment entered. Ordering Provider: DEANNA AGUILERA Report Released Date/Time: Jul 29, 2024 01:26 PM Reporting Lab: [place] [phone] Performing Lab: [place] [phone] CBC BASOPHILS [#/VOLUME] IN BLOOD BY AUTOMATED COUNT 0.02 10*3/u L 0.00 - 0.20 07/29 Specimen Type: BLOOD No comment entered. Ordering Provider: DEANNA AGUILERA Report Released Date/Time: Jul 29, 2024 01:26 PM Reporting Lab: [place] [address] Performing Lab: [address] TSH (MA-PB) THYROTROPIN [UNITS/VOLU ME] IN SERUM OR PLASMA 1.245 u[IU]/ mL 0.47 - 5 07/29 Specimen Type: SERUM Comment: The listed sex of this patient may not be a typical indication for this test. Therefore, reference ranges or interpretiv e criteria listed may not be valid. Clinical correlation suggested. Ordering Provider: DEANNA AGUILERA Report Released Date/Time: Jul 29, 2024 01:26 PM Reporting Lab: [facility] [address] [place] [address] Performing Lab: [address] [address] [facility] GLUCOSE,B LOOD-poct (STL) GLUCOSE [MASS/VOLUM E] IN BLOOD BY AUTOMATED TEST STRIP 122 mg/dL 72 - 99 07/29 H Specimen Type: BLOOD Comment: Test Performed by: [id number] Meter #: [id number] Ordering Provider: DEANNA AGUILERA Report Released Date/Time: Jul 29, 2024 02:46 PM Reporting Lab: [facility] [address] [facility] [address] Performing Lab: [facility] [address] [facility] [address] [facility] VITAMIN D, 25-HYDROX Y 25-HYDROXYV ITAMIN D3 [MASS/VOLUM E] IN SERUM OR PLASMA 23.4 ng/mL 30 - 96 10/02 L Specimen Type: SERUM Comment: The listed sex of this patient may not be a typical indication for this test. Therefore, reference ranges or interpretiv e criteria listed may not be valid. Clinical correlation suggested. Ordering Provider: PAUL NUNEZ Report Released Date/Time: Oct 02, 2023 01:43 PM Reporting Lab: [facility] [address] [place] [phone] Performing Lab: [address] [address] [facility] Vital Signs Combined list of inpatient and outpatient Vital Signs from Department of Defense and Veterans Affairs, ranging from 12 months to all on record, depending upon the facility. Vital Sign Value Date Comments Source SYSTOLIC BLOOD PRESSURE 104 01/26/2025 13:50:05 [facility] DIASTOLIC BLOOD PRESSURE 68 01/26/2025 13:50:05 [facility] PULSE OXIMETRY 97 01/26/2025 13:50:05 [facility] WEIGHT 280 01/26/2025 13:50:05 [facility] BMI 34 kg/m2 01/26/2025 13:50:05 [facility] PAIN 4 01/26/2025 13:50:05 [facility] HEIGHT 76 01/26/2025 13:50:05 [facility] TEMPERATURE 97.7 01/26/2025 13:50:05 [facility] PULSE 82 01/26/2025 13:50:05 [facility] RESPIRATION 20 01/26/2025 13:50:05 [facility] SYSTOLIC BLOOD PRESSURE 108 07/29/2024 12:43:16 [facility] DIASTOLIC BLOOD PRESSURE 72 07/29/2024 12:43:16 [facility] PULSE OXIMETRY 98 07/29/2024 12:43:16 [facility] WEIGHT 292 07/29/2024 12:43:16 [facility] BMI 36 kg/m2 07/29/2024 12:43:16 [facility] PAIN 5 07/29/2024 12:43:16 [facility] HEIGHT 76 07/29/2024 12:43:16 [facility] TEMPERATURE 97.4 07/29/2024 12:43:16 [facility] PULSE 63 07/29/2024 12:43:16 [facility] RESPIRATION 20 07/29/2024 12:43:16 [facility] SYSTOLIC BLOOD PRESSURE 117 04/18/2024 10:09:58 [facility] DIASTOLIC BLOOD PRESSURE 78 04/18/2024 10:09:58 [facility] PULSE OXIMETRY 96 04/18/2024 10:09:58 [facility] [place] WEIGHT 328 04/18/2024 10:09:58 [facility] BMI 40 kg/m2 04/18/2024 10:09:[facility] PAIN 6 04/18/2024 10:09:[facility] HEIGHT 76 04/18/2024 10:09:58 [facility] TEMPERATURE 97.7 04/18/2024 10:09:58 [facility] PULSE 60 04/18/2024 10:09:58 [facility] RESPIRATION 18 04/18/2024 10:09:58 [facility] Encounters Combined list of: 1) Encounters from Department of Veterans Affairs facilities going backup to the last 18 months, not all VA inpatient encounters are included; 2) Encounters from the Department of Defense facilities going backup to 280 months. Location Location Details Encounter Type Encounter Number Reason For Visit Attending Provider ADM Date DC Date Status Disposition Source JOHANNA Jain [facility]( [facility]) OUTPATIENT [id number] Knee pain with flynnment [facility] 08[facility]04 Released with Work/Duty Limitations JOHANNA Jain [facility] Red) JOHANNA Jain [facility]( [facility] M01C H White) OUTPATIENT [id number] knee pain RANGEL NUNEZ 09/04 Released w/o Limitations [facility] White) JOHANNA Jain [facility]( [facility] M01A FP Red) OUTPATIENT [id number] id SOPHIE Pelayo 04/14 Released w/o Limitations [facility]NA [facility] M[facility] FP Red) JOHANNA Jain [facility]( [facility] M01C H White) OUTPATIENT [id number] 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 two 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 RANGEL Esteban 05/05 Released w/o Limitations [facility]NA [facility] M01C H White) JOHANNA Jain [facility]( [facility] M01A FP Red) OUTPATIENT [id number] id SOPHIE Pelayo 05/06 Released w/o Limitations JOHANNA CLEMENTGOOD -[facility] M01A FP Red) [facility]NA [facility]( Immunizat ions Melody ) OUTPATIENT [id number] imm KANWAL BOLAÑOS B 05/12 Released w/o Limitations JOHANNA [facility](Imm unizati ons Humphre ys) [facility]OH[facility]NA [facility]( Hearing Program [facility]) OUTPATIENT [id number] part 1 retirem ent AXEL JAMES Susy 05/18 Released w/o Limitations JOHANNA Jain [facility]PEZ -[facility](Hea ring Program [facility]) [facility] MTMS BY PHARM ADDL 15 MIN [id number] Diagnos is: ICD-10- CM Z79.899 Other ocean transportation intermediary (curren t) drug therapy NICOLASA WARREN M 09/25 [facility] Outpatient Encounter [id number] HOLLI RAMON M 10/01 [facility] O/[place] 60 MIN [id number] Diagnos is: ICD-10- CM M54.50 Low back pain, unspeci MET LUCIA Guzman 10/02 [facility] Outpatient Encounter [id number] 10/05 [facility] SELF-HELP/ PEER SVC PER 15MIN [id number] Diagnos is: ICD-10- CM Z71.89 Other 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 ed assistant counsel Francisca Quinonez 10/20 [facility] Outpatient Encounter [id number] 10/21 [facility] Outpatient Encounter [id number] 10/22 [facility] MANUAL THERAPY 1/> [place] [id number] Diagnos is: ICD-10- CM M54.50 Low back pain, unspeci fied NICOLASA BRUSH TTHEW J 11/26 [facility] OFF/OP EST JANUARY X REQ PHY/QHP [id number] Diagnos is: ICD-10- CM Z23 Encount er for immunkana HENDERSONARNEL 11/30 [facility] MANUAL THERAPY 1/> [place] [id number] Diagnos is: ICD-10- CM M54.50 Low back pain, unspeci fied NICOLASA BRUSH TTHEW J 12/13 [facility] MANUAL THERAPY 1/> [place] [id number] Diagnos is: ICD-10- CM M54.50 Low back pain, unspeci fied NICOLASA BRUSH TTHEW J 01/03 [facility] Outpatient Encounter [id number] 01/04 [facility] En[facility] [id number] 01/21 [facility] MANUAL THERAPY 1/> [place] [id number] Diagnos is: ICD-10- CM M54.50 Low back pain, unspeci fied NICOLASA BRUSH TTHEW J 02/03 [facility] MANUAL THERAPY 1/> [place] [id number] Diagnos is: ICD-10- CM M54.50 Low back pain, unspeci fied NICOLASA BRUSH TTHEW J 03/07 [facility] MANUAL THERAPY 1/> [place] [id number] Diagnos is: ICD-10- CM M54.50 Low back pain, unspeci fied SETHTOMNICOLASA TTHEW J 03/28 [facility] Outpatient Encounter [id number] 04/08 [facility] O/P EST [place] 40 MIN [id number] Diagnos is: ICD-10- CM J45.909 Unspeci fied asthma, uncompl icated JAZMÍN,CH IDIMMA N 04/18 [facility] Outpatient Encounter [id number] 04/20 [facility] Outpatient Encounter [id number] 07/05 [facility] Outpatient Encounter [id number] 07/06 [facility] Outpatient Encounter [id number] 07/14 [facility] HC PRO PHONE CALL 21-30 MIN [id number] Diagnos is: ICD-10- CM E11.9 Type 2 diabete s mellitu s without complic ations ROBERT BARRIOS ISTINE M 07/22 [facility] O/P EST MOD 30 MIN [id number] Diagnos is: ICD-10- CM J45.909 Unspeci fied asthma, uncompl icated DEANNA AGUILERA 07/29 [facility] Outpatient Encounter [id number] ROBERT BARRIOS ISCORIN M 08/18 [facility] En[facility] [id number] 01/25 [facility] Outpatient Encounter [id number] 01/26 [facility] Outpatient Encounter [id number] 01/26 [facility] DETCJ/MNTR DS STAFF [id number] Diagnos is: ICD-10- CM Z13.5 Encount er for screeni ng for eye and ear disorde rs BOLANDLEANN MILLER 01/26 [facility] FEE [id number] Diagnos is: ICD-10- CM J45.909 Unspeci fied asthma, uncompl icated WENDY,DED RA M 01/[address] [facility] SYNCH AUDIO-VIDE O EST LOW 20 [id number] Diagnos is: ICD-10- CM J45.909 Unspeci fied asthma, uncompl icated WENDY,DED RA M 01/26 [facility] UNLISTED OPH SVC/PROCED URE [id number] Diagnos is: ICD-10- CM Z13.9 Encount er for dom lopez M ARY PATRICIA 01/26 [facility] Procedures Combined list of: 1) Procedures from [facility] Affairs facilities going back up to thelast 18 months, not all [place] non-surgical procedures are included; 2) All procedures from the Department of Defense facilities. Procedure Procedure Type Code Date Perfomer Comments [facility] e IMMUNIZATION ADMINISTRATION (INCLUDES PERCUTANEOUS, INTRADERMAL, SUBCUTANEOUS, OR INTRAMUSCULAR INJECTIONS); 1 VACCINE (SINGLE OR COMBINATION VACCINE/TOXOID) 05/12/2007 [facility] ANALYSIS OF CLINICAL DATA STORED IN COMPUTERS (EG, ECGS, BLOOD PRESSURES, HEMATOLOGIC DATA) 04/16/2007 [facility] STRAPPING; ANKLE AND/OR FOOT 03/02/2006 [facility] PURE TONE AUDIOMETRY (THRESHOLD); AIR ONLY 09/18/2003 [facility] PURE TONE AUDIOMETRY (THRESHOLD); AIR ONLY 09/20/2002 [facility] TYPHOID VACCINE, CAPSULAR POLYSACCHARIDE (VICPS), FOR INTRAMUSCULAR USE 05/24/2002 [facility] TYPHOID VACCINE, CAPSULAR POLYSACCHARIDE (VICPS), FOR INTRAMUSCULAR USE 12/20/2001 [facility] SKIN TEST; TUBERCULOSIS, INTRADERMAL 02/03/2001 [facility] LIPOPROTEIN, DIRECT MEASUREMENT; HIGH DENSITY CHOLESTEROL (HDL CHOLESTEROL) 09/29/2000 [facility] PHYS/OTH QUALIFIED HEALTH RETRIEVAL SPECIALIST QUALIFIED,EDUCATION, TRAIN,LICENSURE/REGU LATION (WHEN APPLICABLE) EDUC SER RENDERED TO PATS IN A GRP SETTING (EG,,OBESITY ,OR DIABETIC INSTRUCT) 05/15/2000 [facility] PHYS/OTH QUALIFIED HEALTH RETRIEVAL SPECIALIST QUALIFIED,EDUCATION, TRAIN,LICENSURE/REGU LATION (WHEN APPLICABLE) EDUC SER RENDERED TO PATS IN A GRP SETTING (EG,,OBESITY ,OR DIABETIC INSTRUCT) 04/29/2000 [facility] THERAPEUTIC ACTIVITIES, DIRECT (ONE-ON-ONE) PATIENT CONTACT (USE OF DYNAMIC ACTIVITIES TO IMPROVE FUNCTIONAL PERFORMANCE), EACH 15 MINUTES 04/17/2000 [facility] RANGE OF MOTION MEASUREMENTS AND REPORT (SEPARATE PROCEDURE); EACH EXTREMITY (EXCLUDING HAND) OR EACH TRUNK SECTION (SPINE) 04/14/2000 [facility] PHYSICAL THERAPY RE-EVALUATION 03/19/2000 [facility] THERAPEUTIC PROCEDURE, 1 OR MORE AREAS, EACH 15 MINUTES; THERAPEUTIC EXERCISES TO DEVELOP STRENGTH AND ENDURANCE, RANGE OF MOTION AND FLEXIBILITY 03/18/2000 [facility] THERAPEUTIC PROCEDURE, 1 OR MORE AREAS, EACH 15 MINUTES; THERAPEUTIC EXERCISES TO DEVELOP STRENGTH AND ENDURANCE, RANGE OF MOTION AND FLEXIBILITY 03/06/2000 [facility] THERAPEUTIC PROCEDURE, 1 OR MORE AREAS, EACH 15 MINUTES; THERAPEUTIC EXERCISES TO DEVELOP STRENGTH AND ENDURANCE, RANGE OF MOTION AND FLEXIBILITY 03/02/2000 [facility] THERAPEUTIC PROCEDURE, 1 OR MORE AREAS, EACH 15 MINUTES; THERAPEUTIC EXERCISES TO DEVELOP STRENGTH AND ENDURANCE, RANGE OF MOTION AND FLEXIBILITY 02/28/2000 [facility] THERAPEUTIC PROCEDURE, 1 OR MORE AREAS, EACH 15 MINUTES; THERAPEUTIC EXERCISES TO DEVELOP STRENGTH AND ENDURANCE, RANGE OF MOTION AND FLEXIBILITY 02/26/2000 [facility] THERAPEUTIC PROCEDURE, 1 OR MORE AREAS, EACH 15 MINUTES; THERAPEUTIC EXERCISES TO DEVELOP STRENGTH AND ENDURANCE, RANGE OF MOTION AND FLEXIBILITY 02/24/2000 [facility] THERAPEUTIC PROCEDURE, 1 OR MORE AREAS, EACH 15 MINUTES; THERAPEUTIC EXERCISES TO DEVELOP STRENGTH AND ENDURANCE, RANGE OF MOTION AND FLEXIBILITY 02/21/2000 [facility] THERAPEUTIC PROCEDURE, 1 OR MORE AREAS, EACH 15 MINUTES; THERAPEUTIC EXERCISES TO DEVELOP STRENGTH AND ENDURANCE, RANGE OF MOTION AND FLEXIBILITY 02/20/2000 [facility] STRAPPING; KNEE 02/19/2000 [facility] PHYS/OTH QUALIFIED HEALTH RETRIEVAL SPECIALIST QUALIFIED,EDUCATION, TRAIN,LICENSURE/REGU LATION (WHEN APPLICABLE) EDUC SER RENDERED TO PATS IN A GRP SETTING (EG,,OBESITY ,OR DIABETIC INSTRUCT) 02/18/2000 [facility] EDUCATIONAL SUPPLIES, SUCH BOOKS, TAPES, AND PAMPHLETS, FOR THE PATIENT'S EDUCATION AT COST TO PHYSICIAN OR OTHER QUALIFIED HEALTH RETRIEVAL SPECIALIST 12/10/[address] Services Analysis Of Computerized Data Special Son Services Analysis Of Computerized Data [address]03 05/18/[address]Supervised Group Educational Services 05/18/2007 AXEL JAMES oD Audiometry Group Testing Audiometry Group Testing [id number] 05/18/2007 AXEL JAMES Threshold Audiogram (Pure Tone) Threshold Audiogram (Pure Tone) [id number] 05/18/2007 AXEL JAMES Immunization Administration One Vaccine Immunization Administration One Vaccine 97241 05/12/2007 KANWAL BOLAÑOS Skin Test Anergy Tuberculin Intradermal Skin Test Anergy Tuberculin Intradermal 06121 05/12/2007 MESSERLIE, KANWAL B DoD Social History Combined list of available smoking, tobacco, and other social history from Department of Defense and Veterans Affairs facilities. Social History Type Response Date Comment Sourc e Tobacco smoking status NHIS [facility]-TOBACCO NEVER USED CIGARETTES 01/26/2025 [facility] History of tobacco use [place]-TOBACCO NEVER USED OTHER TYPE 01/26[facility]2025 [facility] History of tobacco use TX-TOBACCO NEVER USED 09/25/2023 [facility] History of tobacco use LIFETIME NON-SMOKER 06/12/2022 [facility] This section is an empty social history section. DoD Plan of Care List of future care activities from Department of Veterans Affairs facilities. Additional future care activities may be listed in the Assessment and Plan section. Date/Time Care Activity Care Activity Detail Facili ty 08/01/2025 AMBULATORY - NONE AMBULATORY - NONE [facility]
--- OUTSIDE RECORDS SUMMARY | 2025-03-17 11:36 | XMS_ITS | Encounter Summary ---
Author Name [facility] Organization [facility] Address [address] [place] [address] Care Team Providers Care Ios Architect Name Role Phone SPIKE NGUYEN Primary Care [...] Relationship to Policy Wayne [facility] 2024 [facility] Sep 07, 2024 [facility] [id number] [phone] ELDA COBIAN PATIENT Selected Encounter This section includes the information on record at [place] for the Encounter. Date/Time Encounter Type Encounter Description Reason Provider Source Jul 29, 2024 12:30 PM OFFICE O/P EST MOD 30 MIN PRIMARY CARE/MEDICINE ICD-10-CM J45.909 Unspecified asthma, uncomplicated EDILBERTO LUTZ IHA[facility]az Encounter Template Text not used by [place] Assessments - Encounter Diagnoses This section includes the primary and secondary diagnoses documented for the Encounter. Date/Time Primary/Secondary Diagnosis Diagnosis Name Provider Source Jul 29, 2024 04:16 PM PRIMARY Unspecified asthma, uncomplicated GIOVANNY LUTZ [facility] Jul 29, 2024 04:16 PM SECONDARY Encounter for immunization NORBERTO RAMON [facility] Jul 29, 2024 04:16 PM SECONDARY Gastro-esophageal reflux disease without esophagitis GIOVANNY LUTZ [facility] Jul 29, 2024 04:16 PM SECONDARY Hyperlipidemia, unspecified GIOVANNY LUTZ [facility] Jul 29, 2024 04:16 PM SECONDARY Low back pain, [facility] Jul 29, 2024 04:16 PM SECONDARY Other fecal abnormalities GIOVANNY LUTZ [facility] Jul 29, 2024 04:16 PM SECONDARY Pain in left foot GIOVANNY LUTZ [facility] Plan of Treatment: Future Appointments (+ 6 months) and Future Tests (+/- 45 days) The Plan of Treatment section includes future care activities for the patient from all [place] treatmentfacilities. This section includes future appointments and future orders which are active, pending or scheduled. Future Appointments This section includes appointments that were scheduled to occur 6 months from the date of the Encounter, up to a maximum of 20 appointments. The data comes from all [place] treatment facilities. Appointment Date/Time Appointment Type Appointme nt Facility Name January 26, 2025 01:00 PM AMBULATORY - NONE [facility] January 26, 2025 01:30 PM AMBULATORY - NONE [facility] January 26, 2025 01:31 PM AMBULATORY - NONE [facility] Lab Results: +/- 30 days of the encounter This section includes the Chemistry and Hematology Lab Results on record with [place] for the patient. Radiology Reports and Pathology Reports are provided separately, in subsequent sections. Lab Results This section contains the Chemistry/Hematology Results that were resulted 30 days before or 30 daysafter the date of the Encounter. Date/Time Source Result Type Result - Unit Interpretation Reference Range Specimen Type Comment Jul 29, 2024 01:36 PM [facility] HGA1C BLOOD Specimen Type: BLOOD No comment entered. Ordering Provider: DEANNA LUTZ Report Released Date/Time: Jul 29, 2024 01:13 PM Reporting Lab: [facility] [address] [facility] [address] Performing Lab: [facility] [address] [facility] [place] [address] HGA1C 10.5 H 4.0-6.0 Jul 29, 2024 01:36 PM [facility] COMPREHENSIVE METABOLIC PANEL PLASMA Specimen Type: PLASMA Comment: No hemolysis noted. Ordering Provider: DEANNA LUTZ Report Released Date/Time: Jul 29, 2024 01:13 PM Reporting Lab: [facility] [address] [facility] [place] [address] Performing Lab: [facility] [address] [facility] [place] [address] CREATININE 0.90 mg/dL 0.7-1.3 UREA NITROGEN 8.7 mg/dL L 9.0-25.0 GLUCOSE 133 mg/dL H 72-99 SODIUM 138 meq/L 136-145 POTASSIUM 4.4 meq/L 3.5-5 CHLORIDE 103 meq/L 98-107 CARBON DIOXIDE 29 meq/L 22-31 CALCIUM 10.1 mg/dL 8.4-10.4 PROTEIN 8.3 g/dL 6-8.6 ALBUMIN 4.3 g/dL 3.4-5 TOTAL BILIRUBIN 0.5 mg/dL 0.2-1.2 ALKALINE PHOSPHATASE 83 U/L 40-150 AST/SGOT 25 U/L 5-34 ALT/SGPT 17 U/L 8-40 EGFR (CKD-EPI 2020) 97.2 >60 Jul 29, 2024 01:36 PM [facility] LIPID PANEL (STL) PLASMA Specimen Type: PLASM A Comment: No hemolysis noted. Ordering Provider: DEANNA LUTZ Report Released Date/Time: Jul 29, 2024 01:13 PM Reporting Lab: [facility] [address] [facility] [place] [address] Performing Lab: [address] [address] CHOLESTEROL 157 mg/dL 0-200 TRIGLYCERIDE 113 mg/dL 0-150 CALCULATED LDL 100 mg/dL HDL(New) 34 mg/dL L >40 Jul 29, 2024 01:36 PM [facility] VITAMIN D, 25-HYDROXY SERUM Specimen Type: SE RUM Comment: The listed sex of this patient may not be a typical indication for this test. Therefore, reference ranges or interpretive criteria listed may not be valid. Clinical correlation suggested. Ordering Provider: DEANNA LUTZ Report Released Date/Time: Jul 29, 2024 01:13 PM Reporting Lab: [facility] [address] [facility] [place] [address] Performing Lab: [facility] [address] [facility] [place] [address] VITAMIN D, 25-HYDROXY 45.8 ng/mL 30-96 Jul 29, 2024 01:36 PM [facility] PROST. SPECIFIC AG.(PB-STL) SERUM Specimen Ty pe: SERUM Comment: The listed sex of this patient may not be a typical indication for this test. Therefore, reference ranges or interpretive criteria listed may not be valid. Clinical correlation suggested. Ordering Provider: DEANNA LUTZ Report Released Date/Time: Jul 29, 2024 01:26 PM Reporting Lab: [facility] [address] [facility] [place] [address] Performing Lab: [facility] [address] [facility] [place] [address] PROST. SPECIFIC AG.(PB-STL) 2.034 ng/mL 0-4 Jul 29, 2024 01:36 PM [facility] CBC BLOOD Specimen Type: BLOOD No comment entered. Ordering Provider: DEANNA LUTZ Report Released Date/Time: Jul 29, 2024 01:26 PM Reporting Lab: [facility] [address] [facility] [place] [address] Performing Lab: [facility] [address] [facility] [place] [address] WBC 6.0 10*3/uL 3.6-11.2 RBC 5.10 10*6/uL 4.10-5.70 HGB 15.6 g/dL 13.1-16.8 HCT 46.4 38.2-48.4 MCV 91.0 fL 80.0-100.0 MCH 30.6 pg 27.0-34.0 MCHC 33.6 g/dL 33.0-36.0 PLT 334 10*3/uL 150-400 MPV 10.8 fL 7.5-11.2 RDW 12.0 11.8-15.1 LYMPHOCYTES, AUTO % 38 MONOCYTES, AUTO % 7 NEUTROPHILS, AUTO % 52 EOSINOPHILS, AUTO % 2 BASOPHILS, AUTO % 0 LYMPHOCYTES, ABSOLUTE 2.28 10*3/uL 0.77- 4.50 MONOCYTES, ABSOLUTE 0.42 10*3/uL 0.19-0. 80 NEUTROPHILS, ABSOLUTE 3.11 10*3/uL 2.10- 8.00 EOSINOPHILS, ABSOLUTE 0.13 10*3/uL 0.00- 0.60 BASOPHILS, ABSOLUTE 0.02 10*3/uL 0.00-0. 20 Jul 29, 2024 01:36 PM [facility] TSH (MA-PB) SERUM Specimen Type: SERUM Comment: The listed sex of this patient may not be a typical indication for this test. Therefore, reference ranges or interpretive criteria listed may not be valid. Clinical correlation suggested. Ordering Provider: DEANNA LUTZ Report Released Date/Time: Jul 29, 2024 01:26 PM Reporting Lab: [facility] [address] [place] [phone] Performing Lab: [facility] [address] [place] [phone] TSH 1.245 u[IU]/mL 0.47-5 Jul 29, 2024 12:40 PM [facility] GLUCOSE,BLOOD-poct (STL) BLOOD Specimen Type: BLOOD Comment: Test Performed by: [id number] Meter #: [id number] Ordering Provider: DEANNA LUTZ Report Released Date/Time: Jul 29, 2024 02:46 PM Reporting Lab: [address] [address] Performing Lab: [address] [address] GLUCOSE,BLOOD-poct (STL) 122 mg/dL H 72-99 Vital Signs: All taken on the encounter date This section contains inpatient and outpatient Vital Signs collected on the date of the Encounter. Date/Time Temperature Pulse Blood Pressure Respiratory Rate SP02 Pain Height Weight Body Mass Index Source Jul 29, 2024 12:43 PM 97.4 63 108/72 20 98 5 76 292 36 [facility] Immunizations: All administered on the encounter date This section contains immunizations associated to the Encounter. Immunization Series Date Issued Administered By Site Reaction Lot Number CVX Code Drug Livestock Yard Supervisor Comment(s) Source INFLUENZA, SPLIT VIRUS, TRIVALENT, PF Jul 29, 2024 RAMONNORBERTO RIGHT DELTO ID [id number] [facility]View [place] Completed Series, ADMINISTERE D AT NE, [facility] Social History: Smoking Status (Most current) and Tobacco Use (All prior to encounter date) This section includes the most current, and the historical, smoking and tobacco- related health factors from the NE facility where the Encounter took place. Current Smoking Status This section includes the most current smoking, or tobacco-related health factor, from the [place] facility where the Encounter took place. Date/Time Current Smoking Status Comment Facil its[facility]etha Sep 25, 2023 03:30 PM VA-TOBACCO NEVER USED [facility] Encounter Notes: All associated encounter notes This section contains the clinical notes associated to the Encounter. Date/Time Encounter Note(s) Provider Source Aug 11, 2024 08:45 AM ADDENDUM: LOCAL TITLE: Addendum STANDARD TITLE: ADDENDUM DATE OF NOTE: AUG 11, 2024@08:45:33 ENTRY DATE: AUG 11, 2024@08:45:35 AUTHOR: DEANNA LUTZ EXP COSIGNER: URGENCY: STATUS: COMPLETED Please inform that his A1c is 10.3 which reflects uncontrolled diabetes. Increase metformin to 1000mg BID. Recheck A1c in 3 months. Other labs are stable. See test result letter for details. /ted/ TAMMY SEARS- NURSE PRACTITIONER Signed: 08/11/2024 08:46 Receipt Acknowledged By: 08/18/2024 11:24 /ted/ DIANNA BARRIOS, RN, BSN Registered Nurse --- Original Document --- 07/29/24 PRIMARY CARE PROVIDER ESTABLISHED VISIT STL: REASON FOR VISIT/CHIEF COMPLAINT: Routine HPI: presents today for routine visit for chronic conditions. Accompanied by . Seeks much of his care through non [place] PCP and specialists. He had lumbar surgery 05/10/24. Post op, began experiencing high blood suagr levels, 500mg/dl. Sought treatment at [facility] was admitted for hypoglycemia. Now on metformin and taking BID. Has upcoming follow up appt with non [place] provider for follow up. Considering Mounjaro. asthma: No cough, wheezing or dyspnea. Using Wixela daily. Rare albuterol use. GERD: Taking omeprazole for reflux. Recently developed tarry stools. Non [place] provider ordered FIT testing which was positive. Plans to follow [facility] non [place] GI hyperlipidemia: Taking rosuvastatin nightly and denies myalgias/myopathies. left foot pain: Persistent left foot pain and swelling. Abnormal foot x-ray recently and thought to have a stress fracture. In the process of scheduling CT low back pain: S/p surgery and slowly improving. Continues to experience pain and lower extremity radiculopathy. Taking gabapentin. SOURCE(S) OF HISTORY: Patient PAST MEDICAL HISTORY: 1) Asthma ([facility] [id number]) 2) GERD - Gastro-Esophageal Reflux Disease ([facility] [id number]) 3) Hyperlipidemia ([facility] [id number]) 4) Chronic rhinitis 5) Low back pain 6) Vitamin D Deficiency ([facility] [id number]) 7) Exposure to potentially hazardous substance 8) Lumbar radiculopathy comment: Bilateral LE EMG 03/07/24 Dr. Mal Deal, chronic L5-S1 ra comment: chronic L5-S1 right radiculopathy, sensorimotor axonal polyneurop ALLERGIES: Patient has answered NKA ALLERGY REVIEW: Allergy list reviewed and remains current. MEDICATIONS: Active and Recently Outpatient Medications (excluding Supplies): Active Outpatient Medications Status 1) ACCU-CHEK GUIDE (GLUCOSE) TEST STRIP USE 1 STRIP FOR ACTIVE BLOOD TEST DIRECTED *METFORMIN ALONE, 50 STRIPS PER YEAR Jun 2) ACCU-CHEK GUIDE ME (GLUCOSE) METER USE GLUCOSE METER ACTIVE FOR DIRECTED FOR BLOOD SUGAR MONITORING -CONTACT COMPANY FOR REPLACEMENT OR PROBLEM 3) ALBUTEROL 90MCG (CFC-F) 200D ORAL INHL INHALE 2 PUFFS ACTIVE ORAL INHALATION FOUR TIMES A DAY NEEDED FOR ASTHMA SHAKE WELL. RINSE MOUTHPIECE FREQUENTLY TO PREVENT CLOGGING. 4) CETIRIZINE HCL 10MG TAB TAKE ONE TABLET BY MOUTH ONCE ACTIVE A DAY FOR ALLERGY SYMPTOMS 5) CHOLECALCIF 25MCG (D3-1,000UNIT) TAB TAKE ONE TABLET ACTIVE BY MOUTH ONCE A DAY FOR VITAMIN D DEFICIENCY 6) FLUTICAS 250/SALMETEROL 50 INHL DISK 60 INHALE 1 ACTIVE INHALATION ORAL INHALATION TWICE A DAY FOR ASTHMA (OPEN DISKUS; CLICK ONLY ONCE; MAY INHALE TWICE TO COMPLETE DOSE; CLOSE WHEN FINISHED) RINSE MOUTH AND SPIT AFTER EACH USE. 7) GABAPENTIN 300MG CAP TAKE ONE CAPSULE BY MOUTH AT ACTIVE BEDTIME FOR NERVE PAIN 8) MONTELUKAST NA 10MG TAB TAKE ONE TABLET BY MOUTH ACTIVE EVERY EVENING FOR ASTHMA 9) OMEPRAZOLE 40MG EC CAP TAKE ONE CAPSULE BY MOUTH ACTIVE EVERY MORNING BEFORE A MEAL FOR GASTROESOPHAGEAL REFLUX DISEASE TAKE 30 MINUTES PRIOR TO FOOD. 10) ROSUVASTATIN CA 20MG TAB TAKE ONE-HALF TABLET [...] 2 ACTIVE PUFFS NOSTRIL(S) ONCE A DAY 15 Total Medications MEDICATION RECONCILIATION: I have reviewed the patient's medication list with the patient and/or his/her care-punch finisher. Handwritten corrections, additions and/or deletions were made to the list. Corrected Outpatient Medication List was provided to the patient/caregiver. LMP: PAP: G P Contraceptive management: Sexual Activity: yes STD's:denies concerns mammography: HRT: family history of breast or HUMIDIFIER ATTENDANT cancer: non-contributory hysterectomy: REVIEW OF SYSTEMS: General: Denies fever or chills, and unexplained weight loss Ears, Nose, Mouth, Throat: Denies hearing loss, nasal drainage or sore throat Endo: Denies heat or cold intolerance, polydipsia, polyuria, or polyphagia Cardiovascular: Denies chest pain, palpitations, or dizziness Respiratory: Denies SOB, cough, sputum, and wheezing ABD/GI: Denies abdominal pain, N/V/D, constipation, heartburn, anorexia, dysphagia, hematochezia, melena, or flatulence Musculoskeletal/Extremities: Denies joint swelling/stiffness/pain, back pain, neck pain and edema /HUMIDIFIER ATTENDANT: Denies dysuria, flank pain, frequency, hesitancy, urgency, or hematuria Psych: Denies depression, anxiety, insomnia, SI/HI Neuro: Denies weakness, numbness, syncope, dizziness, LEO, tremors, neuropathy Skin: Denies rashes, skin lesions PHYSICAL EXAMINATION: VITALS (most recent, as listed in the electronic record): Temperature: 97.4 F [36.3 C] (07/29/2024 12:43) BP: 108/72 (07/29/2024 12:43) Pulse: 63 (07/29/2024 12:43) Resp: 20 (07/29/2024 12:43) PulsOx: 98% (07/29/2024 12:43) Pain: 5 (07/29/2024 12:43) Weight: Measurement DT WEIGHT LB(KG)[BMI] 07/29/2024 12:43 292(132.45)[36*] 04/18/2024 10:09 328(148.78)[40*] 10/02/2023 12:39 322(146.06)[39*] General: pleasant, well appearing adult female in no apparent distress HEENT: mucus membranes moist, oropharynx clear, TMs normal, PERRL, EOMI Neck: supple, no lymphadenopathy or thyromegaly, no carotid bruits Heart: regular rate and rhythm; no murmurs, rubs, or gallops Lungs: respirations regular and non-labored; CTA BL; no wheezes, rhonchi, or rales Abdomen: soft, nontender, nondistended, bowel sounds normal Extremities: warm, well-perfused; no clubbing, cyanosis, or edema; 2+ PT pulses BL Skin: no rashes or lesions noted; good turgor Neuro: A&O x 3, gait steady and normal-based, CN II-XI intact Psych: appropriate mood and affect DATA REVIEW: HGA1C 6.1 H % 10/02/2023 14:01 Lipid Panel: TRIGLYCERIDE 245 H mg/dL 10/02/2023 14:01 CHOLESTEROL 198 mg/dL 10/02/2023 14:01 HDL(New) 46 mg/dL 10/02/2023 14:01 CALCULATED LDL 103 mg/dL 10/02/2023 14:01 CMP: SODIUM 137 mEq/L 10/02/2023 14:01 POTASSIUM 4.3 mEq/L 10/02/2023 14:01 CHLORIDE 102 mEq/L 10/02/2023 14:01 UREA NITROGEN 8.9 L mg/dL 10/02/2023 14:01 CREATININE 1.11 mg/dL 10/02/2023 14:01 CALCIUM 9.8 mg/dL 10/02/2023 14:01 PROTEIN 7.8 g/dL 10/02/2023 14:01 ALBUMIN 4.6 g/dL 10/02/2023 14:01 ALKALINE PHOSPHATASE 52 U/L 10/02/2023 14:01 ALT/SGPT 54 H U/L 10/02/2023 14:01 AST/SGOT 37 H U/L 10/02/2023 14:01 TOTAL BILIRUBIN 1.2 mg/dL 10/02/2023 14:01 CARBON DIOXIDE 26 mEq/L 10/02/2023 14:01 GLUCOSE 106 H mg/dL 10/02/2023 14:01 EGFR (CKD-EPI 2020) 76.0 10/02/2023 14:01 CBC: No CBC EO data found PSA: PROST. SPECIFIC AG.(PB-STL) 1.850 ng/mL 10/02/2023 14:01 Result: Acceptable Follow-up Action: labs ordered___ Data results reviewed with patient and/or caregiver. ASSESSMENT/PLAN: asthma: Stable with Wixela. May continue albuterol on as needed basis. GERD: No reflux. Non [facility] managing. hyperlipidemia: Tolerating statin. Check lipids to assess efficacy. left foot pain: Proceed with foot CT. low back pain: Continue gabapentin and post operative management as recommended by neurosurgery. Type 2 DM: Continue metformin and we will repeat A1c today. Recommend diabetic eye exam. +FIT: To obtain scope through non [facility] GI. Continue PPI. HEALTH MAINTENANCE: CRC screen - 2020, repeat 5 years (2025) age 45 - 75 for average risk PROST. SPECIFIC AG.(PB-STL) 1.850 ng/mL 10/02/2023 14:01 PROST. SPECIFIC AG.(PB-STL) 1.875 ng/mL 06/06/2022 10:53 age 45 - 75 for average risk ADMINISTERED Immunization Series Date Facility Reaction Info COVID-19 (PFIZER), MRNA, LNP-S, * 2 01/29/2021 [facility] COVID-19 (PFIZER), MRNA, LNP-S, * 1 01/02/2021 [facility] [...] Date Facility Info COVID-19 (MODERNA), MRNA, LNP-S,* 07/29/2024 [facility] <I> COVID-19 (MODERNA), MRNA, LNP-S,* 04/18/2024 [facility] <I> COVID-19 (PFIZER), MRNA, LNP-S, * 07/29/2024 [facility] <I> COVID-19 (PFIZER), MRNA, LNP-S, * 04/18/2024 [facility] <I> <I> See the Detailed Immunizations Health Summary Component[DIM] for Additional Information * Value is truncated; see the Detailed Immunizations Health Summary Component[DIM] for complete text Return to clinic 6 months and sooner PRN SUMMARY STATEMENT: Plan of care has been discussed with including expected therapeutic benefits and potential side effects of prescribed medication and treatments. verbalizes understanding and is in agreement with the plan of care. Patient was instructed to keep all scheduled appointments and contact biology tutor for any additional problems. HIV Screening (Routine): Patient has been offered HIV testing and has declined. I have explained that HIV testing is recommended for all adults, even if all risk factors are absent. PAVE Foot Check - L,N,P,PH,PO,PT,U: A complete foot check was completed at this encounter. VISUAL INSPECTION: Includes inspection for skin breaks, deformity, erythema, trauma, pallor on elevation, dependent rubor, nail deformities, extensive callus and pitting edema. Visual exam results: Abnormal Observations: mild left midfoot edema PEDAL PULSES: Includes palpation of dorsalis and posterior tibial pulses and signs/symptoms of vascular compromise like pain, pallor, parasthesia or paralysis. Present (even if diminished) SENSORY CHECK: Includes 10 gram Monofilament (Tunica-Nallely) test of sensation. Intact (Greater than or equal to 80% of sites checked) Abnormal (Less than 80% of sites checked): Intact LOW-RISK: LOW RISK INFORMATION PROVIDED: 1. Advised patient not to walk barefoot. 2. Explained the importance of daily foot checks for changes. 3. Stressed the importance of daily foot hygiene, including bathing and complete drying. /ted/ TAMMY SEARS- NURSE PRACTITIONER Signed: 08/01/2024 16:[address] [facility] Aug 11, 2024 08:41 AM PHYSICIAN LETTERS: LOCAL TITLE: TEST RESULT GENERAL LETTER ST[facility] STANDARD TITLE: PHYSICIAN LETTERS DATE OF NOTE: AUG 11, 2024@08:41 ENTRY DATE: AUG 11, 2024@08:41:32 AUTHOR: DEANNA LUTZ EXP COSIGNER: URGENCY: STATUS: COMPLETED [facility] [address] [place] [address] AUG 11, 2024 SANTIAGO COBIAN [address] [place], [place] [address] Dear Santiago Cobian, I would like to update you on your recent test results. LIPID PROFILE - High cholesterol and triglycerides (lipids) are risk factors for heart disease. Your cholesterol should fall between 140 and 200, and your triglycerides levels should be less than or equal to 150. HDL is the good cholesterol and should ideally be greater than 40. LDL is the bad cholesterol and optimal levels should be less than 100 (near optimal is between 100 and 129). TRIGLYCERIDE 113 mg/dL 07/29/2024 13:36 CHOLESTEROL 157 mg/dL 07/29/2024 13:36 HDL(New) 34 L mg/dL 07/29/2024 13:36 CALCULATED LDL 100 mg/dL 07/29/2024 13:36 No DIRECT LDL EO data found These readings are within normal limits. GLUCOSE - Your blood sugar or glucose level result GLUCOSE GLUCOSE 133 H mg/dL 07/29/2024 13:36 These results are abnormal. This reflect diabetes. HEMOGLOBIN A1C - Gives us information about your diabetes (sugar or glucose) control over the past 3 months. Your target is to keep your A1C below 7 %. HGA1C 10.5 H % 07/29/2024 13:36 These results are abnormal. We will increase metformin to 1000mg twice daily. CBC - A complete blood count (CBC) gives important information about the kinds and numbers of cells in the blood, especially red blood cells, white blood cells, and platelets. HGB 15.6 g/dL 07/29/2024 13:36 HEMATOCRIT 46.4 % (07/29/24 13:36) PLT 334 10*3/uL 07/29/2024 13:36 WHITE BLOOD COUNT 6.0 10*3/uL (07/29/24 13:36) These readings are within normal limits. CHEM 7 - This is important information about the current status of your kidneys, liver, and electrolyte and acid/base balance as well as of your blood sugar and blood proteins. SODIUM 138 mEq/L 07/29/2024 13:36 POTASSIUM 4.4 mEq/L 07/29/2024 13:36 CHLORIDE 103 mEq/L 07/29/2024 13:36 UREA NITROGEN 8.7 L mg/dL 07/29/2024 13:36 CREATININE 0.90 mg/dL 07/29/2024 13:36 CALCIUM 10.1 mg/dL 07/29/2024 13:36 CARBON DIOXIDE 29 mEq/L 07/29/2024 13:36 GLUCOSE 133 H mg/dL 07/29/2024 13:36 EGFR (CKD-EPI 2020) 97.2 07/29/2024 13:36 These readings are within normal limits. LIVER FUNCTION PANEL - These are tests for liver function: PROTEIN 8.3 g/dL 07/29/2024 13:36 ALBUMIN 4.3 g/dL 07/29/2024 13:36 TOTAL BILIRUBIN 0.5 mg/dL 07/29/2024 13:36 ALKALINE PHOSPHATASE 83 U/L 07/29/2024 13:36 AST/SGOT 25 U/L 07/29/2024 13:36 ALT/SGPT 17 U/L 07/29/2024 13:36 These readings are within normal limits. PSA - Prostate-specific antigen is a protein produced by cells of the prostate gland. The PSA test measures the level of PSA in the blood. PSA PROST. SPECIFIC AG.(PB-STL) 2.034 ng/mL 07/29/2024 13:36 These readings are within normal limits. TSH - Thyroid-stimulating hormone (also known as TSH or thyrotropin) is a peptide hormone synthesized and secreted by thyrotrope cells in the anterior pituitary gland, which regulates the endocrine function of the thyroid gland. TSH TSH 1.245 uIU/mL 07/29/2024 13:36 These readings are within normal limits. VITAMIN D - Helps promote the proper utilization of calcium and phosphorus, thereby producing proper bone maintenance. VITAMIN D, 25-HYDROXY 45.8 ng/mL 07/29/2024 13:36 These readings are within normal limits. PLAN I have reviewed your test results and we need to adjust your medication as follows: l Please remember that the same medication may have two different names. We ask that you compare your bottle with your paperwork before taking the medication. FUTURE APPOINTMENTS: 11/11/2024 11:00 DANIEL-ST CLR PACT 5 PCP 01/26/2025 13:30 DANIEL-ST CLR PACT 5 PCP Sincerely, DEANNA LUTZ, ANP- NURSE PRACTITIONER SANTIAGO COBIAN [facility] Jul 29, 2024 01:01 PM PRIMARY CARE NOTE: LOCAL TITLE: PRIMARY CARE PROVIDER ESTABLISHED VISIT [facility] STANDARD TITLE: PRIMARY CARE NOTE DATE OF NOTE: JUL 29, 2024@13:01 ENTRY DATE: JUL 29, 2024@13:01:44 AUTHOR: DEANNA LUTZ EXP COSIGNER: URGENCY: STATUS: COMPLETED PRIMARY CARE PROVIDER ESTABLISHED VISIT [facility] Has ADDENDA REASON FOR VISIT/CHIEF COMPLAINT: Routine HPI: Clifton presents today for routine visit for chronic conditions. Accompanied by . Seeks much of his care through non NE PCP and specialists. He had lumbar surgery 05/10/24. Post op, began experiencing high blood suagr levels, 500mg/dl. Sought treatment at [facility] was admitted for hypoglycemia. Now on metformin and taking BID. Has upcoming follow up appt with non [place] provider for follow up. Considering Mounjaro. asthma: No cough, wheezing or dyspnea. Using Wixela daily. Rare albuterol use. GERD: Taking omeprazole for reflux. Recently developed tarry stools. Non [place] provider ordered FIT testing which was positive. Plans to follow up [facility] GI hyperlipidemia: Taking rosuvastatin nightly and denies myalgias/myopathies. left foot pain: Persistent left foot pain and swelling. Abnormal foot x-ray recently and thought to have a stress fracture. In the process of scheduling CT low back pain: S/p surgery and slowly improving. Continues to experience pain and lower extremity radiculopathy. Taking gabapentin. SOURCE(S) OF HISTORY: Patient PAST MEDICAL HISTORY: 1) Asthma ([facility] [id number]) 2) GERD - Gastro-Esophageal Reflux Disease ([facility] [id number]) 3) Hyperlipidemia ([facility] [id number]) 4) Chronic rhinitis 5) Low back pain 6) Vitamin D Deficiency ([facility] [id number]) 7) Exposure to potentially hazardous substance 8) Lumbar radiculopathy comment: Bilateral LE EMG 03/07/24 Dr. Mal Deal, chronic L5-S1 ra comment: chronic L5-S1 right radiculopathy, sensorimotor axonal polyneurop ALLERGIES: Patient has answered NKA ALLERGY REVIEW: Allergy list reviewed and remains current. MEDICATIONS: Active and Recently Outpatient Medications (excluding Supplies): Active Outpatient Medications Status 1) ACCU-CHEK GUIDE (GLUCOSE) TEST STRIP USE 1 STRIP FOR ACTIVE BLOOD TEST DIRECTED *METFORMIN ALONE, 50 STRIPS PER YEAR Jun 2) ACCU-CHEK GUIDE ME (GLUCOSE) METER USE GLUCOSE METER ACTIVE FOR DIRECTED FOR BLOOD SUGAR MONITORING -CONTACT COMPANY FOR REPLACEMENT OR PROBLEM 3) ALBUTEROL 90MCG (CFC-F) 200D ORAL INHL INHALE 2 PUFFS ACTIVE ORAL INHALATION FOUR TIMES A DAY NEEDED FOR ASTHMA SHAKE WELL. RINSE MOUTHPIECE FREQUENTLY TO PREVENT CLOGGING. 4) CETIRIZINE HCL 10MG TAB TAKE ONE TABLET BY MOUTH ONCE ACTIVE A DAY FOR ALLERGY SYMPTOMS 5) CHOLECALCIF 25MCG (D3-1,000UNIT) TAB TAKE ONE TABLET ACTIVE BY MOUTH ONCE A DAY FOR VITAMIN D DEFICIENCY 6) FLUTICAS 250/SALMETEROL 50 INHL DISK 60 INHALE 1 ACTIVE INHALATION ORAL INHALATION TWICE A DAY FOR ASTHMA (OPEN DISKUS; CLICK ONLY ONCE; MAY INHALE TWICE TO COMPLETE DOSE; CLOSE WHEN FINISHED) RINSE MOUTH AND SPIT AFTER EACH USE. 7) GABAPENTIN 300MG CAP TAKE ONE CAPSULE BY MOUTH AT ACTIVE BEDTIME FOR NERVE PAIN 8) MONTELUKAST NA 10MG TAB TAKE ONE TABLET BY MOUTH ACTIVE EVERY EVENING FOR ASTHMA 9) OMEPRAZOLE 40MG EC CAP TAKE ONE CAPSULE BY MOUTH ACTIVE EVERY MORNING BEFORE A MEAL FOR GASTROESOPHAGEAL REFLUX DISEASE TAKE 30 MINUTES PRIOR TO FOOD. 10) ROSUVASTATIN CA 20MG TAB TAKE ONE-HALF TABLET [...] 2 ACTIVE PUFFS NOSTRIL(S) ONCE A DAY 15 Total Medications MEDICATION RECONCILIATION: I have reviewed the patient's medication list with the patient and/or his/her care-punch finisher. Handwritten corrections, additions and/or deletions were made to the list. Corrected Outpatient Medication List was provided to the patient/caregiver. LMP: PAP: G P Contraceptive management: Sexual Activity: yes STD's:denies concerns mammography: HRT: family history of breast or HUMIDIFIER ATTENDANT cancer: non-contributory hysterectomy: REVIEW OF SYSTEMS: General: Denies fever or chills, and unexplained weight loss Ears, Nose, Mouth, Throat: Denies hearing loss, nasal drainage or sore throat Endo: Denies heat or cold intolerance, polydipsia, polyuria, or polyphagia Cardiovascular: Denies chest pain, palpitations, or dizziness Respiratory: Denies SOB, cough, sputum, and wheezing ABD/GI: Denies abdominal pain, N/V/D, constipation, heartburn, anorexia, dysphagia, hematochezia, melena, or flatulence Musculoskeletal/Extremities: Denies joint swelling/stiffness/pain, back pain, neck pain and edema /HUMIDIFIER ATTENDANT: Denies dysuria, flank pain, frequency, hesitancy, urgency, or hematuria Psych: Denies depression, anxiety, insomnia, SI/HI Neuro: Denies weakness, numbness, syncope, dizziness, LEO, tremors, neuropathy Skin: Denies rashes, skin lesions PHYSICAL EXAMINATION: VITALS (most recent, as listed in the electronic record): Temperature: 97.4 F [36.3 C] (07/29/2024 12:43) BP: 108/72 (07/29/2024 12:43) Pulse: 63 (07/29/2024 12:43) Resp: 20 (07/29/2024 12:43) PulsOx: 98% (07/29/2024 12:43) Pain: 5 (07/29/2024 12:43) Weight: Measurement DT WEIGHT LB(KG)[BMI] 07/29/2024 12:43 292(132.45)[36*] 04/18/2024 10:09 328(148.78)[40*] 10/02/2023 12:39 322(146.06)[39*] General: pleasant, well appearing adult female in no apparent distress HEENT: mucus membranes moist, oropharynx clear, TMs normal, PERRL, EOMI Neck: supple, no lymphadenopathy or thyromegaly, no carotid bruits Heart: regular rate and rhythm; no murmurs, rubs, or gallops Lungs: respirations regular and non-labored; CTA BL; no wheezes, rhonchi, or rales Abdomen: soft, nontender, nondistended, bowel sounds normal Extremities: warm, well-perfused; no clubbing, cyanosis, or edema; 2+ PT pulses BL Skin: no rashes or lesions noted; good turgor Neuro: A&O x 3, gait steady and normal-based, CN II-XI intact Psych: appropriate mood and affect DATA REVIEW: HGA1C 6.1 H % 10/02/2023 14:01 Lipid Panel: TRIGLYCERIDE 245 H mg/dL 10/02/2023 14:01 CHOLESTEROL 198 mg/dL 10/02/2023 14:01 HDL(New) 46 mg/dL 10/02/2023 14:01 CALCULATED LDL 103 mg/dL 10/02/2023 14:01 CMP: SODIUM 137 mEq/L 10/02/2023 14:01 POTASSIUM 4.3 mEq/L 10/02/2023 14:01 CHLORIDE 102 mEq/L 10/02/2023 14:01 UREA NITROGEN 8.9 L mg/dL 10/02/2023 14:01 CREATININE 1.11 mg/dL 10/02/2023 14:01 CALCIUM 9.8 mg/dL 10/02/2023 14:01 PROTEIN 7.8 g/dL 10/02/2023 14:01 ALBUMIN 4.6 g/dL 10/02/2023 14:01 ALKALINE PHOSPHATASE 52 U/L 10/02/2023 14:01 ALT/SGPT 54 H U/L 10/02/2023 14:01 AST/SGOT 37 H U/L 10/02/2023 14:01 TOTAL BILIRUBIN 1.2 mg/dL 10/02/2023 14:01 CARBON DIOXIDE 26 mEq/L 10/02/2023 14:01 GLUCOSE 106 H mg/dL 10/02/2023 14:01 EGFR (CKD-EPI 2020) 76.0 10/02/2023 14:01 CBC: No CBC EO data found PSA: PROST. SPECIFIC AG.(PB-STL) 1.850 ng/mL 10/02/2023 14:01 Result: Acceptable Follow-up Action: labs ordered___ Data results reviewed with patient and/or caregiver. ASSESSMENT/PLAN: asthma: Stable with Wixela. May continue albuterol on as needed basis. GERD: No reflux. [facility]. hyperlipidemia: Tolerating statin. Check lipids to assess efficacy. left foot pain: Proceed with foot CT. low back pain: Continue gabapentin and post operative management as recommended by neurosurgery. Type 2 DM: Continue metformin and we will repeat A1c today. Recommend diabetic eye exam. +FIT: To obtain scope through [facility]. Continue PPI. HEALTH MAINTENANCE: CRC screen - 2020, repeat 5 years (2025) age 45 - 75 for average risk PROST. SPECIFIC AG.(PB-STL) 1.850 ng/mL 10/02/2023 14:01 PROST. SPECIFIC AG.(PB-STL) 1.875 ng/mL 06/06/2022 10:53 age 45 - 75 for average risk ADMINISTERED Immunization Series Date Facility Reaction Info COVID-19 (PFIZER), MRNA, LNP-S, * 2 01/29/2021 [facility] COVID-19 (PFIZER), MRNA, LNP-S, * 1 01/02/2021 [facility] [...] Date Facility Info COVID-19 (MODERNA), MRNA, LNP-S,* 07/29/20[facility] <I> COVID-19 (MODERNA), MRNA, LNP-S,* 04/18/2024 [facility] <I> COVID-19 (PFIZER), MRNA, LNP-S, * 07/29/2024 [facility] <I> COVID-19 (PFIZER), MRNA, LNP-S, * 04/18/2024 [facility] <I> <I> See the Detailed Immunizations Health Summary Component[DIM] for Additional Information * Value is truncated; see the Detailed Immunizations Health Summary Component[DIM] for complete text Return to clinic 6 months and sooner PRN SUMMARY STATEMENT: Plan of care has been discussed with including expected therapeutic benefits and potential side effects of prescribed medication and treatments. Clifton verbalizes understanding and is in agreement with the plan of care. Patient was instructed to keep all scheduled appointments and contact biology tutor for any additional problems. HIV Screening (Routine): Patient has been offered HIV testing and has declined. I have explained that HIV testing is recommended for all adults, even if all risk factors are absent. PAVE Foot Check - L,N,P,PH,PO,PT,U: A complete foot check was completed at this encounter. VISUAL INSPECTION: Includes inspection for skin breaks, deformity, erythema, trauma, pallor on elevation, dependent rubor, nail deformities, extensive callus and pitting edema. Visual exam results: Abnormal Observations: mild left midfoot edema PEDAL PULSES: Includes palpation of dorsalis and posterior tibial pulses and signs/symptoms of vascular compromise like pain, pallor, parasthesia or paralysis. Present (even if diminished) SENSORY CHECK: Includes 10 gram Monofilament (Tunica-Nallely) test of sensation. Intact (Greater than or equal to 80% of sites checked) Abnormal (Less than 80% of sites checked): Intact LOW-RISK: LOW RISK INFORMATION PROVIDED: 1. Advised patient not to walk barefoot. 2. Explained the importance of daily foot checks for changes. 3. Stressed the importance of daily foot hygiene, including bathing and complete drying. /MYA Burks NURSE PRACTITIONER Signed: 08/01/2024 16:14 08/11/2024 ADDENDUM STATUS: COMPLETED Please inform that his A1c is 10.3 which reflects uncontrolled diabetes. Increase metformin to 1000mg BID. Recheck A1c in 3 months. Other labs are stable. See test result letter for details. /MYA Burks NURSE PRACTITIONER Signed: 08/11/2024 08:46 Receipt Acknowledged By: * AWAITING SIGNATURE * [facility]AN[facility] BARRIOS [facility] Jul 29, 2024 12:44 PM NURSING NOTE: LOCAL TITLE: V15 PACT FACE TO FACE NOTE ST STANDARD TITLE: NURSING NOTE DATE OF NOTE: JUL 29, 2024@12:44 ENTRY DATE: JUL 29, 2024@12:44:13 AUTHOR: NORBERTO RAMON COSIGNER: URGENCY: STATUS: COMPLETED Provider Visit: Patient Identifiers : Full Name Date of Reason for visit: Established Follow-Up 59 yr old male. Pt is alert and ambulatory. Pt is able to make his needs known and has complaints of pain in his left ankle. Pt states he has a fractured his ankle and denies any accidents. Pt states he had back surgery done 10 May 2024 at [facility]. Pt states he had to go to the ER at [facility] Jul 01 2024 for dehydration and high blood sugar. Pt is now taking Metformin 1000mg daily. Mode of Arrival: Ambulatory Allergy Review: Patient has answered NKA Allergy list reviewed and remains current. Recent Vital Signs: Temperature: 97.4 F [36.3 C] (07/29/2024 12:43) Pulse: 63 (07/29/2024 12:43) Respiration: 20 (07/29/2024 12:43) B/P: 108/72 (07/29/2024 12:43) Pain: 5 (07/29/2024 12:43) Wt: 292 lb [132.45 kg] (07/29/2024 12:43) Ht: 76 in [193.0 cm] (07/29/2024 12:43) BMI: 35.6 POX: 98% (07/29/2024 12:43) Blood sugar glucometer readin Would you like to discuss any personal problem, family problem, alcohol use, drug use, or a mental or emotional illness? No My [facility] ([facility]), please select appointment type: Face to face: Yes-Do you have an upgraded (Premium) account which gives you the added benefit of Secure Messaging with your Primary Care Provider and refilling your prescriptions online? Contact provided Primary Care phone number and encouraged to call if any questions or concerns. Review that after hours nurse line [phone] and emergency room are available 30/03 for patient use. Contact verbalized good understanding. COVID-19 Immunization - L,N,P,PH,U: Refused Moderna Monovalent COVID-19 vaccine Immunization: COVID-19 (MODERNA), MRNA, LNP-S, PF, 50 MCG/0.5 ML (AGES 12+ YEARS) Refusal Reason: PATIENT DECISION Patient refuses all immunization(s) in the COVID-19 group Date Documented: 07/29/24 12:51 Refused Pfizer Monovalent COVID-19 vaccine Immunization: COVID-19 (PFIZER), MRNA, LNP-S, PF, EVARISTO-SUCROSE, 30 MCG/0.3 ML (AGES 12+ YEARS) Refusal Reason: PATIENT DECISION Patient refuses all immunization(s) in the COVID-19 group Date Documented: 07/29/24 12:51 Influenza Immunization - L,N,P,PH,U: Influenza, Trivalent, Preservative Free (Fluarix-Syringe) Administered: INFLUENZA, SPLIT VIRUS, TRIVALENT, PF Date Administered: Jul 29, 2024 12:30 Series: Complete Livestock Yard Supervisor: Gidsy Lot: [id number] Exp Date: Mar 06, [address] [facility]: [phone] Admin Route/Site: INTRAMUSCULAR/RIGHT DELTOID Dosage: 0.5mL Vaccine Information Statement(s): INFLUENZA(FLU) VACC(INACTIVATED OR RECOMBINANT)VIS Apr 12, 2021 (UZBEK) Order By: Deanna Lutz Administered By: Norberto Ramon The Influenza Vaccine Information Statement (VIS) was reviewed with the patient/caregiver which lists the benefits and risks of the vaccine and the risks of not receiving the Influenza vaccine. The patient/caregiver denied any prior severe reaction to this vaccine or its components or a severe allergic reaction, such as anaphylaxis, to any vaccine or any injectable therapy. The patient/caregiver gave verbal consent to receive the vaccine. /es/ NORBERTO RAMON Licensed Practical Nurse Signed: 07/29/2024 12:56 NORBERTO RAMON [facility]
--- OUTSIDE RECORDS SUMMARY | 2025-03-17 11:36 | XMS_ITS | Clinical Summary ---
Author Organization [facility] Address [address] [place] [address] Care Team Providers Care Project Manager Interior Design Name Role Phone Unavailable Primary Care Provider Unavailabl e Allergies No known active allergies Medications albuterol sulfate 90 mcg/Actuation inhaler ProAir HFA 90 mcg/actuation aerosol inhaler 0 Active cetirizine (ZyrTEC) 10 mg tablet 2 Active montelukast (SINGULAIR) 10 mg tablet 2 Active omeprazole (PriLOSEC) 40 mg Capsule, Delayed Release(E.C.) 2 Active rosuvastatin (CRESTOR) 10 mg tablet 2 Active Xyosted 75 mg/0.5 mL Auto-Injector Inject 75 mg by subcutaneous injection every 7 days. 3 Active aspirin (ECOTRIN EC) 81 mg Tablet, Delayed Release (E.C.) Take 81 mg by mouth daily. 4 Active cholecalciferol , vitamin D3, 1,000 unit Take 1,000 Units by mouth. 4 Active acetaminophen (TYLENOL) 325 mg tablet Take 325 mg by mouth every 6 hours as needed for Pain. Active Active Problems No known active problems Family History Medical History Relation Name Comments No Known Problems Brother No Known Problems Daughter Heart Disease Father Diabetes Mother No Known Problems Son 1 No Known Problems Son 2 No Known Problems Son 3 Relation Name Status Comments Brother Alive Daughter Alive Father Alive Mother Alive Son 1 Alive Son 2 Alive Son 3 Alive Social History Tobacco Use Types Packs/Day Years Used Date Smoking Tobacco: Never Smokeless Tobacco: Never Tobacco Cessation:Counseling Given: Not Answered Alcohol Use Standard Drinks/Week Comments Yes 0 (1 standard drink = 0.6 oz pur e alcohol) occasionally Sex and Gender Information Value Date Recorded Sex Assigned at Not on file Legal Sex Male 3:35 PM 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 Gender Identity Not on file Sexual Orientation Not on file Last Filed Vital Signs Vital Sign Reading Time Taken Comments Blood Pressure 160/80 08/07/2023 11:41 AM SENIOR MEDICAL WRITER Pulse 69 08/07/2023 11:39 AM SENIOR MEDICAL WRITER Temperature 36.3 C (97.4 F) 08/07/2023 11:39 AM SENIOR MEDICAL WRITER Respiratory Rate 10 08/07/2023 11:39 AM SENIOR MEDICAL WRITER Oxygen Saturation 98% 08/07/2023 11:39 AM SENIOR MEDICAL WRITER Inhaled Oxygen Concentration - - Weight 142.9 kg (315 lb) 08/07/2023 11:39 AM SENIOR MEDICAL WRITER Height 193 cm (6' 4) 08/26/2022 1:04 PM SENIOR MEDICAL WRITER Body Mass Index 38.34 08/26/2022 1:04 PM SENIOR MEDICAL WRITER Plan of Treatment Upcoming Encounters Date Type Department Care Team (Late st Contact Info) Description 03/24/2025 11:15 AM CDT Office Visit [facility] - [place] [address] [facility] [address] [place] [address] Nic Pearl MD [address] [facility] [address] [place] [address] Health Maintenance Due Date Last Done Comments FIT-DNA Q 3 years 2008 FIT/FOBT Q 1 year 2008 Flex Sig/CT Colonography Q 5 years 2008 RSV VACCINE (60+ or ) (1 - Risk 60-74 years 1-dose series) 2023 INFLUENZA VACCINE (#1) 2025 3, 07/25/2022, 07/19/2019, Additional history exists DTAP/TDAP/TD VACCINES (2 - T d or Tdap) 10/04/2029 10/04/2019 COLORECTAL SCREENING 05/29/2032 05/29/2022 Colorectal Cancer Screening 05/29/2032 ZOSTER VACCINE Completed 12/01/2023, 10/02/2023 Insurance [facility]
[2025-03-17 12:02] LABS: Hematocrit 48.9 % (42.0-52.0); Hemoglobin 17.1 g/dL (14.0-18.0); Immature Granulocyte Percent A 0.2 % (0-0.5); Lymphocytes Absolute Auto 1.93 K/mm3 (0.9-3.2); Mean Corpuscular HGB Conc 35.0 g/dl (32-36); Mean Corpuscular Hemoglobin 32.4 pg (26-34); Mean Corpuscular Volume 92.8 fl (80-100); Nucleated Red Blood Cells Absolute Auto 0.000 K/mm3 (0.0-0.012); Nucleated Red Blood Cells Perc 0.0 % (0.0-0.2); Platelet Count Result 208 k/mm3 (150-375); Red Blood Count 5.27 M/mm3 (4.6-6.20); White Blood Count 5.3 K/mm3 (4.5-10.0)
[2025-03-17 15:41] LABS: Alanine Aminotransferase 23 U/L (6-50); Albumin Level 4.4 g/dL (3.5-5.1); Alkaline Phosphatase 49 U/L (38-126); Anion Gap 10 mmol/L (4-12); Aspartate Amino Transferase 63 U/L (17-59); Bilirubin,Total 1.1 mg/dL (0.2-1.3); Blood Urea Nitrogen 11 mg/dL (9-20); Calcium 9.1 mg/dL (8.4-10.2); Carbon Dioxide 26 mmol/L (22-30); Chloride 102 mmol/L (98-107); Estimated Glomerular Filt Rate > 60; Glucose 84 mg/dL (65-110); Potassium 4.4 mmol/L (3.4-5.0); Sodium 138 mmol/L (137-145); Total Protein 7.9 g/dL (6.3-8.2)
[2025-03-17 15:42] LABS: Iron 96 ug/dL (49-181)
[2025-03-17 15:53] LABS: Percent Iron Saturation 28 % (20-50)
[2025-03-17 16:12] LABS: Prostate Specific Antigen 2.0 ng/mL (< OR = 4.0)
[2025-03-17 16:18] LABS: Ferritin 91.20 ng/mL (11.1-264)
[2025-03-17 16:48] LABS: Vitamin B12 251.0 pg/mL (239-931)
== END 2025-03-17 11:33 | disposition home or self-care (01) ==
PROVIDERS: PCP Student in an Organized Health Care Education/Training Program; Visit Provider Internal Medicine Hematology & Oncology
DX: D75.1 Secondary polycythemia (principal); E83.10 Disorder of iron metabolism, unspecified
CPT/HCPCS: 36415; 80053; 82607; 82728; 82746; 83540; 83550; 84153; 85025; G0103